=== PATIENT | male | born 1985 | race Caucasian/White ===

== ENCOUNTER 2018-10-12 19:42 | Inpatient (IN) | payer BC ==
[~2018-10-12] VITALS: Ht 167.6 cm; Wt 88.6 kg
[~2018-10-12 19:42] MED LIST: AMLO5TAB4 PO; HYDR-4011 PO; HYDR12.58 PO; IBUP-1542 PO; METH57CR7 TP; METO-319 PO
--- NOTE | 2018-10-12 21:10 | ERD ---
ER Documentation Chief Complaint Chief Complaint hx testicular ca, fever yesterday. see note HPI This is a 33-year-old man with a history of metastatic testicular carcinoma presenting with 3 days of fever and cough. He developed a left lateral neck mass and suspicion was for worsening metastasis but when he was evaluated by his oncologist 2 days ago he had a fever and his oncologist referred him to the emergency department for antibiotic management. Patient was admitted at [facility] for sepsis but he decided to leave AGAINST MEDICAL ADVICE because he wanted to make his oncology appointment. He has used 1 day of amoxicillin therapy but has continued fever and cough and came here for evaluation and admission for possible sepsis. Patient denies vomiting or diarrhea, no chest pain, no shortness of breath. ROS All systems reviewed and are negative except as per history of present illness. Medications Home Meds Active Scripts Hydrocodone/Acetaminophen ([place] 5-325 Tablet) 1 Each Tablet, 1 TAB PO Q6H PRN for PAIN, #20 TAB Prov:KIN BUENO 09/12/18 Amlodipine Besylate* (Norvasc*) 5 Mg Tablet, 5 MG PO DAILY, #60 TAB Prov:HAFSA BARRERA 01/09/18 Metoprolol Succinate* (Toprol XL*) 50 Mg Tab.er.24h, 50 MG PO DAILY, #60 TAB Prov:HAFSA BARRERA 01/09/18 Reported Medications Methyl Salicylate/Menthol (Bengay Greaseless Cream) 57 Gm Cream..g., 57 GM TP 09/12/18 Hydrochlorothiazide* (Hydrochlorothiazide*) 12.5 Mg Tablet, 12.5 MG PO DAILY for 90 Days, #90 09/12/18 Ibuprofen* (Ibuprofen*) 600 Mg Tablet, 600 MG PO Q8 PRN for PRN, TAB 01/05/18 Allergies Allergies: Coded Allergies: No Known Allergy (Unverified , 10/12/18) PMhx/Soc Metastatic testicular cancer, hypertension History of Surgery: Yes (Testicular Removal (left)) Anesthesia Reaction: No Hx Neurological Disorder: No Hx Respiratory Disorders: No Hx Cardiac Disorders: Yes (HTN) Hx Psychiatric Problems: No Hx Miscellaneous Medical Probl: Yes (Testicular CA) Hx Alcohol Use: No Hx Substance Use: No Hx Tobacco Use: No Smoking Status: Never smoker FmHx Family History: No diabetes Physical Exam Vitals Vital Signs Date Temp Pulse Resp B/P (MAP) Pulse Ox O2 O2 Flow FiO2 Time Delivery Rate 10/12/18 100.8 124 16 101/56 99 Room Air 22:27 (71) 10/12/18 Nasal 22:10 Cannula 10/12/18 103.0 135 16 113/69 97 Room Air 21:01 (84) 10/12/18 98.7 151 26 111/60 95 20:22 (77) Physical Exam GENERAL: Well-developed, appears dehydrated, febrile HEENT: Large nodular mass to the left lateral neck and upper chest, pale conjunctival, dry mucous membranes NEURO: Alert and oriented 3, cranial nerves II through XII intact bilaterally, pupils equal round reactive to light, no focal deficits or facial asymmetry, sensation intact distally Strength 5/5 in upper and lower extremities bilaterally CARDIAC: Tachycardic and regular no murmurs rubs or gallops LUNGS: Clear bilaterally no wheezing crackles or stridor ABDOMEN: Soft nontender, no guarding, no rigidity, no rebound, no psoas sign no obturator sign. SKIN: Hot and dry to touch, no abrasions, contusions, or hematomas, no lacerations, no ecchymosis, no target lesions, and without ulcers EXTREMITIES: No clubbing cyanosis or edema, calves are bilaterally symmetrical, no Homans sign, no popliteal cord sign. Distal pulses equal and bilateral PSYCH: Normal affect without agitation or irritability Result Diagram: 10/12/18205010/12/182050 Results 24 hrs Laboratory Tests Test 10/12/18 20:51 10/12/18 20:53 10/12/18 21:40 White Blood Count 16.2 10^3/ul Red Blood Count 4.16 10^6/ul Hemoglobin 9.2 g/dl Hematocrit 29.5 % Mean Corpuscular Volume 70.9 fl Mean Corpuscular Hemoglobin 22.1 pg Mean Corpuscular 31.2 g/dl Hemoglobin Concent Red Cell Distribution Width 16.4 % Platelet Count 577 10^3/UL Mean Platelet Volume 8.5 fl Immature Granulocytes % 0.900 % Neutrophils % 81.4 % Lymphocytes % 9.3 % Monocytes % 8.2 % Eosinophils % 0.0 % Basophils % 0.2 % Nucleated Red Blood Cells % 0.0 /100WBC Immature Granulocytes # 0.140 10^3/ul Neutrophils # 13.2 10^3/ul Lymphocytes # 1.5 10^3/ul Monocytes # 1.3 10^3/ul Eosinophils # 0.0 10^3/ul Basophils # 0.0 10^3/ul Nucleated Red Blood Cells # 0.0 10^3/ul Prothrombin Time 16.6 Sec Prothrombin Time Ratio 1.3 INR International 1.33 Normalized Ratio Activated Partial Thromboplast 40.5 Sec Time Sodium Level 134 mmol/L Potassium Level 4.3 mmol/L Chloride Level 95 mmol/L Carbon Dioxide Level 25 mmol/L Anion Gap 14 Blood Urea Nitrogen 18 mg/dl Creatinine 1.27 mg/dl Est Glomerular Filtrat > 60 mL/min Rate mL/min Glucose Level 127 mg/dl Calcium Level 9.4 mg/dl Total Bilirubin 0.4 mg/dl Direct Bilirubin 0.00 mg/dl Indirect Bilirubin 0.4 mg/dl Aspartate Amino Transf (AST/SGOT) 63 IU/L Alanine 20 IU/L Aminotransferase (ALT/SGPT) Alkaline Phosphatase 791 IU/L Troponin I < 0.012 ng/ml Total Protein 9.5 g/dl Albumin 3.9 g/dl Globulin 5.60 g/dl Albumin/Globulin Ratio 0.69 Lipase 55 U/L POC Venous Lactate 1.7 mmol/L Urine Color BO Urine Clarity CLOUDY Urine pH 5.0 Urine Specific [place] 1.021 Urine Ketones NEGATIVE mg/dL Urine Nitrite NEGATIVE mg/dL Urine Bilirubin NEGATIVE mg/dL Urine Urobilinogen 2+ mg/dL Urine Leukocyte Esterase NEGATIVE Suzie/ul Urine Microscopic RBC 92 /HPF Urine Microscopic WBC 11 /HPF Urine Mucus FEW /HPF Urine Hemoglobin 2+ mg/dL Urine Glucose NEGATIVE mg/dL Urine Total Protein 2+ mg/dl Current Medications Medications Dose Sig/Vasyl Start Time Status Last (Trade) Ordered Route PRN Stop Time Admin Dose Reason Admin Sodium 4,000 ml BOLUS OVER 2 10/12/18 DC 10/12/18 Chloride HOURS STAT 21:14 10/12/18 21:38 (NS) IV* 21:16 Ceftriaxone 50 ml @ ONCE ONCE 10/12/18 DC 10/12/18 Sodium 100 mls/hr IVPB 21:30 10/12/18 21:43 21:59 Vancomycin 250 ml @ ONCE ONCE 10/12/18 10/12/18 HCl 125 mls/hr IVPB 21:30 10/12/18 21:39 23:29 Ibuprofen 600 mg ONCE ONCE 10/12/18 DC 10/12/18 (Motrin) PO 22:00 10/12/18 21:37 22:01 Amlodipine 5 mg DAILY PO 10/13/18 Besylate 09:00 (Norvasc) 1 tab Q6H PRN 10/12/18 Acetaminophen PO PAIN 22:30 / Hydrocodone Bitart ([place] (5/325)) Metoprolol 50 mg DAILY PO 10/13/18 Succinate 09:00 (Toprol Xl) Sodium 1,000 ml @ [id number] IV 10/12/18 Chloride 80 mls/hr 22:25 10/13/18 10:54 IV Flush 3 ml PER 10/12/18 (NS 3 ml) PROTOCOL IV 22:30 Ondansetron 4 mg Q6H PRN 10/12/18 HCl (Zofran IV 22:30 Inj) NAUSEA/VOMITI NG 650 mg Q6H PRN 10/12/18 Acetaminophen PO .PAIN 1-3 22:30 (Tylenol OR TEMP Tab) Docusate 100 mg Q12H PRN 10/12/18 Sodium PO 22:30 (Colace) .CONSTIPATION Bisacodyl 5 mg DAILY PRN 10/12/18 (Dulcolax) PO 22:30 .CONSTIPATION Enoxaparin 40 mg DAILY SC 10/13/18 Sodium 09:00 (Lovenox) Azithromycin 250 ml @ Q24H IVPB 10/12/18 250 mls/hr 22:30 Ceftriaxone 50 ml @ ONCE ONCE 10/13/18 Sodium 100 mls/hr IVPB 22:30 10/13/18 22:59 Procedures/MDM IV line was established patient was placed on cryptologic support specialist rhythm strip revealed a sinus tachycardia at 140 bpm with upright P and T waves. Patient was febrile. Blood and urine cultures have been ordered results are pending I will follow-up. I administered 4 L normal saline IV, ibuprofen 600 mg p.o., ceftriaxone 1 g IV, vancomycin 1 g IV Lactic acid was low at 1.7. CBC reveals a leukocytosis of 16 and mild anemia with a hemoglobin of 9.2, electrolytes revealed dehydration with a BUN/creatinine of 18/1.3, liver function tests were unremarkable although alkaline phosphatase elevated at 791, troponin negative, urinalysis negative for infection. 1 view chest x-ray performed, read by me reveals a left lower lobe infiltrate, no pneumothorax, no air under the diaphragm. Patient's infectious symptoms have not stabilized and the patient is at risk of rapid decompensation. The patient will be admitted for careful hydration, antibiotic therapy, and infectious source control. SEVERE SEPSIS CRITERIA: Infectious source: Pneumonia End organ damage indicated by: None SEPSIS MANAGEMENT Time of recognition of sepsis: Upon arrival. Time of recognition of severe sepsis: No severe sepsis at this time. Time of recognition of septic shock: No septic shock at this time. 3 HOUR BUNDLE Blood cultures x 2 before broad-spectrum antibiotics: Yes 30 ml/kg NS bolus completed Initial lactate 1.7 Repeat lactate pending SEPTIC SHOCK ASSESSMENT: No lactic acid > 4.0 No persistent hypotension (SBP < 90 or 40 mmHg drop, MAP < 65) despite 30 mL/kg IV fluid bolus VOLUME REASSESSMENT FOR SEPTIC SHOCK: Reevaluation Time: 2200 Temp 100 F, pulse 120 bpm, respiratory rate 30 breaths/min, BP 114/80 Heart tachycardic and regular Lungs no crackles Skin warm & dry Cap Refill less than 2 seconds Peripheral pulses radially present PERSISTENT HYPOTENSION TREATMENT: Comfort care no Central line not Required Vasopressor started not required I considered further perfusion assessment with CVP measurement, SCVO2, bedside ultrasound volume assessment, passive leg raise, trial of further fluid bolus. And proceeded with 30 ml/kg fluid bolus of NSS, broad spectrum antibiotics, and admission. CRITICAL CARE: Critical care time 35 minutes, this was time separate from other billable procedures. Emergent fluid management while maintaining close respiratory support. Provision of immediate and broad-spectrum antibiotic therapy. Simultaneous assessment for possible sources in order to direct targeted therapy. Consideration for invasive and chemical support to prevent cardiopulmonary collapse. Critical care time is independent of procedures performed. Accepting Care Team: Current data and ongoing care discussed. Time: Time of admission Primary Provider: Hospitalist Consulting: Infectious disease, oncology Outstanding Data: none Departure Diagnosis: Primary Impression: Sepsis Sepsis type: sepsis due to unspecified organism Qualified Codes: A41.9 - Sepsis, unspecified organism Additional Impressions: Pneumonia Pneumonia type: due to unspecified organism Laterality: left Lung location: lower lobe of lung Qualified Codes: J18.1 - Lobar pneumonia, unspecified organism Testicular carcinoma Laterality: unspecified laterality Qualified Codes: C62.90 - Malignant neoplasm of unspecified testis, unspecified whether descended or undescended Condition: Serious BRUCE SANDERS MD Oct 12, 2018 21:10
[2018-10-12] MEDS ORDERED: SODIUM CHLORIDE 0.9% 1L BAG IV* STA (21:14)
[2018-10-12] MEDS ORDERED: CEFTRIAXONE 1 GM/50 ML (PMX) 50 ML IVPB ONE (21:30)
[2018-10-12] MEDS ORDERED: VANCOMYCIN 1 GM (PMX) 250 ML IVPB ONE (21:30)
[2018-10-12] MEDS ORDERED: IBUPROFEN 600 MG TAB PO ONE (22:00)
[2018-10-12] MEDS ORDERED: BISACODYL (EC) 5 MG TAB PO PRN (22:30)
[2018-10-12] MEDS ORDERED: DOCUSATE SODIUM 100 MG CAP PO PRN (22:30)
[2018-10-12] MEDS ORDERED: ONDANSETRON 4 MG INJ IV PRN (22:30)
[2018-10-12] MEDS ORDERED: HYDROCODONE/APAP (5/325) TAB PO PRN (22:30)
[2018-10-12] MEDS ORDERED: NACL 0.9% 3 ML SYG IV SCH (22:30)
[2018-10-12] MEDS ORDERED: AZITHROMYCIN 500MG/NS (PMX) 250 ML IVPB SCH (22:30)
--- NOTE | 2018-10-12 23:22 | HP ---
Date/Time of Note Date/Time of Note DATE: 10/12/18 TIME: 23:21 Assessment/Plan VTE Prophylaxis Pharmacological prophylaxis: LMWH Lines/Catheters IV C[facility]ter Type [facility]from [facility]): Saline Lock Assessment/Plan Hospital Course This is a 33-year-old male being admitted to the Medr floor for: #1 sepsis: Secondary to community acquired pneumonia. He did receive ceftriaxone and azithromycin in the ED, given patient's likely current immunocom promised state I will put him on vancomycin and Zosyn for broader coverage. Will await culture results. #2 community acquired pneumonia: Vancomycin and Zosyn, await culture results. 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 Dr. roxie reynolds [phone]. Family has requested if we can talk to the doctor in the a.m. I will defer this to the day team. Continue patient's home medications for pain including Dilaudid. #4 hypertension: Resume patient's home medications as indicated #5 DVT GI prophylaxis: Lovenox, no GI prophylaxis indicated Further treatment strategy will be implemented as per the clinical course. Result Diagram: 10/12/18205010/12/182050 Results 24hrs Laboratory Tests Test 10/12/18 20:51 10/12/18 20:53 10/12/18 21:40 10/12/18 22:58 White Blood Count 16.2 #H Red Blood Count 4.16 L Hemoglobin 9.2 L Hematocrit 29.5 L Mean Corpuscular Volume 70.9 L Mean Corpuscular 22.1 L Hemoglobin Mean Corpuscular 31.2 L Hemoglobin Concent Red Cell Distribution 16.4 H Width Platelet Count 577 H Mean Platelet Volume 8.5 Immature Granulocytes % 0.900 H Neutrophils % 81.4 H Lymphocytes % 9.3 L Monocytes % 8.2 Eosinophils % 0.0 Basophils % 0.2 Nucleated Red Blood 0.0 Cells % Immature Granulocytes # 0.140 H Neutrophils # 13.2 H Lymphocytes # 1.5 Monocytes # 1.3 H Eosinophils # 0.0 Basophils # 0.0 Nucleated Red Blood 0.0 Cells # Prothrombin Time 16.6 H Prothrombin Time Ratio 1.3 INR International 1.33 Normalized Ratio Activated 40.5 H Partial Thromboplast Time Sodium Level 134 L Potassium Level 4.3 Chloride Level 95 L Carbon Dioxide Level 25 Anion Gap 14 H Blood Urea Nitrogen 18 Creatinine 1.27 H Est Glomerular Filtrat > 60 Rate mL/min Glucose Level 127 Calcium Level 9.4 Total Bilirubin 0.4 Direct Bilirubin 0.00 Indirect Bilirubin 0.4 Aspartate Amino 63 H Transf (AST/SGOT) Alanine 20 Aminotransferase (ALT/SG PT) Alkaline Phosphatase 791 H Troponin I < 0.012 Total Protein 9.5 H Albumin 3.9 Globulin 5.60 H Albumin/Globulin Ratio 0.69 Lipase 55 POC Venous Lactate 1.7 1.1 Urine Color BO Urine Clarity CLOUDY A Urine pH 5.0 Urine Specific [place] 1.021 Urine Ketones NEGATIVE Urine Nitrite NEGATIVE Urine Bilirubin NEGATIVE Urine Urobilinogen 2+ H Urine Leukocyte Esterase NEGATIVE Urine Microscopic RBC 92 H Urine Microscopic WBC 11 H Urine Mucus FEW A Urine Hemoglobin 2+ H Urine Glucose NEGATIVE Urine Total Protein 2+ H HPI/ROS Admit Date/Time Admit Date/Time Hx of Present Illness cc: Fevers, cough This is a 33-year-old man with a history of metastatic testicular seminoma carcinoma presenting with 3 days of fever and cough. He developed a left lateral neck mass and suspicion was for worsening metastasis but when he was evaluated by his oncologist 2 days ago he had a fever and his oncologist referred him to the emergency department for antibiotic management. Patient was admitted at [facility] for sepsis but he decided to leave AGAINST MEDICAL ADVICE because he wanted to make his oncology appointment at [facility]. He has used 1 day of amoxicillin therapy but has continued fever and cough and came here for evaluation and admission for possible sepsis. Patient denies vomiting or diarrhea, no chest pain, no shortness of breath. Patient was scheduled to have CT studies tomorrow done as well at the discretion of the patient's oncologist [phone]. Allergies: NKDA Medications: See OCT ROS Const: As per HPI Eyes : No pain discharge or redness or change in visual acuity ENT: No pain, sore throat, congestion, congestion, dysphagia or discharge Respiratory: As per HPI Cardiovascular: No chest pain, palpitation, PND, or edema GI : no change in appetite, abdominal pain, nausea, vomiting, diarrhea, constipation, or change in the color his stool Genitourinary: No dysuria, hematuria, flank pain , discharge or CVA tenderness Musculoskeletal: No joint pain, back pain, neck pain, restricted range of motion in neck or joints Skin: As per HPI Neuro: No headache, dizziness, syncope, seizure, focal weakness Endocrine: No polyuria, polydipsia, temperature intolerance Psych: No hallucination, depression, anxiety or suicidal ideation PMH/Family/Social Past Medical History Hypertension, testicular seminoma Medications Current Medications Vancomycin HCl 250 ml @ 125 mls/hr ONCE ONCE IVPB Last administered on 10/12/18at 21:39; Admin Dose 125 MLS/HR; Start 10/12/18 at 21:30; Stop 10/12/18 at 23:29 Amlodipine Besylate (Norvasc) 5 mg DAILY PO ; Start 10/13/18 at 09:00 Acetaminophen/ Hydrocodone Bitart ([place] (5/325)) 1 tab Q6H PRN PO PAIN; Start 10/12/18 at 22:30 Metoprolol Succinate (Toprol Xl) 50 mg DAILY PO ; Start 10/13/18 at 09:00 Sodium Chloride 1,000 ml @ 80 mls/hr [id number] IV ; Start 10/12/18 at 22:25; Stop 10/13/18 at 10:54 IV Flush (NS 3 ml) 3 ml PER PROTOCOL IV ; Start 10/12/18 at 22:30 Ondansetron HCl (Zofran Inj) 4 mg Q6H PRN IV NAUSEA/VOMITING; Start 10/12/18 at 22:30 Acetaminophen (Tylenol Tab) 650 mg Q6H PRN PO .PAIN 1-3 OR TEMP; Start 10/12/18 at 22:30 Docusate Sodium (Colace) 100 mg Q12H PRN PO .CONSTIPATION; Start 10/12/18 at 22:30 Bisacodyl (Dulcolax) 5 mg DAILY PRN PO .CONSTIPATION; Start 10/12/18 at 22:30 Enoxaparin Sodium (Lovenox) 40 mg DAILY SC ; Start 10/13/18 at 09:00 Azithromycin 250 ml @ 250 mls/hr Q24H IVPB ; Start 10/12/18 at 22:30 Ceftriaxone Sodium 50 ml @ 100 mls/hr ONCE ONCE IVPB ; Start 10/13/18 at 22:30; Stop 10/13/18 at 22:59 Coded Allergies: No Known Allergy (Unverified , 10/12/18) Past Surgical History Left testicle removal, left kidney stenting Family History Significant Family History: cancer (Pancreatic cancer: Grandma) Social History Alcohol Use: none Smoking Status: Never smoker Drug Use: none Exam/Review of Systems Vital Signs Vitals Vital Signs Date Temp Pulse Resp B/P (MAP) Pulse Ox O2 O2 Flow FiO2 Time Delivery Rate 10/12/18 99.8 120 16 120/16 98 Room Air 23:09 (50) Exam Exam General: Patient is a pleasant male currently lying in bed he does appear pale, dehydrated HEENT: Atraumatic, normocephalic. The pupils are equal, round and reactive. Extraocular motor are intact, mucous membranes dry, Large nodular mass to the left lateral neck and upper chest, Neck: Supple with full range of motion. No rigidity or meningismus Chest: Nontender Lungs: Coarse breath sounds bilaterally Heart: Sinus tachycardia Abdomen: Soft , nontender, nondistended , bowel sounds are present. No guarding no rebound tenderness , No masses or organomegaly. No costovertebral temporal angle mass Extremities: Normal to inspection, no edema no cyanosis Skin: Pale, Neurologic: Normal mental status, speech normal, cranial nerves II through XII are intact, motor and sensory are intact, no focal weakness Additional Comments PROCEDURE: US abdomen limited CLINICAL INDICATION: Abdominal pain. TECHNIQUE: Multiple real-time sonographic images of the right upper quadrant of the abdomen were obtained. COMPARISON: Abdominal sonogram dated 01/06/2018. FINDINGS: Liver parenchymal echogenicity and echotexture is normal. Liver measures 18.4 cm in length. There is no visible focal liver lesion. There is no intrahepatic biliary ductal dilatation. Common bile duct measures 4 mm in diameter, within normal limits. Limited Doppler interrogation of main portal vein demonstrates antegrade flow. There are multiple gallstones in the gallbladder without gallbladder wall thickening or pericholecystic fluid. No ascites is seen. Pancreas is obscured by the overlying bowel gas. Images of the right kidney demonstrate no hydronephrosis. Right kidney measures 12.4 x 6 x 7.7 cm. IMPRESSION: 1. No visible focal liver lesion or biliary ductal dilatation. 2. Cholelithiasis without sonographic evidence of acute cholecystitis. RPTAT:HAJM Physician [place] Date Time Electronically viewed and signed by Jessica Reilly Physician on 10/12/2018 23:40 RM/ CC: BRUCE SANDERS MD [id number] PROCEDURE: XR Chest. CLINICAL INDICATION: Cough TECHNIQUE: A single portable view of the chest was obtained. COMPARISON: 09/12/2018 FINDINGS: The cardiomediastinal silhouette is within normal limits. Patchy air space disease in the left lower lobe is seen with the suggestion of a small pleural effusion. Mild atelectasis in the right lung base is seen. The remaining lungs and pleural spaces are clear. The soft tissues and osseous structures are unremarkable. IMPRESSION: Patchy left basilar infiltrate with a small left pleural effusion. Continued follow-up until resolution is suggested. RPTAT: HPNM Mack Santiago Physician Date Time Electronically viewed and signed by Mack Santiago Physician on 10/12/2018 21:56 / CC: BRUCE SANDERS MD [id number] AR YAÑEZ Oct 12, 2018 23:22
[2018-10-12] MEDS ORDERED: AMOX1TAB10 PO (23:58)
[2018-10-12] MEDS ORDERED: HYDR2TAB36 PO (23:58)
[2018-10-13 01:19] VITALS: Ht 167.6 cm; Wt 88.6 kg
[2018-10-13 01:36] VITALS: BP 131/73; PULSE 108; RESP 20
[2018-10-13] MEDS: SOD CHLORIDE 0.9% 1,000 ML IV SCH ×2 (01:54→09:11)
[2018-10-13] MEDS: HYDROmorphONE 2 MG TAB PO PRN ×3 (02:06→19:50)
[2018-10-13] MEDS: DOCUSATE SODIUM 100 MG CAP PO SCH ×3 (02:27→20:56)
[2018-10-13] MEDS: POLYETHYLENE GLYCOL 17 GM PACKET PO SCH ×2 (02:27→08:21)
[2018-10-13 02:36] VITALS: BP 125/73; PULSE 112; RESP 18
[2018-10-13] MEDS: PIPER-TAZO 3.375 GM IV (PMX) 100 ML IVPB SCH ×4 (05:40→23:47)
[2018-10-13] MEDS ORDERED: VANCOMYCIN IV PER PHARMACY XX SCH (06:00)
[2018-10-13] MEDS: ENOXAPARIN 40 MG/0.4 ML SYG SC SCH (08:19)
[2018-10-13] MEDS: METOPROLOL (XL) 50 MG TAB PO SCH (08:21)
[2018-10-13] MEDS: AMLODIPINE 5 MG TAB PO SCH (08:22)
[2018-10-13 08:33] VITALS: BP 150/87; PULSE 130; RESP 17
[2018-10-13] MEDS ORDERED: VANCOMYCIN HCL 1.25 GM in SOD CHLORIDE 0.9% 250 ML IVPB SCH (09:00)
[2018-10-13] MEDS: VANCOMYCIN 1 GM 250 ML IVPB SCH ×2 (09:36→16:18)
[2018-10-13] MEDS: ACETAMINOPHEN 325 MG TAB PO PRN ×3 (10:18→16:28)
[2018-10-13 14:59] VITALS: BP 141/83; PULSE 133; RESP 16
--- NOTE | 2018-10-13 15:32 | PN ---
Date/Time of Note Date/Time of Note DATE: 10/13/18 TIME: 15:32 Assessment/Plan VTE Prophylaxis Risk score (from Nsg)>0 risk: 2 SCD applied (from Nsg): Yes Pharmacological prophylaxis: LMWH Lines/Catheters IV Catheter Type (from Nrsg): Saline Lock Assessment/Plan Hospital Course SUBJECTIVE: Denies any pain. Complains of bloating. OBJECTIVE: Physical Exam General: Adequately build 33 year-old male lying in bed in no apparent distress. HEENT: Normocephalic, atraumatic. Eyes: Anicteric sclerae, conjunctivae clear. ENT: Nasal septum midline, oral mucosa moist. Neck supple, no JVD noticed. Respiratory: Bilaterally clear breath sounds. No use of accessory muscles of respiration. No adventitious breath sounds. Cardiovascular: S1, S2 heard. No murmurs or gallops. Abdomen: Soft, nontender, and nondistended. Bowel sounds positive in all 4 quadrants. Genitourinary: Deferred. Extremities: No cyanosis, no clubbing, no edema. Peripheral pulses palpable. Neurologic: Cranial nerves II through XII grossly intact. The patient is awake, alert, and oriented. Skin: Normal skin turgor. No skin rashes. Labs & Vitals per chart ASSESSMENT & PLAN 33-year-old male with comorbidities including obesity, hypertension, and metastatic testicular seminoma, who came to the emergency room with a chief complaint of fevers and cough. The patient was noticed to have leukocytosis, tachycardia, and febrile illness. Chest x-ray showing left basilar infiltrate with a small left pleural effusion. The patient was admitted to inpatient setting for further treatment and evaluation. 1. Sepsis with leukocytosis, tachycardia, and febrile illness, present on admission secondary to community-acquired pneumonia -Continue antimicrobials -Await pancultures. 2. Community-acquired pneumonia -Continue Zosyn plus vancomycin. 3. Microcytic hypochromic anemia. -Etiology unclear. -Obtain iron panel. 4. Acute kidney injury. -Nonoliguric. -Resolved. -Most probably secondary to underlying sepsis. 5. Prediabetes -Hemoglobin A1c 6.0. Glycemic trends. 6. Obesity. -BMI more than 31 kg/m. -Advised weight reduction. 7. History of metastatic seminoma. -Being followed at oncology at [facility]. 8. Fluids, electrolytes, and nutrition. -Low-cholesterol diet. 9. DVT prophylaxis. -Subcutaneous Lovenox. 10. Plan. -Continue antimicrobials. -Await final cultures. -Await clinical improvement. The patient was seen in collaboration with Dr. Chester. Result Diagram: 10/13/18 0538 10/13/18 0538 Results 24hrs Laboratory Tests Test 10/12/18 20:51 10/12/18 20:53 10/12/18 21:40 10/12/18 22:58 White Blood Count 16.2 #H Red Blood Count 4.16 L Hemoglobin 9.2 L Hematocrit 29.5 L Mean Corpuscular Volume 70.9 L Mean Corpuscular 22.1 L Hemoglobin Mean Corpuscular 31.2 L Hemoglobin Concent Red Cell Distribution 16.4 H Width Platelet Count 577 H Mean Platelet Volume 8.5 Immature Granulocytes % 0.900 H Neutrophils % 81.4 H Lymphocytes % 9.3 L Monocytes % 8.2 Eosinophils % 0.0 Basophils % 0.2 Nucleated Red Blood 0.0 Cells % Immature Granulocytes # 0.140 H Neutrophils # 13.2 H Lymphocytes # 1.5 Monocytes # 1.3 H Eosinophils # 0.0 Basophils # 0.0 Nucleated Red Blood 0.0 Cells # Prothrombin Time 16.6 H Prothrombin Time Ratio 1.3 INR International 1.33 Normalized Ratio Activated 40.5 H Partial Thromboplast Time Sodium Level 134 L Potassium Level 4.3 Chloride Level 95 L Carbon Dioxide Level 25 Anion Gap 14 H Blood Urea Nitrogen 18 Creatinine 1.27 H Est Glomerular Filtrat > 60 Rate mL/min Glucose Level 127 Calcium Level 9.4 Total Bilirubin 0.4 Direct Bilirubin 0.00 Indirect Bilirubin 0.4 Aspartate Amino 63 H Transf (AST/SGOT) Alanine 20 Aminotransferase (ALT/SG PT) Alkaline Phosphatase 791 H Troponin I < 0.012 Total Protein 9.5 H Albumin 3.9 Globulin 5.60 H Albumin/Globulin Ratio 0.69 Lipase 55 POC Venous Lactate 1.7 1.1 Urine Color BO Urine Clarity CLOUDY A Urine pH 5.0 Urine Specific [place] 1.021 Urine Ketones NEGATIVE Urine Nitrite NEGATIVE Urine Bilirubin NEGATIVE Urine Urobilinogen 2+ H Urine Leukocyte Esterase NEGATIVE Urine Microscopic RBC 92 H Urine Microscopic WBC 11 H Urine Mucus FEW A Urine Hemoglobin 2+ H Urine Glucose NEGATIVE Urine Total Protein 2+ H Test 10/13/18 01:34 10/13/18 05:38 Lactic Acid Level 1.2 White Blood Count 16.1 H Red Blood Count 3.62 L Hemoglobin 8.1 L Hematocrit 26.2 L Mean Corpuscular Volume 72.4 L Mean Corpuscular 22.4 L Hemoglobin Mean Corpuscular 30.9 L Hemoglobin Concent Red Cell Distribution 16.5 H Width Platelet Count 436 #H Mean Platelet Volume 8.6 Immature Granulocytes % 1.200 H Neutrophils % 78.9 H Lymphocytes % 8.7 L Monocytes % 11.0 Eosinophils % 0.1 Basophils % 0.1 Nucleated Red Blood 0.0 Cells % Immature Granulocytes # 0.200 H Neutrophils # 12.7 H Lymphocytes # 1.4 Monocytes # 1.8 H Eosinophils # 0.0 Basophils # 0.0 Nucleated Red Blood 0.0 Cells # Sodium Level 140 Potassium Level 4.0 Chloride Level 105 # Carbon Dioxide Level 25 Anion Gap 10 Blood Urea Nitrogen 15 Creatinine 0.97 Est Glomerular Filtrat > 60 Rate mL/min Glucose Level 92 Hemoglobin A1c 6.0 H Calcium Level 8.5 Magnesium Level 1.7 Total Bilirubin 0.4 Direct Bilirubin 0.00 Indirect Bilirubin 0.4 Aspartate Amino 49 H Transf (AST/SGOT) Alanine 21 Aminotransferase (ALT/SG PT) Alkaline Phosphatase 668 H Total Protein 7.9 # Albumin 3.1 L Globulin 4.80 H Albumin/Globulin Ratio 0.64 Triglycerides Level 93 Cholesterol Level 144 LDL Cholesterol, 106 Calculated HDL Cholesterol 19 L Cholesterol/HDL Ratio 7.5 Thyroid Stimulating 0.609 Hormone (TSH) Exam/Review of Systems Exam Vitals Vital Signs Date Temp Pulse Resp B/P (MAP) Pulse Ox O2 O2 Flow FiO2 Time Delivery Rate 10/13/18 100.3 133 16 141/83 95 Room Air 14:59 (102) Intake and Output 10/12/18 10/12/18 10/13/18 1414:59 22:59 06:59 IntakeIntake Total 770 ml BalanceBalance 770 ml Results Results 24hrs Laboratory Tests Test 10/12/18 20:51 10/12/18 20:53 10/12/18 21:40 10/12/18 22:58 White Blood Count 16.2 #H Red Blood Count 4.16 L Hemoglobin 9.2 L Hematocrit 29.5 L Mean Corpuscular Volume 70.9 L Mean Corpuscular 22.1 L Hemoglobin Mean Corpuscular 31.2 L Hemoglobin Concent Red Cell Distribution 16.4 H Width Platelet Count 577 H Mean Platelet Volume 8.5 Immature Granulocytes % 0.900 H Neutrophils % 81.4 H Lymphocytes % 9.3 L Monocytes % 8.2 Eosinophils % 0.0 Basophils % 0.2 Nucleated Red Blood 0.0 Cells % Immature Granulocytes # 0.140 H Neutrophils # 13.2 H Lymphocytes # 1.5 Monocytes # 1.3 H Eosinophils # 0.0 Basophils # 0.0 Nucleated Red Blood 0.0 Cells # Prothrombin Time 16.6 H Prothrombin Time Ratio 1.3 INR International 1.33 Normalized Ratio Activated 40.5 H Partial Thromboplast Time Sodium Level 134 L Potassium Level 4.3 Chloride Level 95 L Carbon Dioxide Level 25 Anion Gap 14 H Blood Urea Nitrogen 18 Creatinine 1.27 H Est Glomerular Filtrat > 60 Rate mL/min Glucose Level 127 Calcium Level 9.4 Total Bilirubin 0.4 Direct Bilirubin 0.00 Indirect Bilirubin 0.4 Aspartate Amino 63 H Transf (AST/SGOT) Alanine 20 Aminotransferase (ALT/SG PT) Alkaline Phosphatase 791 H Troponin I < 0.012 Total Protein 9.5 H Albumin 3.9 Globulin 5.60 H Albumin/Globulin Ratio 0.69 Lipase 55 POC Venous Lactate 1.7 1.1 Urine Color BO Urine Clarity CLOUDY A Urine pH 5.0 Urine Specific [place] 1.021 Urine Ketones NEGATIVE Urine Nitrite NEGATIVE Urine Bilirubin NEGATIVE Urine Urobilinogen 2+ H Urine Leukocyte Esterase NEGATIVE Urine Microscopic RBC 92 H Urine Microscopic WBC 11 H Urine Mucus FEW A Urine Hemoglobin 2+ H Urine Glucose NEGATIVE Urine Total Protein 2+ H Test 10/13/18 01:34 10/13/18 05:38 Lactic Acid Level 1.2 White Blood Count 16.1 H Red Blood Count 3.62 L Hemoglobin 8.1 L Hematocrit 26.2 L Mean Corpuscular Volume 72.4 L Mean Corpuscular 22.4 L Hemoglobin Mean Corpuscular 30.9 L Hemoglobin Concent Red Cell Distribution 16.5 H Width Platelet Count 436 #H Mean Platelet Volume 8.6 Immature Granulocytes % 1.200 H Neutrophils % 78.9 H Lymphocytes % 8.7 L Monocytes % 11.0 Eosinophils % 0.1 Basophils % 0.1 Nucleated Red Blood 0.0 Cells % Immature Granulocytes # 0.200 H Neutrophils # 12.7 H Lymphocytes # 1.4 Monocytes # 1.8 H Eosinophils # 0.0 Basophils # 0.0 Nucleated Red Blood 0.0 Cells # Sodium Level 140 Potassium Level 4.0 Chloride Level 105 # Carbon Dioxide Level 25 Anion Gap 10 Blood Urea Nitrogen 15 Creatinine 0.97 Est Glomerular Filtrat > 60 Rate mL/min Glucose Level 92 Hemoglobin A1c 6.0 H Calcium Level 8.5 Magnesium Level 1.7 Total Bilirubin 0.4 Direct Bilirubin 0.00 Indirect Bilirubin 0.4 Aspartate Amino 49 H Transf (AST/SGOT) Alanine 21 Aminotransferase (ALT/SG PT) Alkaline Phosphatase 668 H Total Protein 7.9 # Albumin 3.1 L Globulin 4.80 H Albumin/Globulin Ratio 0.64 Triglycerides Level 93 Cholesterol Level 144 LDL Cholesterol, 106 Calculated HDL Cholesterol 19 L Cholesterol/HDL Ratio 7.5 Thyroid Stimulating 0.609 Hormone (TSH) Medications Medication Current Medications Amlodipine Besylate (Norvasc) 5 mg DAILY PO Last administered on 10/13/18at 08:22; Admin Dose 5 MG; Start 10/13/18 at 09:00 Acetaminophen/ Hydrocodone Bitart ([place] (5/325)) 1 tab Q6H PRN PO PAIN; Start 10/12/18 at 22:30 Metoprolol Succinate (Toprol Xl) 50 mg DAILY PO Last administered on 10/13/18at 08:21; Admin Dose 50 MG; Start 10/13/18 at 09:00 Sodium Chloride 1,000 ml @ 100 mls/hr Q10H IV Last administered on 10/13/18at 01:54; Admin Dose 80 MLS/HR; Start 10/12/18 at 22:25; Stop 10/13/18 at 19:10 IV Flush (NS 3 ml) 3 ml PER PROTOCOL IV ; Start 10/12/18 at 22:30 Ondansetron HCl (Zofran Inj) 4 mg Q6H PRN IV NAUSEA/VOMITING; Start 10/12/18 at 22:30 Acetaminophen (Tylenol Tab) 650 mg Q6H PRN PO .PAIN 1-3 OR TEMP Last administered on 10/13/18at 10:19; Admin Dose 650 MG; Start 10/12/18 at 22:30 Docusate Sodium (Colace) 100 mg Q12H PRN PO .CONSTIPATION; Start 10/12/18 at 22:30 Bisacodyl (Dulcolax) 5 mg DAILY PRN PO .CONSTIPATION; Start 10/12/18 at 22:30 Enoxaparin Sodium (Lovenox) 40 mg DAILY SC Last administered on 10/13/18at 08:19; Admin Dose 40 MG; Start 10/13/18 at 09:00 Hydromorphone HCl (Dilaudid) 2 mg Q3H PRN PO PAIN Last administered on 10/13/18at 08:14; Admin Dose 2 MG; Start 10/13/18 at 02:30 Docusate Sodium (Colace) 100 mg BID PO ; Start 10/13/18 at 02:30 Polyethylene Glycol (Miralax) 17 gm DAILY PO ; Start 10/13/18 at 02:30 Vancomycin HCl (Vanco Iv Per Pharmacy) VANCOMYCIN PER PHARMACY PER PROTOCOL XX ; Start 10/13/18 at 06:00 Piperacillin Sod/ Tazobactam Sod 100 ml @ 200 mls/hr Q6 IVPB Last administered on 10/13/18at 12:30; Admin Dose 200 MLS/HR; Start 10/13/18 at 06:00 Vancomycin HCl 250 ml @ 125 mls/hr Q8H IVPB Last administered on 10/13/18at 09:36; Admin Dose 125 MLS/HR; Start 10/13/18 at 09:00 Miscellaneous Information (*Rx Drug Level Order Reminder*) VANCO TROUGH @ 0,800 ONCE ONCE XX ; Start 10/14/18 at 08:00; Stop 10/14/18 at 08:01 DARRYL VIVEROS NP Oct 13, 2018 15:32
[2018-10-13 20:38] VITALS: BP 114/68; PULSE 121; RESP 18
[2018-10-13 21:47] VITALS: PULSE 115
[2018-10-13] MEDS ORDERED: CEFTRIAXONE 1 GM/50 ML (PMX) 50 ML IVPB SCH (22:30)
[2018-10-13] MEDS ORDERED: CEFTRIAXONE 1 GM/50 ML (PMX) 50 ML IVPB ONE (22:30)
[2018-10-13] MEDS: HYDROmorphONE 1 MG/ML SYG IV PRN (23:47)
[2018-10-14] MEDS: VANCOMYCIN 1 GM 250 ML IVPB SCH ×3 (00:48→21:57)
[2018-10-14 02:00] VITALS: BP 115/67; PULSE 146; RESP 18
[2018-10-14] MEDS: ACETAMINOPHEN 325 MG TAB PO PRN ×3 (03:32→17:10)
[2018-10-14] MEDS ORDERED: SOD CHLORIDE 0.9% 1,000 ML IV ONE (04:00)
[2018-10-14] MEDS: HYDROmorphONE 1 MG/ML SYG IV PRN ×4 (04:31→20:37)
[2018-10-14 04:41] VITALS: PULSE 132
[2018-10-14] MEDS: MEROPENEM 1 GM/50ML(PMX) 50 ML IVPB SCH ×2 (05:36→14:00)
[2018-10-14 05:37] VITALS: PULSE 128
[2018-10-14 08:26] VITALS: BP 155/93; PULSE 125; RESP 17
[2018-10-14] MEDS: POLYETHYLENE GLYCOL 17 GM PACKET PO SCH (09:00)
[2018-10-14] MEDS: DOCUSATE SODIUM 100 MG CAP PO SCH ×2 (09:00→21:00)
[2018-10-14] MEDS: METOPROLOL (XL) 50 MG TAB PO SCH (09:02)
[2018-10-14] MEDS: AMLODIPINE 5 MG TAB PO SCH (09:03)
[2018-10-14] MEDS: ENOXAPARIN 40 MG/0.4 ML SYG SC SCH (09:04)
[2018-10-14] MEDS: HYDROmorphONE 2 MG TAB PO PRN (12:06)
[2018-10-14 14:49] VITALS: BP 135/80; PULSE 124; RESP 17
--- NOTE | 2018-10-14 17:11 | PN ---
Date/Time of Note Date/Time of Note DATE: 10/14/18 TIME: 17:08 Assessment/Plan VTE Prophylaxis Risk score (from Nsg)>0 risk: 2 SCD applied (from Nsg): Yes Pharmacological prophylaxis: LMWH Lines/Catheters IV Catheter Type (from Nrsg): Saline Lock Assessment/Plan Hospital Course SUBJECTIVE: Denies any pain. Remains tachycardic. OBJECTIVE: Physical Exam General: Adequately build 33 year-old male lying in bed in no apparent distress. HEENT: Normocephalic, atraumatic. Eyes: Anicteric sclerae, conjunctivae clear. ENT: Nasal septum midline, oral mucosa moist. Neck supple, no JVD noticed. Respiratory: Bilaterally clear breath sounds. No use of accessory muscles of respiration. No adventitious breath sounds. Cardiovascular: S1, S2 heard. No murmurs or gallops. Abdomen: Soft, nontender, and nondistended. Bowel sounds positive in all 4 quadrants. Genitourinary: Deferred. Extremities: No cyanosis, no clubbing, no edema. Peripheral pulses palpable. Neurologic: Cranial nerves II through XII grossly intact. The patient is awake, alert, and oriented. Skin: Normal skin turgor. No skin rashes. Labs & Vitals per chart ASSESSMENT & PLAN 33-year-old male with comorbidities including obesity, hypertension, and metastatic testicular seminoma, who came to the emergency room with a chief complaint of fevers and cough. The patient was noticed to have leukocytosis, tachycardia, and febrile illness. Chest x-ray was showing left basilar infiltrate with a small left pleural effusion. The patient was admitted to inpatient setting for further treatment and evaluation. 1. Sepsis with leukocytosis, tachycardia, and febrile illness, present on admission secondary to community-acquired pneumonia -Continue antimicrobials -Pancultures negative so far. 2. Community-acquired pneumonia -Continue empiric antimicrobials. 3. Microcytic hypochromic anemia. -Etiology unclear. -Iron panel showing iron deficiency. -Status post PRBC transfusion overnight. -Start iron supplements. 4. Acute kidney injury. -Nonoliguric. -Resolved. -Most probably secondary to underlying sepsis. 5. Prediabetes -Hemoglobin A1c 6.0. Glycemic trends. 6. Obesity. -BMI more than 31 kg/m. -Advised weight reduction. 7. History of metastatic seminoma. -Being followed at oncology at [facility]. -The patient's oncologist aware of the patient's admission to the hospital. 8. Fluids, electrolytes, and nutrition. -Low-cholesterol diet. 9. DVT prophylaxis. -Subcutaneous Lovenox (hold because of anemia). 10. Plan. -Continue antimicrobials. -Obtain ID consult. The patient was seen in collaboration with Dr. Chester. Result Diagram: 10/14/18 0457 10/14/18 0457 Results 24hrs Laboratory Tests Test 10/14/18 04:56 10/14/18 04:57 10/14/18 07:51 Iron Level 11 L Total Iron Binding Capacity 176 L Percent Iron Saturation 6 L Ferritin 1060.0 H White Blood Count 15.8 H Red Blood Count 3.00 L Hemoglobin 6.9 *L Hematocrit 21.6 L Mean Corpuscular Volume 72.0 L Mean Corpuscular Hemoglobin 23.0 L Mean Corpuscular Hemoglobin Concent 31.9 L Red Cell Distribution Width 16.6 H Platelet Count 459 H Mean Platelet Volume 8.9 Immature Granulocytes % 0.800 H Neutrophils % 77.5 H Lymphocytes % 10.4 L Monocytes % 11.0 Eosinophils % 0.1 Basophils % 0.2 Nucleated Red Blood Cells % 0.0 Immature Granulocytes # 0.120 H Neutrophils # 12.3 H Lymphocytes # 1.6 Monocytes # 1.7 H Eosinophils # 0.0 Basophils # 0.0 Nucleated Red Blood Cells # 0.0 Sodium Level 136 Potassium Level 3.4 L Chloride Level 105 Carbon Dioxide Level 23 Anion Gap 8 Blood Urea Nitrogen 12 Creatinine 1.08 Est Glomerular Filtrat Rate mL/min > 60 Glucose Level 96 Calcium Level 8.2 L Phosphorus Level 3.4 Magnesium Level 1.8 Total Bilirubin 0.3 Direct Bilirubin 0.00 Indirect Bilirubin 0.3 Aspartate Amino Transf (AST/SGOT) 38 Alanine Aminotransferase (ALT/SGPT) 23 Alkaline Phosphatase 585 H Total Protein 7.5 Albumin 2.9 L Globulin 4.60 H Albumin/Globulin Ratio 0.63 Vancomycin Level Trough 14.8 Exam/Review of Systems Exam Vitals Vital Signs Date Temp Pulse Resp B/P (MAP) Pulse Ox O2 O2 Flow FiO2 Time Delivery Rate 10/14/18 98.9 124 17 135/80 97 Room Air 14:49 (98) Intake and Output 10/13/18 10/13/18 10/14/18 1515:00 23:00 07:00 IntakeIntake Total 990 ml 770 ml 1400 ml OutputOutput Total 500 ml BalanceBalance 490 ml 770 ml 1400 ml Results Results 24hrs Laboratory Tests Test 10/14/18 04:56 10/14/18 04:57 10/14/18 07:51 Iron Level 11 L Total Iron Binding Capacity 176 L Percent Iron Saturation 6 L Ferritin 1060.0 H White Blood Count 15.8 H Red Blood Count 3.00 L Hemoglobin 6.9 *L Hematocrit 21.6 L Mean Corpuscular Volume 72.0 L Mean Corpuscular Hemoglobin 23.0 L Mean Corpuscular Hemoglobin Concent 31.9 L Red Cell Distribution Width 16.6 H Platelet Count 459 H Mean Platelet Volume 8.9 Immature Granulocytes % 0.800 H Neutrophils % 77.5 H Lymphocytes % 10.4 L Monocytes % 11.0 Eosinophils % 0.1 Basophils % 0.2 Nucleated Red Blood Cells % 0.0 Immature Granulocytes # 0.120 H Neutrophils # 12.3 H Lymphocytes # 1.6 Monocytes # 1.7 H Eosinophils # 0.0 Basophils # 0.0 Nucleated Red Blood Cells # 0.0 Sodium Level 136 Potassium Level 3.4 L Chloride Level 105 Carbon Dioxide Level 23 Anion Gap 8 Blood Urea Nitrogen 12 Creatinine 1.08 Est Glomerular Filtrat Rate mL/min > 60 Glucose Level 96 Calcium Level 8.2 L Phosphorus Level 3.4 Magnesium Level 1.8 Total Bilirubin 0.3 Direct Bilirubin 0.00 Indirect Bilirubin 0.3 Aspartate Amino Transf (AST/SGOT) 38 Alanine Aminotransferase (ALT/SGPT) 23 Alkaline Phosphatase 585 H Total Protein 7.5 Albumin 2.9 L Globulin 4.60 H Albumin/Globulin Ratio 0.63 Vancomycin Level Trough 14.8 Medications Medication Current Medications Amlodipine Besylate (Norvasc) 5 mg DAILY PO Last administered on 10/14/18at 09:03; Admin Dose 5 MG; Start 10/13/18 at 09:00 Acetaminophen/ Hydrocodone Bitart ([place] (5/325)) 1 tab Q6H PRN PO PAIN; Start 10/12/18 at 22:30 Metoprolol Succinate (Toprol Xl) 50 mg DAILY PO Last administered on 10/14/18at 09:02; Admin Dose 50 MG; Start 10/13/18 at 09:00 IV Flush (NS 3 ml) 3 ml PER PROTOCOL IV ; Start 10/12/18 at 22:30 Ondansetron HCl (Zofran Inj) 4 mg Q6H PRN IV NAUSEA/VOMITING; Start 10/12/18 at 22:30 Acetaminophen (Tylenol Tab) 650 mg Q6H PRN PO .PAIN 1-3 OR TEMP Last administered on 10/14/18 09:34; Admin Dose 650 MG; Start 10/12/18 at 22:30 Docusate Sodium (Colace) 100 mg Q12H PRN PO .CONSTIPATION; Start 10/12/18 at 22:30 Bisacodyl (Dulcolax) 5 mg DAILY PRN PO .CONSTIPATION; Start 10/12/18 at 22:30 Enoxaparin Sodium (Lovenox) 40 mg DAILY SC Last administered on 10/14/18 09:04; Admin Dose 40 MG; Start 10/13/18 at 09:00 Docusate Sodium (Colace) 100 mg BID PO ; Start 10/13/18 at 02:30 Polyethylene Glycol (Miralax) 17 gm DAILY PO ; Start 10/13/18 at 02:30 Vancomycin HCl (Vanco Iv Per Pharmacy) VANCOMYCIN PER PHARMACY PER PROTOCOL XX ; Start 10/13/18 at 06:00 Vancomycin HCl 250 ml @ 125 mls/hr Q8H IVPB Last administered on 10/14/18 09:07; Admin Dose 125 MLS/HR; Start 10/13/18 at 09:00 Simethicone (Mylicon) 80 mg QID PRN PO DISTENSION/GAS/BLOATING Last administered on 10/13/18 16:18; Admin Dose 80 MG; Start 10/13/18 at 16:00 Meropenem/Sodium Chloride 50 ml @ 100 mls/hr Q8 IVPB Last administered on 10/14/18 05:36; Admin Dose 100 MLS/HR; Start 10/14/18 at 06:00 Hydromorphone HCl (Dilaudid) 1 mg Q4H PRN IV SEVERE PAIN LEVEL 7-10 Last administered on 10/14/18at 15:41; Admin Dose 1 MG; Start 10/14/18 at 12:30 DARRYL VIVEROS NP Oct 14, 2018 17:11
[2018-10-14] MEDS ORDERED: POTASSIUM CHLORIDE (SR) 10 MEQ TAB PO ONE (17:30)
[2018-10-14] MEDS ORDERED: SOD FERRIC GLUC COMPLX 125 MG in SOD CHLORIDE 0.9% 100 ML IVPB ONE (17:30)
[2018-10-14] MEDS ORDERED: IOHEXOL 300MG/ML 150 ML BTL ONE (17:57)
[2018-10-14] MEDS ORDERED: SOD CHLORIDE 0.9% 100 ML ONE (17:57)
[2018-10-14] MEDS ORDERED: BARIUM SULF 2% 450 ML BTL (BERRY SMOOTHIE) PO ONE (18:30)
--- NOTE | 2018-10-14 19:28 | CONS ---
Assessment/Plan Assessment/Plan Assessment/Plan (Daily) 33 yo M with testicular cancer s/p chemotherapy with residual disease who presents with fever, cough, concern for sepsis secondary to underlying pneumonia. # sepsis 2/2 pneumonia - continue broad spectrum antibiotics - follow-up cultures, no growth to date # seminoma s/p chemotherapy - recommend CT chest/abdomen/pelvis with contrast - due to the aggressive nature of his recurrent testicular cancer, recommend urology or surgery consult to obtain tissue biopsy (supraclavicular LN may be easily accessible) so subsequent course of action can be determined in regards to treatment # anemia - receiving blood transfusion - although no overt signs of bleeding, check stool for blood Thank you for allowing me to participate in this patient's care. Please call with further question or concerns. Leidy Owusu M.D. 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 He is on broad spectrum antibiotics for sepsis secondary to possible pneumonia. He is followed by Dr. Abhay Adrian as an outpatient and received 4 cycles of chemotherapy but has residual tumors and rising tumor markers. Required 2u PRBC transfusion for anemia. Constitutional: febrile Eyes: no complaints ENT: no complaints Respiratory: cough Cardiovascular: palpitations Gastrointestinal: other (bloating) Genitourinary: no complaints Musculoskeletal: swelling Skin: no complaints Neurologic: no complaints Endocrine: no complaints Lymphatic: no complaints Psychological: no complaints Immunologic: no complaints Past Medical History Medical History: hypertension Home Meds Active Scripts Hydrocodone/Acetaminophen ([place] 5-325 Tablet) 1 Each Tablet, 1 TAB PO Q6H PRN for PAIN, #20 TAB Prov:KIN BUENO 09/12/18 Amlodipine Besylate* (Norvasc*) 5 Mg Tablet, 5 MG PO DAILY, #60 TAB Prov:HAFSA BARRERA 01/09/18 Metoprolol Succinate* (Toprol XL*) 50 Mg Tab.er.24h, 50 MG PO DAILY, #60 TAB Prov:HAFSA BARRERA 01/09/18 Reported Medications Hydromorphone Hcl* (Dilaudid*) 2 Mg Tablet, 2 MG PO Q3H PRN for PAIN, TAB 10/12/18 Amoxicillin/Potassium Clav (Amox-Clav 875-125 mg Tablet) 875-125 mg Tab, 1 TAB PO BID, #20 TAB 10/12/18 Methyl Salicylate/Menthol (Bengay Greaseless Cream) 57 Gm Cream..g., 57 GM TP 09/12/18 Hydrochlorothiazide* (Hydrochlorothiazide*) 12.5 Mg Tablet, 12.5 MG PO DAILY for 90 Days, #90 09/12/18 Discontinued Reported Medications Ibuprofen* (Ibuprofen*) 600 Mg Tablet, 600 MG PO Q8 PRN for PRN, TAB 01/05/18 Medications Current Medications Amlodipine Besylate (Norvasc) 5 mg DAILY PO Last administered on 10/14/18at 09:03; Admin Dose 5 MG; Start 10/13/18 at 09:00 Acetaminophen/ Hydrocodone Bitart ([place] (5/325)) 1 tab Q6H PRN PO PAIN; Start 10/12/18 at 22:30 Metoprolol Succinate (Toprol Xl) 50 mg DAILY PO Last administered on 10/14/18at 09:02; Admin Dose 50 MG; Start 10/13/18 at 09:00 IV Flush (NS 3 ml) 3 ml PER PROTOCOL IV ; Start 10/12/18 at 22:30 Ondansetron HCl (Zofran Inj) 4 mg Q6H PRN IV NAUSEA/VOMITING; Start 10/12/18 at 22:30 Acetaminophen (Tylenol Tab) 650 mg Q6H PRN PO .PAIN 1-3 OR TEMP Last administered on 10/14/18at 17:10; Admin Dose 650 MG; Start 10/12/18 at 22:30 Docusate Sodium (Colace) 100 mg Q12H PRN PO .CONSTIPATION; Start 10/12/18 at 22:30 Bisacodyl (Dulcolax) 5 mg DAILY PRN PO .CONSTIPATION; Start 10/12/18 at 22:30 Enoxaparin Sodium (Lovenox) 40 mg DAILY SC Last administered on 10/14/18at 09:04; Admin Dose 40 MG; Start 10/13/18 at 09:00; Status Hold Docusate Sodium (Colace) 100 mg BID PO ; Start 10/13/18 at 02:30 Polyethylene Glycol (Miralax) 17 gm DAILY PO ; Start 10/13/18 at 02:30 Vancomycin HCl (Vanco Iv Per Pharmacy) VANCOMYCIN PER PHARMACY PER PROTOCOL XX ; Start 10/13/18 at 06:00 Vancomycin HCl 250 ml @ 125 mls/hr Q8H IVPB Last administered on 10/14/18at 09:07; Admin Dose 125 MLS/HR; Start 10/13/18 at 09:00 Simethicone (Mylicon) 80 mg QID PRN PO DISTENSION/GAS/BLOATING Last administered on 10/13/18at 16:18; Admin Dose 80 MG; Start 10/13/18 at 16:00 Meropenem/Sodium Chloride 50 ml @ 100 mls/hr Q8 IVPB Last administered on 10/14/18at 14:00; Admin Dose 100 MLS/HR; Start 10/14/18 at 06:00 Hydromorphone HCl (Dilaudid) 1 mg Q4H PRN IV SEVERE PAIN LEVEL 7-10 Last administered on 10/14/18at 15:41; Admin Dose 1 MG; Start 10/14/18 at 12:30 Allergies: Coded Allergies: No Known Allergy (Unverified , 10/12/18) Past Surgical History Past Surgical Hx: no surgical history Family History Significant Family History: no pertinent family hx Social History Alcohol Use: none Smoking Status: Never smoker Drug Use: none Exam/Review of Systems Exam Vitals Vital Signs Date Temp Pulse Resp B/P (MAP) Pulse Ox O2 O2 Flow FiO2 Time Delivery Rate 10/14/18 99.8 17:10 10/14/18 124 17 135/80 97 Room Air 14:49 (98) Intake and Output 10/13/18 10/13/18 10/14/18 1515:00 23:00 07:00 IntakeIntake Total 990 ml 770 ml 1400 ml OutputOutput Total 500 ml BalanceBalance 490 ml 770 ml 1400 ml Constitutional: alert, oriented, well developed Psych: no complaints, nl mood/affect Head: normocephalic, atraumatic Eyes: nl conjunctiva, nl sclera ENMT: mucosa pink and moist Neck: supple Respiratory: crackles/rales Cardiovascular: other (tachycardic, regular rhythm) Gastrointestinal: non-tender, distended Musculoskeletal: nl extremities to inspection Extremities: normal pulses Neurological: [employer] II-XII intact Skin: other (diaphoretic) Lymph: other (left supraclavicular lymph node, firm, nontender) Results Result Diagram: 10/14/18 0457 10/14/18 0457 Results 24hrs Laboratory Tests Test 10/14/18 04:56 10/14/18 04:57 10/14/18 07:51 Iron Level 11 L Total Iron Binding Capacity 176 L Percent Iron Saturation 6 L Ferritin 1060.0 H White Blood Count 15.8 H Red Blood Count 3.00 L Hemoglobin 6.9 *L Hematocrit 21.6 L Mean Corpuscular Volume 72.0 L Mean Corpuscular Hemoglobin 23.0 L Mean Corpuscular Hemoglobin Concent 31.9 L Red Cell Distribution Width 16.6 H Platelet Count 459 H Mean Platelet Volume 8.9 Immature Granulocytes % 0.800 H Neutrophils % 77.5 H Lymphocytes % 10.4 L Monocytes % 11.0 Eosinophils % 0.1 Basophils % 0.2 Nucleated Red Blood Cells % 0.0 Immature Granulocytes # 0.120 H Neutrophils # 12.3 H Lymphocytes # 1.6 Monocytes # 1.7 H Eosinophils # 0.0 Basophils # 0.0 Nucleated Red Blood Cells # 0.0 Sodium Level 136 Potassium Level 3.4 L Chloride Level 105 Carbon Dioxide Level 23 Anion Gap 8 Blood Urea Nitrogen 12 Creatinine 1.08 Est Glomerular Filtrat Rate mL/min > 60 Glucose Level 96 Calcium Level 8.2 L Phosphorus Level 3.4 Magnesium Level 1.8 Total Bilirubin 0.3 Direct Bilirubin 0.00 Indirect Bilirubin 0.3 Aspartate Amino Transf (AST/SGOT) 38 Alanine Aminotransferase (ALT/SGPT) 23 Alkaline Phosphatase 585 H Total Protein 7.5 Albumin 2.9 L Globulin 4.60 H Albumin/Globulin Ratio 0.63 Vancomycin Level Trough 14.8 Medications Medication Current Medications Amlodipine Besylate (Norvasc) 5 mg DAILY PO Last administered on 10/14/18at 09:03; Admin Dose 5 MG; Start 10/13/18 at 09:00 Acetaminophen/ Hydrocodone Bitart ([place] (5/325)) 1 tab Q6H PRN PO PAIN; Start 10/12/18 at 22:30 Metoprolol Succinate (Toprol Xl) 50 mg DAILY PO Last administered on 10/14/18 09:02; Admin Dose 50 MG; Start 10/13/18 at 09:00 IV Flush (NS 3 ml) 3 ml PER PROTOCOL IV ; Start 10/12/18 at 22:30 Ondansetron HCl (Zofran Inj) 4 mg Q6H PRN IV NAUSEA/VOMITING; Start 10/12/18 at 22:30 Acetaminophen (Tylenol Tab) 650 mg Q6H PRN PO .PAIN 1-3 OR TEMP Last administered on 10/14/18 17:10; Admin Dose 650 MG; Start 10/12/18 at 22:30 Docusate Sodium (Colace) 100 mg Q12H PRN PO .CONSTIPATION; Start 10/12/18 at 22:30 Bisacodyl (Dulcolax) 5 mg DAILY PRN PO .CONSTIPATION; Start 10/12/18 at 22:30 Enoxaparin Sodium (Lovenox) 40 mg DAILY SC Last administered on 10/14/18 09:04; Admin Dose 40 MG; Start 10/13/18 at 09:00; Status Hold Docusate Sodium (Colace) 100 mg BID PO ; Start 10/13/18 at 02:30 Polyethylene Glycol (Miralax) 17 gm DAILY PO ; Start 10/13/18 at 02:30 Vancomycin HCl (Vanco Iv Per Pharmacy) VANCOMYCIN PER PHARMACY PER PROTOCOL XX ; Start 10/13/18 at 06:00 Vancomycin HCl 250 ml @ 125 mls/hr Q8H IVPB Last administered on 10/14/18 09:07; Admin Dose 125 MLS/HR; Start 10/13/18 at 09:00 Simethicone (Mylicon) 80 mg QID PRN PO DISTENSION/GAS/BLOATING Last administered on 10/13/18 16:18; Admin Dose 80 MG; Start 10/13/18 at 16:00 Meropenem/Sodium Chloride 50 ml @ 100 mls/hr Q8 IVPB Last administered on 10/14/18 14:00; Admin Dose 100 MLS/HR; Start 10/14/18 at 06:00 Hydromorphone HCl (Dilaudid) 1 mg Q4H PRN IV SEVERE PAIN LEVEL 7-10 Last administered on 10/14/18 15:41; Admin Dose 1 MG; Start 10/14/18 at 12:30 LEIDY OWUSU MD Oct 14, 2018 19:26
[2018-10-14 20:00] VITALS: BP 154/89; PULSE 131; RESP 18
--- NOTE | 2018-10-14 23:33 | CONS ---
Assessment/Plan Assessment/Plan Hospital Course (Demo Recall) - sepsis due to pneumonia, HCAP - pneumonia, HCAP in an immunocompromised Pt. CT on 10/05/2018 showed new areas of alveolar consolidation/atelectasis of lower lobe, L>R. There was near complete LLL atelectasis/consolidation, atelectasis of the lingula, subsegmental atelectasis anterior medial RML, minimal passive atelectasis/dependent related change posterior upper lobes, mo suspicious nodules. - dry cough, concerning for viral bronchitis, fungal pneumonia is also considered - immunocompromised status: metastatic testicular CA, s/p chemo - testicular CA with pelvic, perianal, retroperitoneal, perirenal, mediastinal, supraclavicular metastases, recurrent s/p 4 cycles of chemo last given in 04/2018 - daily fever, due to pneumonia but also due to metastatic CA - h/o hydroureter due to testicular CA s/p insertion of L ureteral JJ stent placement in 01/2018 recommendations - ordered: nasopharyngeal swab for influenza RT-PCR (EIA was negative) and for respiratory viruses, urine legionella antigen, procalcitonin, coccidioides serology, cryptococcus antigen, quantiFERON TB gold - continue IV vanc (10/12/2018-) and meropenem (10/14/2018-); add PO doxycycline for atypical coverage, ordered for 5 days; add empiric PO oseltamivir for a high clinical suspicion of influenza bronchitis, ordered for 5 days; and IV voriconazole for empiric antifungal coverage - management d/w Pt and his RN Norma - the critical care time I took to care for this Pt today was from 23:30 to 01:20 Consultation Date/Type/Reason Admit Date/Time Date of Consultation: Oct 14, 2018 Type of Consult ID Reason for Consultation sepsis Requesting Provider: DARRYL NOGUEIRA NP Date/Time of Note DATE: 10/14/18 TIME: 23:33 Hx of Present Illness This is a 33 yo male with testicular cancer with pelvic, perianal, retroperitoneal, perirenal, mediastinal, supraclavicular metastases. Pt has received 4 cycles of chemotherapy, last given in 04/2018, but has residu al/advancing tumors. Pt has been evaluated by a urologist for surgical resection, and has sought a second opinion from another urologist at [facility]. Pt presented at ER for several day h/o dry cough and fever. Pt denied congestion, sore throat, sputum production or dyspnea but endorsed chest tightness. At ER, he was initially afebrile but had a fever spike of 103F. His initial WBC level was 16.2. His CXR showed infiltrate at L base. He was given ceftriaxone and azithromycin at ER, and was admitted. Pt was receiving IV vancomycin and pip/tazo. Pt has had daily fever, last recorded spike 101.2F in the morning of 10/14/2018. His chest CT on 10/05/2018 showed new areas of alveolar consolidation /atelectasis of lower lobe, L>R. There was near complete LLL atelectasis/consolidation, atelectasis of the lingula, subsegmental atelectasis anterior medial RML, minimal passive atelectasis/dependent related change posterior upper lobes, mo suspicious nodules. Chest/abd/pel CT taken at the same time showed new tumors, metastasis, enlarging adenopathy of various organs. Subjectively Pt c/o diffuse myalgia and "cancer pain" affecting his back, for which he takes dilaudid. Pt is originally from [facility] and has lived in [facility] since age 4. He lives at home with his and 4 dogs. He denies recent sick contact or travel. He does not recall if he had anti-influenza vaccine [id number]. He denies exposure to Pt with TB. 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 He denies exposure to excess dusts or fume. DIONE Nogueira requested ID consultation on this Pt. Constitutional: diaphoresis, febrile Eyes: no complaints ENT: no complaints Respiratory: cough, shortness of breath, other (chest tightness); No pain, No pleuritic pain, No sputum, No wheezing Cardiovascular: no complaints Gastrointestinal: other (bloating) Genitourinary: no complaints Musculoskeletal: back pain Skin: no complaints Neurologic: no complaints Lymphatic: adenopathy, tender nodes Past Medical History Medical History: hypertension, other (testicular CA) Home Meds Active Scripts Hydrocodone/Acetaminophen ([place] 5-325 Tablet) 1 Each Tablet, 1 TAB PO Q6H PRN for PAIN, #20 TAB Prov:KIN BUENO 09/12/18 Amlodipine Besylate* (Norvasc*) 5 Mg Tablet, 5 MG PO DAILY, #60 TAB Prov:HAFSA BARRERA 01/09/18 Metoprolol Succinate* (Toprol XL*) 50 Mg Tab.er.24h, 50 MG PO DAILY, #60 TAB Prov:HAFSA BARRERA 01/09/18 Reported Medications Hydromorphone Hcl* (Dilaudid*) 2 Mg Tablet, 2 MG PO Q3H PRN for PAIN, TAB 10/12/18 Amoxicillin/Potassium Clav (Amox-Clav 875-125 mg Tablet) 875-125 mg Tab, 1 TAB PO BID, #20 TAB 10/12/18 Methyl Salicylate/Menthol (Bengay Greaseless Cream) 57 Gm Cream..g., 57 GM TP 09/12/18 Hydrochlorothiazide* (Hydrochlorothiazide*) 12.5 Mg Tablet, 12.5 MG PO DAILY for 90 Days, #90 09/12/18 Discontinued Reported Medications Ibuprofen* (Ibuprofen*) 600 Mg Tablet, 600 MG PO Q8 PRN for PRN, TAB 01/05/18 Medications Current Medications Amlodipine Besylate (Norvasc) 5 mg DAILY PO Last administered on 10/14/18at 09 :03; Admin Dose 5 MG; Start 10/13/18 at 09:00 Acetaminophen/ Hydrocodone Bitart ([place] (5/325)) 1 tab Q6H PRN PO PAIN; Start 10/12/18 at 22:30 Metoprolol Succinate (Toprol Xl) 50 mg DAILY PO Last administered on 10/14/18at 09:02; Admin Dose 50 MG; Start 10/13/18 at 09:00 IV Flush (NS 3 ml) 3 ml PER PROTOCOL IV ; Start 10/12/18 at 22:30 Ondansetron HCl (Zofran Inj) 4 mg Q6H PRN IV NAUSEA/VOMITING; Start 10/12/18 at 22:30 Acetaminophen (Tylenol Tab) 650 mg Q6H PRN PO .PAIN 1-3 OR TEMP Last administe red on 10/14/18at 17:10; Admin Dose 650 MG; Start 10/12/18 at 22:30 Docusate Sodium (Colace) 100 mg Q12H PRN PO .CONSTIPATION; Start 10/12/18 at 22:30 Bisacodyl (Dulcolax) 5 mg DAILY PRN PO .CONSTIPATION; Start 10/12/18 at 22:30 Enoxaparin Sodium (Lovenox) 40 mg DAILY SC Last administered on 10/14/18at 09:04; Admin Dose 40 MG; Start 10/13/18 at 09:00; Status Hold Docusate Sodium (Colace) 100 mg BID PO ; Start 10/13/18 at 02:30 Polyethylene Glycol (Miralax) 17 gm DAILY PO ; Start 10/13/18 at 02:30 Vancomycin HCl (Vanco Iv Per Pharmacy) VANCOMYCIN PER PHARMACY PER PROTOCOL XX ; Start 10/13/18 at 06:00 Simethicone (Mylicon) 80 mg QID PRN PO DISTENSION/GAS/BLOATING Last administered on 10/13/18at 16:18; Admin Dose 80 MG; Start 10/13/18 at 16:00 Meropenem/Sodium Chloride 50 ml @ 100 mls/hr Q8 IVPB Last administered on 10/14/18at 14:00; Admin Dose 100 MLS/HR; Start 10/14/18 at 06:00 Hydromorphone HCl (Dilaudid) 1 mg Q4H PRN IV SEVERE PAIN LEVEL 7-10 Last administered on 10/14/18at 20:37; Admin Dose 1 MG; Start 10/14/18 at 12:30 Vancomycin HCl 250 ml @ 125 mls/hr Q8H IVPB Last administered on 10/14/18at 21:57; Admin Dose 125 MLS/HR; Start 10/14/18 at 22:00 Allergies: Coded Allergies: No Known Allergy (Unverified , 10/12/18) Past Surgical History Past Surgical Hx: other (s/p placement of L ureteral JJ stent in 01/2018) Social History Pt is originally from [facility] and has lived in [facility] since age 4. He lives at home with his and 4 dogs. He denies recent sick contact or travel. He does not recall if he had anti-influenza vaccine [id number]. He denies exposure to Pt with TB. 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 He denies exposure to excess dusts or fume. Alcohol Use: none Smoking Status: Never smoker Drug Use: none Exam/Review of Systems Exam Vitals Vital Signs Date Temp Pulse Resp B/P (MAP) Pulse Ox O2 O2 Flow FiO2 Time Delivery Rate 10/14/18 99.3 131 18 154/89 97 20:00 (110) 3/10/19 Room Air 14:49 Intake and Output 10/13/18 10/13/18 10/14/18 1515:00 23:00 07:00 IntakeIntake Total 990 ml 770 ml 1400 ml OutputOutput Total 500 ml BalanceBalance 490 ml 770 ml 1400 ml Constitutional: alert, oriented, well developed, other (constantly coughing) Psych: no complaints, nl mood/affect Head: normocephalic, atraumatic Eyes: nl conjunctiva, EOMI, nl lids, nl sclera ENMT: nl external ears & nose, nl lips & teeth, mucosa pink and moist Neck: supple, other (+cervical RODOLFO) Respiratory: clear to auscultation, normal air movement Cardiovascular: regular rate and rhythm, nl pulses Gastrointestinal: soft, nl liver, spleen, non-tender; No distended Musculoskeletal: nl extremities to inspection Extremities: No edema Neurological: 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 intact, nl mental status, nl speech, nl strength Skin: nl turgor; No rash or lesions Results Result Diagram: 10/14/18 0457 10/14/18 0457 Results 24hrs Laboratory Tests Test 10/14/18 04:56 10/14/18 04:57 10/14/18 07:51 10/14/18 23:06 Iron Level 11 L Total Iron Binding 176 L Capacity Percent Iron 6 L Saturation Ferritin 1060.0 H White Blood Count 15.8 H Pending Red Blood Count 3.00 L Pending Hemoglobin 6.9 *L Pending Hematocrit 21.6 L Pending Mean Corpuscular 72.0 L Pending Volume Mean Corpuscular 23.0 L Pending Hemoglobin Mean Corpuscular 31.9 L Pending Hemoglobin Concent Red Cell 16.6 H Pending Distribution Width Platelet Count 459 H Pending Mean Platelet Volume 8.9 Pending Immature 0.800 H Granulocytes % Neutrophils % 77.5 H Lymphocytes % 10.4 L Monocytes % 11.0 Eosinophils % 0.1 Basophils % 0.2 Nucleated Red Blood 0.0 Cells % Immature 0.120 H Granulocytes # Neutrophils # 12.3 H Lymphocytes # 1.6 Monocytes # 1.7 H Eosinophils # 0.0 Basophils # 0.0 Nucleated Red Blood 0.0 Cells # Sodium Level 136 Potassium Level 3.4 L Chloride Level 105 Carbon Dioxide Level 23 Anion Gap 8 Blood Urea Nitrogen 12 Creatinine 1.08 Est Glomerular > 60 Filtrat Rate mL/min Glucose Level 96 Calcium Level 8.2 L Phosphorus Level 3.4 Magnesium Level 1.8 Total Bilirubin 0.3 Direct Bilirubin 0.00 Indirect Bilirubin 0.3 Aspartate Amino 38 Transf (AST/SGOT) Alanine 23 Aminotransferase (AL T/SGPT) Alkaline Phosphatase 585 H Total Protein 7.5 Albumin 2.9 L Globulin 4.60 H Albumin/Globulin 0.63 Ratio Vancomycin Level 14.8 Trough Medications Medication Current Medications Amlodipine Besylate (Norvasc) 5 mg DAILY PO Last administered on 10/14/18at 09:03; Admin Dose 5 MG; Start 10/13/18 at 09:00 Acetaminophen/ Hydrocodone Bitart ([place] (5/325)) 1 tab Q6H PRN PO PAIN; Start 10/12/18 at 22:30 Metoprolol Succinate (Toprol Xl) 50 mg DAILY PO Last administered on 10/14/18at 09:02; Admin Dose 50 MG; Start 10/13/18 at 09:00 IV Flush (NS 3 ml) 3 ml PER PROTOCOL IV ; Start 10/12/18 at 22:30 Ondansetron HCl (Zofran Inj) 4 mg Q6H PRN IV NAUSEA/VOMITING; Start 10/12/18 at 22:30 Acetaminophen (Tylenol Tab) 650 mg Q6H PRN PO .PAIN 1-3 OR TEMP Last administered on 10/14/18at 17:10; Admin Dose 650 MG; Start 10/12/18 at 22:30 Docusate Sodium (Colace) 100 mg Q12H PRN PO .CONSTIPATION; Start 10/12/18 at 22:30 Bisacodyl (Dulcolax) 5 mg DAILY PRN PO .CONSTIPATION; Start 10/12/18 at 22:30 Enoxaparin Sodium (Lovenox) 40 mg DAILY SC Last administered on 10/14/18at 09:04; Admin Dose 40 MG; Start 10/13/18 at 09:00; Status Hold Docusate Sodium (Colace) 100 mg BID PO ; Start 10/13/18 at 02:30 Polyethylene Glycol (Miralax) 17 gm DAILY PO ; Start 10/13/18 at 02:30 Vancomycin HCl (Vanco Iv Per Pharmacy) VANCOMYCIN PER PHARMACY PER PROTOCOL XX ; Start 10/13/18 at 06:00 Simethicone (Mylicon) 80 mg QID PRN PO DISTENSION/GAS/BLOATING Last administered on 10/13/18at 16:18; Admin Dose 80 MG; Start 10/13/18 at 16:00 Meropenem/Sodium Chloride 50 ml @ 100 mls/hr Q8 IVPB Last administered on 10/14/18at 14:00; Admin Dose 100 MLS/HR; Start 10/14/18 at 06:00 Hydromorphone HCl (Dilaudid) 1 mg Q4H PRN IV SEVERE PAIN LEVEL 7-10 Last administered on 10/14/18at 20:37; Admin Dose 1 MG; Start 10/14/18 at 12:30 Vancomycin HCl 250 ml @ 125 mls/hr Q8H IVPB Last administered on 10/14/18at 21:57; Admin Dose 125 MLS/HR; Start 10/14/18 at 22:00 RUSTAM BOWDEN M.D. Oct 14, 2018 23:33
[2018-10-15] VITALS (7 sets, daily range): BP systolic 123–145; BP diastolic 60–89; PULSE 123–152; RESP 17–19
[2018-10-15] MEDS: MEROPENEM 1 GM/50ML(PMX) 50 ML IVPB SCH ×3 (00:18→21:58)
[2018-10-15] MEDS: HYDROmorphONE 1 MG/ML SYG IV PRN ×6 (00:40→21:58)
[2018-10-15] MEDS ORDERED: MAGNESIUM SULFATE 2 GM/50 ML 50 ML IVPB ONE (02:30)
[2018-10-15] MEDS: VORICONAZOLE IVPB SCH ×2 (04:53→23:16)
[2018-10-15] MEDS: SOD CHLORIDE 0.9% IVPB SCH ×2 (04:53→23:16)
[2018-10-15] MEDS ORDERED: POTASSIUM CHLORIDE (SR) 20 MEQ TAB PO SCH (08:00)
[2018-10-15] MEDS: METOPROLOL (XL) 50 MG TAB PO SCH (08:53)
[2018-10-15] MEDS: OSELTAMIVIR 75 MG CAP PO SCH ×2 (08:54→20:17)
[2018-10-15] MEDS: AMLODIPINE 5 MG TAB PO SCH (08:54)
[2018-10-15] MEDS: DOCUSATE SODIUM 100 MG CAP PO SCH ×2 (08:54→20:17)
[2018-10-15] MEDS: POLYETHYLENE GLYCOL 17 GM PACKET PO SCH (08:54)
[2018-10-15] MEDS: DOXYCYCLINE 100 MG TAB PO SCH ×2 (08:54→20:17)
[2018-10-15] MEDS: VANCOMYCIN 1 GM 250 ML IVPB SCH ×2 (10:57→19:51)
--- NOTE | 2018-10-15 11:50 | CONS ---
Assessment/Plan Assessment/Plan Hospital Course (Demo Recall) - sepsis due to pneumonia, HCAP - pneumonia, HCAP in an immunocompromised Pt. CT on 10/05/2018 showed new areas of alveolar consolidation/atelectasis of lower lobe, L>R. There was near complete LLL atelectasis/consolidation, atelectasis of the lingula, subsegmental atelectasis anterior medial RML, minimal passive atelectasis/dependent related change posterior upper lobes, mo suspicious nodules. - dry cough, concerning for viral bronchitis, fungal pneumonia is also considered - immunocompromised status: metastatic testicular CA, s/p chemo - testicular CA with pelvic, perianal, retroperitoneal, perirenal, mediastinal, supraclavicular metastases, recurrent s/p 4 cycles of chemo last given in 04/2018 - daily fever, due to pneumonia but also due to metastatic CA - h/o hydroureter due to testicular CA s/p insertion of L ureteral JJ stent placement in 01/2018 Recommendations: - Pending: nasopharyngeal swab for influenza RT-PCR (EIA was negative) and for respiratory viruses, urine legionella antigen, procalcitonin (ordered for am), coccidioides serology, cryptococcus antigen, quantiFERON TB gold - Continue IV vanc (10/12/2018-), meropenem (10/14/2018-); - Continue PO doxycycline for atypical coverage, ordered for 5 days; empiric PO oseltamivir for a high clinical suspicion of influenza bronchitis, ordered for 5 days; and IV voriconazole for empiric antifungal coverage Management d/w patient, his family at bedside, JAMES HART, and with Dr. Gilliland. Thank you Consultation Date/Type/Reason Admit Date/Time Oct 12, 2018 at 21:37 Initial Consult Date 10/14/18 Type of Consult ID Requesting Provider: DARRYL VIVEROS NP Date/Time of Note DATE: 10/15/18 TIME: 11:43 24 HR Interval Summary Free Text/Dictation Patient states that today he has felt better than since admission. He reports occasional sob that occurs intermittently "randomly" which causes him to have to catch his breath. States no phlegm but has a cough. Denies feeling of fevers, chills, or sweats today. Denies n/v/d, dysuria, pruritis, rash. States his pain is at baseline. he is afebrile. WBC 14.4. D/w RN TANNER. Influenza RT-PCR and legionella still show as active and not in process on order screen, I asked the nurse to please send these today if they haven't already been sent and to contact the laboratory to acquire the appropriate swab for the Influenza exam. Exam/Review of Systems Exam Vitals Vital Signs Date Temp Pulse Resp B/P (MAP) Pulse Ox O2 O2 Flow FiO2 Time Delivery Rate 10/15/18 98.4 130 17 137/86 92 Room Air 07:51 (103) Intake and Output 10/14/18 10/14/18 10/15/18 1414:59 22:59 06:59 IntakeIntake Total 300 ml 1450 ml BalanceBalance 300 ml 1450 ml Allergies Coded Allergies No Known Allergy (Unverified10/12/18) Constitutional: alert, oriented, well developed Psych: no complaints, nl mood/affect Head: normocephalic, atraumatic Eyes: nl conjunctiva, nl lids, nl sclera ENMT: nl external ears & nose, nl nasal mucosa & septum, mucosa pink and moist Neck: supple, other (+ cervical lymphadenopathy) Respiratory: clear to auscultation, normal air movement, diminished breath sounds (bibasillarly), other (intermittent cough during exam) Cardiovascular: regular rate and rhythm, nl pulses Gastrointestinal: soft, non-tender, bowel sounds (normoactive ) Musculoskeletal: nl extremities to inspection Extremities: normal pulses; No edema Neurological: [employer] II-XII intact, nl mental status, nl speech, nl strength Skin: nl turgor; No rash or lesions Results Result Diagram: 10/15/18 1041 10/15/18 0509 Results 24hrs Laboratory Tests Test 10/14/18 23:06 10/15/18 05:09 10/15/18 10:41 White Blood Count 15.6 H 14.4 H Red Blood Count 3.75 #L 3.70 L Hemoglobin 8.6 #L 8.5 L 8.3 L Hematocrit 27.5 #L 27.1 L 26.3 L Mean Corpuscular Volume 73.3 L 73.2 L Mean Corpuscular Hemoglobin 22.9 L 23.0 L Mean Corpuscular Hemoglobin Concent 31.3 L 31.4 L Red Cell Distribution Width 18.3 H 18.2 H Platelet Count 536 H 556 H Mean Platelet Volume 8.3 8.8 Immature Granulocytes % 0.700 H 0.800 H Neutrophils % 81.5 H 79.5 H Lymphocytes % 9.5 L 11.3 L Monocytes % 8.0 8.0 Eosinophils % 0.2 0.1 Basophils % 0.1 0.3 Nucleated Red Blood Cells % 0.0 0.0 Immature Granulocytes # 0.110 H 0.110 H Neutrophils # 12.7 H 11.5 H Lymphocytes # 1.5 1.6 Monocytes # 1.3 H 1.2 H Eosinophils # 0.0 0.0 Basophils # 0.0 0.0 Nucleated Red Blood Cells # 0.0 0.0 Absolute Reticulocyte Count 0.033 Percent Reticulocyte Count 0.9 Sodium Level 138 Potassium Level 3.9 Chloride Level 103 Carbon Dioxide Level 24 Anion Gap 11 Blood Urea Nitrogen 8 Creatinine 0.81 Est Glomerular Filtrat Rate mL/min > 60 Glucose Level 93 Calcium Level 9.0 Phosphorus Level 3.5 Magnesium Level 2.5 Total Bilirubin 0.4 Direct Bilirubin 0.00 Indirect Bilirubin 0.4 Aspartate Amino Transf (AST/SGOT) 35 Alanine Aminotransferase (ALT/SGPT) 16 Alkaline Phosphatase 541 H B-Type Natriuretic Peptide 186 H Total Protein 8.0 Albumin 3.2 L Globulin 4.80 H Albumin/Globulin Ratio 0.[address] Chest 10/14/18 IMPRESSION: 1. Enlarging left supraclavicular fossa adenopathy from 09/12/2018. 2. Sub centimeter, but enlarging superior mediastinal lymph nodes. 3. Enlarging distal para esophageal adenopathy. Enlarging adenopathy posterior to the descending thoracic aorta. 4. New bilateral pleural effusions with near complete atelectasis of the left lower lobe, subsegmental atelectasis involving the right lower lobe and lingula. 5. New multiple hepatic metastatic disease. 6. Mixed response of retroperitoneal and intraperitoneal adenopathy from 2018. Overall, disease has slightly increased. 7. New tumor invasion involving the left kidney with left internal renal stent in place. 8. Mild to moderate pelvic ascites, new. This could be metastatic ascites is that surrounds attenuating portion of the distal sigmoid colon. 9. Mass effect on the IVC due to adenopathy. Intraluminal extension is not excluded. CT Neck 10/14/18 IMPRESSION: 1. Metastatic left level 5 and left supraclavicular fossa adenopathy with areas of inessa necrosis. CXR 10/12/18 IMPRESSION: Patchy left basilar infiltrate with a small left pleural effusion. Continued follow-up until resolution is suggested. Medications Medication Current Medications Amlodipine Besylate (Norvasc) 5 mg DAILY PO Last administered on 10/15/18 08:54; Admin Dose 5 MG; Start 10/13/18 at 09:00 Acetaminophen/ Hydrocodone Bitart ([place] (5/325)) 1 tab Q6H PRN PO PAIN; Start 10/12/18 at 22:30 Metoprolol Succinate (Toprol Xl) 50 mg DAILY PO Last administered on 10/15/18 08:53; Admin Dose 50 MG; Start 10/13/18 at 09:00 IV Flush (NS 3 ml) 3 ml PER PROTOCOL IV ; Start 10/12/18 at 22:30 Ondansetron HCl (Zofran Inj) 4 mg Q6H PRN IV NAUSEA/VOMITING; Start 10/12/18 at 22:30 Acetaminophen (Tylenol Tab) 650 mg Q6H PRN PO .PAIN 1-3 OR TEMP Last ad ministered on 10/14/18at 17:10; Admin Dose 650 MG; Start 10/12/18 at 22:30 Docusate Sodium (Colace) 100 mg Q12H PRN PO .CONSTIPATION; Start 10/12/18 at 22:30 Bisacodyl (Dulcolax) 5 mg DAILY PRN PO .CONSTIPATION; Start 10/12/18 at 22:30 Enoxaparin Sodium (Lovenox) 40 mg DAILY SC Last administered on 10/14/18at 09:04; Admin Dose 40 MG; Start 10/13/18 at 09:00; Status Hold Docusate Sodium (Colace) 100 mg BID PO ; Start 10/13/18 at 02:30 Polyethylene Glycol (Miralax) 17 gm DAILY PO ; Start 10/13/18 at 02:30 Vancomycin HCl (Vanco Iv Per Pharmacy) VANCOMYCIN PER PHARMACY PER PROTOCOL XX ; Start 10/13/18 at 06:00 Simethicone (Mylicon) 80 mg QID PRN PO DISTENSION/GAS/BLOATING Last administered on 10/13/18at 16:18; Admin Dose 80 MG; Start 10/13/18 at 16:00 Meropenem/Sodium Chloride 50 ml @ 100 mls/hr Q8 IVPB Last administered on 10/15/18at 10:13; Admin Dose 100 MLS/HR; Start 10/14/18 at 06:00 Hydromorphone HCl (Dilaudid) 1 mg Q4H PRN IV SEVERE PAIN LEVEL 7-10 Last administered on 10/15/18at 08:55; Admin Dose 1 MG; Start 10/14/18 at 12:30 Vancomycin HCl 250 ml @ 125 mls/hr Q8H IVPB Last administered on 10/15/18at 10:57; Admin Dose 125 MLS/HR; Start 10/14/18 at 22:00 Oseltamivir Phosphate (Tamiflu) 75 mg BID PO Last administered on 10/15/18at 08:54; Admin Dose 75 MG; Start 10/15/18 at 09:00; Stop 10/20/18 at 08:59 Doxycycline Hyclate (Vibramycin) 100 mg BID PO Last administered on 10/15/18at 0 8:54; Admin Dose 100 MG; Start 10/15/18 at 09:00; Stop 10/20/18 at 08:59 Voriconazole 500 mg/Sodium Chloride 250 ml @ 62.5 mls/hr Q12 IVPB Last administered on 10/15/18at 04:53; Admin Dose 62.5 MLS/HR; Start 10/15/18 at 03:00; Stop 10/15/18 at 23:59 Voriconazole 350 mg/Sodium Chloride 150 ml @ 50 mls/hr Q12 IVPB ; Start 10/16/18 at 09:00 TERESA HELLER NP Oct 15, 2018 11:50
--- NOTE | 2018-10-15 17:14 | PN ---
Date/Time of Note Date/Time of Note DATE: 10/15/18 TIME: 17:07 Assessment/Plan VTE Prophylaxis Risk score (from Nsg)>0 risk: 4 SCD applied (from Ns): Yes Pharmacological prophylaxis: heparin Lines/Catheters IV Catheter Type (from Nrsg): Saline Lock Assessment/Plan Hospital Course S: feels better than when he came in , still coughing however. family also at bedside O: Constitutional: alert, oriented, no distress Head: atraumatic, normocephalic Neck: non-tender, supple, palpable and visible lymphadenopathy L >>R Respiratory: clear to auscultation, diminished with occ exp wheezing Cardiovascular: tachycardia Gastrointestinal: S/ NT /mildly distended / +BS Extremities: no edema, good radial pulses assessment and plan: 33 yo M with history of pure seminoma with pelvic, perianal, retroperitoneal, perirenal, mediastinal, supraclavicular metastases who presented with fevers, cough and tachycardia. He is being admitted for sepsis 2/2 Pneumonia. He is currently managed as follows : 1. Sepsis likely 2/2 bilateral pneumonia (HCAP) -ID managing abx 2. 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 -Patient also with malignant pleural effusion with associated lung collapse and malignant ascites (not tense) -appreciate oncology review and recs -will get pulm consult as well -paracentesis? 3. severe iron deficiency anemia -likely 2/2 metastatic cancer, s/p 2 units PRBC 4. Tachycardia -likely 2/2 sepsis -tele transfer for monitoring -echo 5. s/p TAMARA -likely prerenal from anemia, improved 6. chronic HTN -controlled on current meds -titrate as indicated dispo: -tele transfer when bed available for closer monitoring of HR -await surgical plan -continue abx per ID -needs to be at least 24hr fever free before considering discharge, other plans as above -continue supportive care . Result Diagram: 10/15/18 1041 10/15/18 0509 Results 24hrs Laboratory Tests Test 10/14/18 23:06 10/15/18 05:09 10/15/18 10:41 White Blood Count 15.6 H 14.4 H Red Blood Count 3.75 #L 3.70 L Hemoglobin 8.6 #L 8.5 L 8.3 L Hematocrit 27.5 #L 27.1 L 26.3 L Mean Corpuscular Volume 73.3 L 73.2 L Mean Corpuscular Hemoglobin 22.9 L 23.0 L Mean Corpuscular Hemoglobin Concent 31.3 L 31.4 L Red Cell Distribution Width 18.3 H 18.2 H Platelet Count 536 H 556 H Mean Platelet Volume 8.3 8.8 Immature Granulocytes % 0.700 H 0.800 H Neutrophils % 81.5 H 79.5 H Lymphocytes % 9.5 L 11.3 L Monocytes % 8.0 8.0 Eosinophils % 0.2 0.1 Basophils % 0.1 0.3 Nucleated Red Blood Cells % 0.0 0.0 Immature Granulocytes # 0.110 H 0.110 H Neutrophils # 12.7 H 11.5 H Lymphocytes # 1.5 1.6 Monocytes # 1.3 H 1.2 H Eosinophils # 0.0 0.0 Basophils # 0.0 0.0 Nucleated Red Blood Cells # 0.0 0.0 Absolute Reticulocyte Count 0.033 Percent Reticulocyte Count 0.9 Sodium Level 138 Potassium Level 3.9 Chloride Level 103 Carbon Dioxide Level 24 Anion Gap 11 Blood Urea Nitrogen 8 Creatinine 0.81 Est Glomerular Filtrat Rate mL/min > 60 Glucose Level 93 Calcium Level 9.0 Phosphorus Level 3.5 Magnesium Level 2.5 Total Bilirubin 0.4 Direct Bilirubin 0.00 Indirect Bilirubin 0.4 Aspartate Amino Transf (AST/SGOT) 35 Alanine Aminotransferase (ALT/SGPT) 16 Alkaline Phosphatase 541 H B-Type Natriuretic Peptide 186 H Total Protein 8.0 Albumin 3.2 L Globulin 4.80 H Albumin/Globulin Ratio 0.66 Exam/Review of Systems Exam Vitals Vital Signs Date Temp Pulse Resp B/P (MAP) Pulse Ox O2 O2 Flow FiO2 Time Delivery Rate 10/15/18 98.5 123 17 134/85 96 Room Air 15:28 (101) Intake and Output 10/14/18 10/14/18 10/15/18 1515:00 23:00 07:00 IntakeIntake Total 300 ml 1450 ml BalanceBalance 300 ml 1450 ml Results Results 24hrs Laboratory Tests Test 10/14/18 23:06 10/15/18 05:09 10/15/18 10:41 White Blood Count 15.6 H 14.4 H Red Blood Count 3.75 #L 3.70 L Hemoglobin 8.6 #L 8.5 L 8.3 L Hematocrit 27.5 #L 27.1 L 26.3 L Mean Corpuscular Volume 73.3 L 73.2 L Mean Corpuscular Hemoglobin 22.9 L 23.0 L Mean Corpuscular Hemoglobin Concent 31.3 L 31.4 L Red Cell Distribution Width 18.3 H 18.2 H Platelet Count 536 H 556 H Mean Platelet Volume 8.3 8.8 Immature Granulocytes % 0.700 H 0.800 H Neutrophils % 81.5 H 79.5 H Lymphocytes % 9.5 L 11.3 L Monocytes % 8.0 8.0 Eosinophils % 0.2 0.1 Basophils % 0.1 0.3 Nucleated Red Blood Cells % 0.0 0.0 Immature Granulocytes # 0.110 H 0.110 H Neutrophils # 12.7 H 11.5 H Lymphocytes # 1.5 1.6 Monocytes # 1.3 H 1.2 H Eosinophils # 0.0 0.0 Basophils # 0.0 0.0 Nucleated Red Blood Cells # 0.0 0.0 Absolute Reticulocyte Count 0.033 Percent Reticulocyte Count 0.9 Sodium Level 138 Potassium Level 3.9 Chloride Level 103 Carbon Dioxide Level 24 Anion Gap 11 Blood Urea Nitrogen 8 Creatinine 0.81 Est Glomerular Filtrat Rate mL/min > 60 Glucose Level 93 Calcium Level 9.0 Phosphorus Level 3.5 Magnesium Level 2.5 Total Bilirubin 0.4 Direct Bilirubin 0.00 Indirect Bilirubin 0.4 Aspartate Amino Transf (AST/SGOT) 35 Alanine Aminotransferase (ALT/SGPT) 16 Alkaline Phosphatase 541 H B-Type Natriuretic Peptide 186 H Total Protein 8.0 Albumin 3.2 L Globulin 4.80 H Albumin/Globulin Ratio 0.66 Medications Medication Current Medications Amlodipine Besylate (Norvasc) 5 mg DAILY PO Last administered on 10/15/18at 08:54; Admin Dose 5 MG; Start 10/13/18 at 09:00 Acetaminophen/ Hydrocodone Bitart ([place] (5/325)) 1 tab Q6H PRN PO PAIN; Start 10/12/18 at 22:30 Metoprolol Succinate (Toprol Xl) 50 mg DAILY PO Last administered on 10/15/18 08:53; Admin Dose 50 MG; Start 10/13/18 at 09:00 IV Flush (NS 3 ml) 3 ml PER PROTOCOL IV ; Start 10/12/18 at 22:30 Ondansetron HCl (Zofran Inj) 4 mg Q6H PRN IV NAUSEA/VOMITING; Start 10/12/18 at 22:30 Acetaminophen (Tylenol Tab) 650 mg Q6H PRN PO .PAIN 1-3 OR TEMP Last administered on 10/14/18at 17:10; Admin Dose 650 MG; Start 10/12/18 at 22:30 Docusate Sodium (Colace) 100 mg Q12H PRN PO .CONSTIPATION; Start 10/12/18 at 22:30 Bisacodyl (Dulcolax) 5 mg DAILY PRN PO .CONSTIPATION; Start 10/12/18 at 22:30 Enoxaparin Sodium (Lovenox) 40 mg DAILY SC Last administered on 10/14/18at 09:04; Admin Dose 40 MG; Start 10/13/18 at 09:00; Status Hold Docusate Sodium (Colace) 100 mg BID PO ; Start 10/13/18 at 02:30 Polyethylene Glycol (Miralax) 17 gm DAILY PO ; Start 10/13/18 at 02:30 Vancomycin HCl (Vanco Iv Per Pharmacy) VANCOMYCIN PER PHARMACY PER PROTOCOL XX ; Start 10/13/18 at 06:00 Simethicone (Mylicon) 80 mg QID PRN PO DISTENSION/GAS/BLOATING Last administered on 10/13/18at 16:18; Admin Dose 80 MG; Start 10/13/18 at 16:00 Hydromorphone HCl (Dilaudid) 1 mg Q4H PRN IV SEVERE PAIN LEVEL 7-10 Last administered on 10/15/18 13:00; Admin Dose 1 MG; Start 10/14/18 at 12:30 Oseltamivir Phosphate (Tamiflu) 75 mg BID PO Last administered on 10/15/18 08:54; Admin Dose 75 MG; Start 10/15/18 at 09:00; Stop 10/20/18 at 08:59 Doxycycline Hyclate (Vibramycin) 100 mg BID PO Last administered on 10/15/18 08:54; Admin Dose 100 MG; Start 10/15/18 at 09:00; Stop 10/20/18 at 08:59 Voriconazole 500 mg/Sodium Chloride 250 ml @ 62.5 mls/hr Q12 IVPB Last administered on 10/15/18at 04:53; Admin Dose 62.5 MLS/HR; Start 10/15/18 at 03:00; Stop 10/15/18 at 23:59 Voriconazole 350 mg/Sodium Chloride 150 ml @ 50 mls/hr Q12 IVPB ; Start 10/16/18 at 09:00 Meropenem/Sodium Chloride 50 ml @ 100 mls/hr Q8 IVPB ; Start 10/15/18 at 21:00 Vancomycin HCl 250 ml @ 125 mls/hr Q8H IVPB ; Start 10/15/18 at 19:00 BENJAMIN NOONAN Oct 15, 2018 17:14
--- NOTE | 2018-10-15 18:33 | RADRPT ---
Vent Rate: 125 bpm RR Interval: 0 msec PA Interval: 148 msec QRS Duration: 90 msec QT Interval: 304 msec QTC Interval: 438 msec P-R-T [place]: 54 - 51 - 62 degrees Sinus tachycardia Otherwise normal ECG Electronically Signed By: Alpesh Shearer
[2018-10-15] MEDS ORDERED: HEPARIN 5,000 UNIT/1 ML VIAL SC SCH (21:00)
[2018-10-15] MEDS: ACETAMINOPHEN 325 MG TAB PO PRN (21:58)
--- NOTE | 2018-10-15 22:42 | CONS ---
Assessment/Plan Assessment/Plan Assessment/Plan (Daily) 33 year old male with diffusely metastatic seminoma unresponsive to cycle of Chemo now admitted with pneumonia and sepsis -- 1. Sepsis likely 2/2 bilateral pneumonia (HCAP)ID managing abx -- Improving 2. D/C Lovenox and Hep 3. Consent for Node Bx 4. Oncology to elaborate on the reason for additional tissue diagnosis - since the pathology is established. 5. NPO past midnight. 6. IVF 100cc /hr 7. Plan for node bx under general anaesthesia Consultation Date/Type/Reason Admit Date/Time Oct 12, 2018 at 21:37 Date of Consultation: Oct 15, 2018 Type of Consult Gen Surgery Reason for Consultation Evaluation for Tumor biopsy Date/Time of Note DATE: 10/15/18 TIME: 22:06 Hx of Present Illness This is a 33 yo male with testicular cancer with pelvic, perianal, retroperitoneal, perirenal, mediastinal, supraclavicular metastases. Pt has received 4 cycles of chemotherapy, last given in 04/2018, but has residual/advancing tumors. Pt has been evaluated by a urologist for surgical resection, and has sought a second opinion from another urologist at [facility]. Pt presented at ER for several day h/o dry cough and fever. Pt denied congestion, sore throat, sputum production or dyspnea but endorsed chest tightness. At ER, he was initially afebrile but had a fever spike of 103F. His initial WBC level was 16.2. His CXR showed infiltrate at L base. He was given ceftriaxone and azithromycin at ER, and was admitted. Pt was receiving IV vancomycin and pi p/tazo. Pt has had daily fever, last recorded spike 101.2F in the morning of 10/14/2018. His chest CT on 10/05/2018 showed new areas of alveolar consolidation/atelectasis of lower lobe, L>R. There was near complete LLL atelectasis/consolidation, atelectasis of the lingula, subsegmental atelectasis anterior medial RML, minimal passive atelectasis/dependent related change posterior upper lobes, mo suspicious nodules. Chest/abd/pel CT taken at the same time showed new tumors, metastasis, enlarging adenopathy of various organs. Subjectively Pt c/o diffuse myalgia and "cancer pain" affecting his back, for which he takes Dilaudid. Pt is originally from [facility] and has lived in [facility] since age 4. He lives at home with his and 4 dogs. He denies recent sick contact or travel. He does not recall if he had anti-influenza vaccine [id number]. He denies exposure to Pt with TB. 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 He denies exposure to excess dusts or fume. Request was made by oncology for new tissue biopsy. Past Medical History Medical History: hypertension, other (testicular CA) Home Meds Active Scripts Hydrocodone/Acetaminophen ([place] 5-325 Tablet) 1 Each Tablet, 1 TAB PO Q6H PRN for PAIN, #20 TAB Prov:MYLESKIN 09/12/18 Amlodipine Besylate* (Norvasc*) 5 Mg Tablet, 5 MG PO DAILY, #60 TAB Prov:HAFSA BARRERA 01/09/18 Metoprolol Succinate* (Toprol XL*) 50 Mg Tab.er.24h, 50 MG PO DAILY, #60 TAB Prov:HAFSA BARRERA 01/09/18 Reported Medications Hydromorphone Hcl* (Dilaudid*) 2 Mg Tablet, 2 MG PO Q3H PRN for PAIN, TAB 10/12/18 Amoxicillin/Potassium Clav (Amox-Clav 875-125 mg Tablet) 875-125 mg Tab, 1 TAB PO BID, #20 TAB 10/12/18 Methyl Salicylate/Menthol (Bengay Greaseless Cream) 57 Gm Cream..g., 57 GM TP 09/12/18 Hydrochlorothiazide* (Hydrochlorothiazide*) 12.5 Mg Tablet, 12.5 MG PO DAILY for 90 Days, #90 09/12/18 Discontinued Reported Medications Ibuprofen* (Ibuprofen*) 600 Mg Tablet, 600 MG PO Q8 PRN for PRN, TAB 01/05/18 Medications Current Medications Amlodipine Besylate (Norvasc) 5 mg DAILY PO Last administered on 10/15/18at 08:54; Admin Dose 5 MG; Start 10/13/18 at 09:00 Acetaminophen/ Hydrocodone Bitart ([place] (5/325)) 1 tab Q6H PRN PO PAIN; Start 10/12/18 at 22:30 Metoprolol Succinate (Toprol Xl) 50 mg DAILY PO Last administered on 10/15/18at 08:53; Admin Dose 50 MG; Start 10/13/18 at 09:00 IV Flush (NS 3 ml) 3 ml PER PROTOCOL IV ; Start 10/12/18 at 22:30 Ondansetron HCl (Zofran Inj) 4 mg Q6H PRN IV NAUSEA/VOMITING; Start 10/12/18 at 22:30 Acetaminophen (Tylenol Tab) 650 mg Q6H PRN PO .PAIN 1-3 OR TEMP Last administered on 10/15/18 21:58; Admin Dose 650 MG; Start 10/12/18 at 22:30 Docusate Sodium (Colace) 100 mg Q12H PRN PO .CONSTIPATION; Start 10/12/18 at 22:30 Bisacodyl (Dulcolax) 5 mg DAILY PRN PO .CONSTIPATION; Start 10/12/18 at 22:30 Enoxaparin Sodium (Lovenox) 40 mg DAILY SC Last administered on 10/14/18 09:04; Admin Dose 40 MG; Start 10/13/18 at 09:00; Status Hold Docusate Sodium (Colace) 100 mg BID PO Last administered on 10/15/18 20:17; Admin Dose 100 MG; Start 10/13/18 at 02:30 Polyethylene Glycol (Miralax) 17 gm DAILY PO ; Start 10/13/18 at 02:30 Vancomycin HCl (Vanco Iv Per Pharmacy) VANCOMYCIN PER PHARMACY PER PROTOCOL XX ; Start 10/13/18 at 06:00 Simethicone (Mylicon) 80 mg QID PRN PO DISTENSION/GAS/BLOATING Last administered on 10/13/18 16:18; Admin Dose 80 MG; Start 10/13/18 at 16:00 Hydromorphone HCl (Dilaudid) 1 mg Q4H PRN IV SEVERE PAIN LEVEL 7-10 Last admin istered on 10/15/18 21:58; Admin Dose 1 MG; Start 10/14/18 at 12:30 Oseltamivir Phosphate (Tamiflu) 75 mg BID PO Last administered on 10/15/18 20:17; Admin Dose 75 MG; Start 10/15/18 at 09:00; Stop 10/20/18 at 08:59 Doxycycline Hyclate (Vibramycin) 100 mg BID PO Last administered on 10/15/18 20:17; Admin Dose 100 MG; Start 10/15/18 at 09:00; Stop 10/20/18 at 08:59 Voriconazole 500 mg/Sodium Chloride 250 ml @ 62.5 mls/hr Q12 IVPB Last administered on 10/15/18at 04:53; Admin Dose 62.5 MLS/HR; Start 10/15/18 at 03:00; Stop 10/15/18 at 23:59 Voriconazole 350 mg/Sodium Chloride 150 ml @ 50 mls/hr Q12 IVPB ; Start 10/16/18 at 09:00 Meropenem/Sodium Chloride 50 ml @ 100 mls/hr Q8 IVPB Last administered on 10/15/18at 21:58; Admin Dose 100 MLS/HR; Start 10/15/18 at 21:00 Vancomycin HCl 250 ml @ 125 mls/hr Q8H IVPB Last administered on 10/15/18at 19:51; Admin Dose 125 MLS/HR; Start 10/15/18 at 19:00 Heparin Sodium (Porcine) (Heparin (5000 Units/1ml)) 5,000 unit BID SC Last administered on 10/15/18at 20:19; Admin Dose 5,000 UNIT; Start 10/15/18 at 21:00 Allergies: Coded Allergies: No Known Allergy (Unverified , 10/12/18) Past Surgical History Past Surgical Hx: other (s/p placement of L ureteral JJ stent in 01/2018) Social History Alcohol Use: none Smoking Status: Never smoker Drug Use: none Exam/Review of Systems Exam Vitals Vital Signs Date Temp Pulse Resp B/P (MAP) Pulse Ox O2 O2 Flow FiO2 Time Delivery Rate 10/15/18 101.1 21:58 10/15/18 135 19 123/60 96 21:43 (81) 10/15/18 Room Air 15:28 Intake and Output 10/14/18 10/14/18 10/15/18 1515:00 23:00 07:00 IntakeIntake Total 300 ml 1450 ml BalanceBalance 300 ml 1450 ml Results Result Diagram: 10/15/18 1041 10/15/18 0509 Results 24hrs Laboratory Tests Test 10/14/18 23:06 10/15/18 05:09 10/15/18 10:41 White Blood Count 15.6 H 14.4 H Red Blood Count 3.75 #L 3.70 L Hemoglobin 8.6 #L 8.5 L 8.3 L Hematocrit 27.5 #L 27.1 L 26.3 L Mean Corpuscular Volume 73.3 L 73.2 L Mean Corpuscular Hemoglobin 22.9 L 23.0 L Mean Corpuscular Hemoglobin Concent 31.3 L 31.4 L Red Cell Distribution Width 18.3 H 18.2 H Platelet Count 536 H 556 H Mean Platelet Volume 8.3 8.8 Immature Granulocytes % 0.700 H 0.800 H Neutrophils % 81.5 H 79.5 H Lymphocytes % 9.5 L 11.3 L Monocytes % 8.0 8.0 Eosinophils % 0.2 0.1 Basophils % 0.1 0.3 Nucleated Red Blood Cells % 0.0 0.0 Immature Granulocytes # 0.110 H 0.110 H Neutrophils # 12.7 H 11.5 H Lymphocytes # 1.5 1.6 Monocytes # 1.3 H 1.2 H Eosinophils # 0.0 0.0 Basophils # 0.0 0.0 Nucleated Red Blood Cells # 0.0 0.0 Absolute Reticulocyte Count 0.033 Percent Reticulocyte Count 0.9 Sodium Level 138 Potassium Level 3.9 Chloride Level 103 Carbon Dioxide Level 24 Anion Gap 11 Blood Urea Nitrogen 8 Creatinine 0.81 Est Glomerular Filtrat Rate mL/min > 60 Glucose Level 93 Calcium Level 9.0 Phosphorus Level 3.5 Magnesium Level 2.5 Total Bilirubin 0.4 Direct Bilirubin 0.00 Indirect Bilirubin 0.4 Aspartate Amino Transf (AST/SGOT) 35 Alanine Aminotransferase (ALT/SGPT) 16 Alkaline Phosphatase 541 H B-Type Natriuretic Peptide 186 H Total Protein 8.0 Albumin 3.2 L Globulin 4.80 H Albumin/Globulin Ratio 0.66 Imaging Imaging FINDINGS: CT chest Chest wall: No axillary adenopathy. Thoracic inlet: Matted, partially necrotic left level 5 be and left supraclavicular fossa adenopathy, present on the prior study. Increased size of left supraclavicular fossa adenopathy. Mediastinum: Scattered sub centimeter mediastinal. Lymph nodes, slightly la rger. No hilar adenopathy. Enlarging bulky adenopathy posterior to the descending thoracic aorta and to the right of the distal esophagus. Enlarging right retrocrural adenopathy. Vascular structures: Non-dedicated angiographic images. No thoracic aortic aneurysm, dissection or transection. No central pulmonary arterial filling defect identified. Heart and pericardium: Normal size heart. Small pericardial effusion, unchanged. Pleural spaces: Small bilateral pleural effusions, new. Lungs: New areas of alveolar consolidation/atelectasis involving the left right lower lobes, left greater than right. There is near complete left lower lobe atelectasis/consolidation. There is also atelectasis involving the lingula, new. Subsegmental atelectasis anterior medial right middle lobe, new. Minimal passive atelectasis/dependent related change posterior upper lobes.. No suspicious nodules. Osseous structures: No lytic or blastic changes. No endplate fractures. CT abdomen Liver: Low attenuation lesions are present within the left and right hepatic lobes, new and suspicious for metastatic disease. Largest measures 2.0 cm. Patent portal vein. Gallbladder and bile ducts: No calcified gallstones or pericholecystic fluid. No biliary ductal dilatation. Spleen: Normal appearance. Pancreas: Normal appearance. No ductal dilatation. No mass. No peripancreatic stranding. Adrenal glands: Normal appearance. Kidneys: Delayed left nephrogram. Right-sided internal renal stent is present. There is heterogeneously enhancing tumor invading the left kidney, new. Normal right kidney. No solid lesions. Vasculature: No abdominal aortic aneurysm. Calcified plaque absent. Compressed inferior vena cava due to pericaval adenopathy. Intraluminal extension is not excluded. Lymph nodes: Bulky periaortic and retroperitoneal adenopathy, decreased in volume from the previous exam. New 5.1 cm mass between the left kidney and the posterior pancreas. Enlarging peripancreatic adenopathy. Bilateral retrocrural adenopathy, slightly smaller. GI: No hiatal hernia. No evidence of obstruction or bowel wall thickening. Peritoneal cavity: No free air. Minimal fluid in the pericolic gutters with slight increase in pericolic gutter soft tissue stranding. CT pelvis GI: Negative terminal ileum. Negative appendix. Attenuated distal sigmoid colon. Negative rectum. : Negative prostate gland. Minimally filled contrast containing urinary bladder. Absent left spermatic cord. Soft tissue thickening in the area of the previous left spermatic cord from surgery. Peritoneal cavity: Mild to moderate pelvic ascites, surrounding the attenuated segment of distal sigmoid colon. Lymph nodes: Left external iliac chain adenopathy, increased in size. Small bilateral reactive groin lymph nodes. Osseous structures: No lytic or blastic lesions. IMPRESSION: 1. Enlarging left supraclavicular fossa adenopathy from 09/12/2018. 2. Sub centimeter, but enlarging superior mediastinal lymph nodes. 3. Enlarging distal para esophageal adenopathy. Enlarging adenopathy posterior to the descending thoracic aorta. 4. New bilateral pleural effusions with near complete atelectasis of the left lower lobe, subsegmental atelectasis involving the right lower lobe and lingula. 5. New multiple hepatic metastatic disease. 6. Mixed response of retroperitoneal and intraperitoneal adenopathy from 2018. Overall, disease has slightly increased. 7. New tumor invasion involving the left kidney with left internal renal stent in place. 8. Mild to moderate pelvic ascites, new. This could be metastatic ascites is that surrounds attenuating portion of the distal sigmoid colon. 9. Mass effect on the IVC due to adenopathy. Intraluminal extension is not excluded. Medications Medication Current Medications Amlodipine Besylate (Norvasc) 5 mg DAILY PO Last administered on 10/15/18at 08:54; Admin Dose 5 MG; Start 10/13/18 at 09:00 Acetaminophen/ Hydrocodone Bitart ([place] (5/325)) 1 tab Q6H PRN PO PAIN; Start 10/12/18 at 22:30 Metoprolol Succinate (Toprol Xl) 50 mg DAILY PO Last administered on 10/15/18at 08:53; Admin Dose 50 MG; Start 10/13/18 at 09:00 IV Flush (NS 3 ml) 3 ml PER PROTOCOL IV ; Start 10/12/18 at 22:30 Ondansetron HCl (Zofran Inj) 4 mg Q6H PRN IV NAUSEA/VOMITING; Start 10/12/18 at 22:30 Acetaminophen (Tylenol Tab) 650 mg Q6H PRN PO .PAIN 1-3 OR TEMP Last administered on 10/15/18at 21:58; Admin Dose 650 MG; Start 10/12/18 at 22:30 Docusate Sodium (Colace) 100 mg Q12H PRN PO .CONSTIPATION; Start 10/12/18 at 22:30 Bisacodyl (Dulcolax) 5 mg DAILY PRN PO .CONSTIPATION; Start 10/12/18 at 22:30 Enoxaparin Sodium (Lovenox) 40 mg DAILY SC Last administered on 10/14/18at 09:04; Admin Dose 40 MG; Start 10/13/18 at 09:00; Status Hold Docusate Sodium (Colace) 100 mg BID PO Last administered on 10/15/18 20:17; Admin Dose 100 MG; Start 10/13/18 at 02:30 Polyethylene Glycol (Miralax) 17 gm DAILY PO ; Start 10/13/18 at 02:30 Vancomycin HCl (Vanco Iv Per Pharmacy) VANCOMYCIN PER PHARMACY PER PROTOCOL XX ; Start 10/13/18 at 06:00 Simethicone (Mylicon) 80 mg QID PRN PO DISTENSION/GAS/BLOATING Last adminis tered on 10/13/18 16:18; Admin Dose 80 MG; Start 10/13/18 at 16:00 Hydromorphone HCl (Dilaudid) 1 mg Q4H PRN IV SEVERE PAIN LEVEL 7-10 Last administered on 10/15/18 21:58; Admin Dose 1 MG; Start 10/14/18 at 12:30 Oseltamivir Phosphate (Tamiflu) 75 mg BID PO Last administered on 10/15/18 20:17; Admin Dose 75 MG; Start 10/15/18 at 09:00; Stop 10/20/18 at 08:59 Doxycycline Hyclate (Vibramycin) 100 mg BID PO Last administered on 10/15/18 20:17; Admin Dose 100 MG; Start 10/15/18 at 09:00; Stop 10/20/18 at 08:59 Voriconazole 500 mg/Sodium Chloride 250 ml @ 62.5 mls/hr Q12 IVPB Last administered on 10/15/18 04:53; Admin Dose 62.5 MLS/HR; Start 10/15/18 at 03:00; Stop 10/15/18 at 23:59 Voriconazole 350 mg/Sodium Chloride 150 ml @ 50 mls/hr Q12 IVPB ; Start 10/16/18 at 09:00 Meropenem/Sodium Chloride 50 ml @ 100 mls/hr Q8 IVPB Last administered on 10/15/18 21:58; Admin Dose 100 MLS/HR; Start 10/15/18 at 21:00 Vancomycin HCl 250 ml @ 125 mls/hr Q8H IVPB Last administered on 10/15/18at 19:51; Admin Dose 125 MLS/HR; Start 10/15/18 at 19:00 Heparin Sodium (Porcine) (Heparin (5000 Units/1ml)) 5,000 unit BID SC Last administered on 10/15/18at 20:19; Admin Dose 5,000 UNIT; Start 10/15/18 at 21:00 YASMINE CHARLES MD Oct 15, 2018 22:16
[2018-10-16] VITALS (13 sets, daily range): BP systolic 127–152; BP diastolic 82–93; PULSE 103–139; RESP 18–19
[2018-10-16] MEDS: HYDROmorphONE 1 MG/ML SYG IV PRN ×5 (03:22→20:41)
[2018-10-16] MEDS: VANCOMYCIN 1 GM 250 ML IVPB SCH ×3 (03:24→18:35)
[2018-10-16] MEDS: MEROPENEM 1 GM/50ML(PMX) 50 ML IVPB SCH ×3 (06:54→21:02)
[2018-10-16] MEDS: DOCUSATE SODIUM 100 MG CAP PO SCH ×3 (08:29→20:53)
[2018-10-16] MEDS: POLYETHYLENE GLYCOL 17 GM PACKET PO SCH ×2 (08:29→13:19)
[2018-10-16] MEDS: AMLODIPINE 5 MG TAB PO SCH ×2 (08:29→13:19)
[2018-10-16] MEDS: METOPROLOL (XL) 50 MG TAB PO SCH ×2 (09:00→13:19)
[2018-10-16] MEDS: OSELTAMIVIR 75 MG CAP PO SCH ×3 (09:00→21:02)
[2018-10-16] MEDS ORDERED: SOD CHLORIDE 0.9% IVPB SCH (09:00)
[2018-10-16] MEDS: DOXYCYCLINE 100 MG TAB PO SCH ×3 (09:00→21:02)
[2018-10-16] MEDS ORDERED: VORICONAZOLE IVPB SCH (09:00)
--- NOTE | 2018-10-16 11:16 | CONS ---
Assessment/Plan Assessment/Plan Assessment/Plan (Daily) Chest x-ray and CT chest were reviewed in detail. Assessment and recommendations; 1. Patient with history of seminoma status post chemotherapy now admitted for significant weight loss as well as left lower lobe consolidation which appears postobstructive in etiology with bilateral pleural effusions as well as extensive cervical supraclavicular mediastinal and abdominal lymphadenopathy. The findings are highly indicative of underlying lymphoma. 2. Fungal and viral infections are very unlikely at this point. Patient scheduled for cervical lymph node biopsy today. Meanwhile consider stopping antifungal and antiviral coverage. However that I would defer that to the ID specialist. Consultation Date/Type/Reason Admit Date/Time Oct 12, 2018 at 21:37 Date of Consultation: Oct 16, 2018 Type of Consult Pulmonary Pulmonary consult requested for evaluation of left lower lobe infiltrate as well as pleural effusions. Patient is a pleasant 33-year-old male who was admitted to the hospital with complaints of fever as well as fast heart rate. Upon further evaluation chest x-ray was done as well as CT scan of the chest which is showing left lower lobe consolidation with significant mediastinal as well as abdominal adenopathy with left lower lobe consolidation and bilateral pleural effusions. Patient currently is awaiting left cervical lymph node biopsy today. He denies any shortness of breath at rest, any coughing, sputum production hemoptysis or any further fever. Past medical history; next 1. 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 Status post excision as well as chemotherapy which she finished April of last year. According to the patient the tumor did go into complete remission however over the last few months the patient is again having progressive clin ical downhill course with weight loss, fever, severe back pain. Medications; reviewed. Allergies; none. Social history; noncontributory. Family history; patient , has supportive . No show any malignancy in the family. 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 Review of systems; denies any headache, seizures, visual changes. Any sinus symptoms. Denies any chest pain. Still complains of back pain. Denies any dysphagia. Any coughing, sputum production or wheezing. Denies any further fever. Denies any abdominal pain, nausea vomiting. Any melena or hematochezia. He has lost 40 pounds over the last few months. Denies any skin rash. Denies any orthopnea. Any urinary symptoms. General exam; young male, awake alert, currently in no distress. Date/Time of Note DATE: 10/16/18 TIME: 11:10 Past Medical History Medical History: hypertension, other (testicular CA) Home Meds Active Scripts Hydrocodone/Acetaminophen ([place] 5-325 Tablet) 1 Each Tablet, 1 TAB PO Q6H PRN for PAIN, #20 TAB Prov:KIN BUENO 09/12/18 Amlodipine Besylate* (Norvasc*) 5 Mg Tablet, 5 MG PO DAILY, #60 TAB Prov:HAFSA BARRERA 01/09/18 Metoprolol Succinate* (Toprol XL*) 50 Mg Tab.er.24h, 50 MG PO DAILY, #60 TAB Prov:HAFSA BARRERA 01/09/18 Reported Medications Hydromorphone Hcl* (Dilaudid*) 2 Mg Tablet, 2 MG PO Q3H PRN for PAIN, TAB 10/12/18 Amoxicillin/Potassium Clav (Amox-Clav 875-125 mg Tablet) 875-125 mg Tab, 1 TAB PO BID, #20 TAB 10/12/18 Methyl Salicylate/Menthol ([place] Greaseless Cream) 57 Gm Cream..g., 57 GM TP 09/12/18 Hydrochlorothiazide* (Hydrochlorothiazide*) 12.5 Mg Tablet, 12.5 MG PO DAILY for 90 Days, #90 09/12/18 Discontinued Reported Medications Ibuprofen* (Ibuprofen*) 600 Mg Tablet, 600 MG PO Q8 PRN for PRN, TAB 01/05/18 Medications Current Medications Amlodipine Besylate (Norvasc) 5 mg DAILY PO Last administered on 10/15/18at 08:54; Admin Dose 5 MG; Start 10/13/18 at 09:00 Acetaminophen/ Hydrocodone Bitart ([place] (5/325)) 1 tab Q6H PRN PO PAIN; Start 10/12/18 at 22:30 Metoprolol Succinate (Toprol Xl) 50 mg DAILY PO Last administered on 10/15/18at 08:53; Admin Dose 50 MG; Start 10/13/18 at 09:00 IV Flush (NS 3 ml) 3 ml PER PROTOCOL IV ; Start 10/12/18 at 22:30 Ondansetron HCl (Zofran Inj) 4 mg Q6H PRN IV NAUSEA/VOMITING; Start 10/12/18 at 22:30 Acetaminophen (Tylenol Tab) 650 mg Q6H PRN PO .PAIN 1-3 OR TEMP Last administered on 10/15/18 21:58; Admin Dose 650 MG; Start 10/12/18 at 22:30 Docusate Sodium (Colace) 100 mg Q12H PRN PO .CONSTIPATION; Start 10/12/18 at 22:30 Bisacodyl (Dulcolax) 5 mg DAILY PRN PO .CONSTIPATION; Start 10/12/18 at 22:30 Enoxaparin Sodium (Lovenox) 40 mg DAILY SC Last administered on 10/14/18 09:04; Admin Dose 40 MG; Start 10/13/18 at 09:00; Status Hold Docusate Sodium (Colace) 100 mg BID PO Last administered on 10/15/18 20:17; Admin Dose 100 MG; Start 10/13/18 at 02:30 Polyethylene Glycol (Miralax) 17 gm DAILY PO ; Start 10/13/18 at 02:30 Vancomycin HCl (Vanco Iv Per Pharmacy) VANCOMYCIN PER PHARMACY PER PROTOCOL XX ; Start 10/13/18 at 06:00 Simethicone (Mylicon) 80 mg QID PRN PO DISTENSION/GAS/BLOATING Last a dministered on 10/13/18 16:18; Admin Dose 80 MG; Start 10/13/18 at 16:00 Hydromorphone HCl (Dilaudid) 1 mg Q4H PRN IV SEVERE PAIN LEVEL 7-10 Last administered on 10/16/18 07:16; Admin Dose 1 MG; Start 10/14/18 at 12:30 Oseltamivir Phosphate (Tamiflu) 75 mg BID PO Last administered on 10/15/18 20: 17; Admin Dose 75 MG; Start 10/15/18 at 09:00; Stop 10/20/18 at 08:59 Doxycycline Hyclate (Vibramycin) 100 mg BID PO Last administered on 10/15/18 20:17; Admin Dose 100 MG; Start 10/15/18 at 09:00; Stop 10/20/18 at 08:59 Meropenem/Sodium Chloride 50 ml @ 100 mls/hr Q8 IVPB Last administered on 06:54; Admin Dose 100 MLS/HR; Start 10/15/18 at 21:00 Vancomycin HCl 250 ml @ 125 mls/hr Q8H IVPB Last administered on 10/16/18at 10:38; Admin Dose 125 MLS/HR; Start 10/15/18 at 19:00 Heparin Sodium (Porcine) (Heparin (5000 Units/1ml)) 5,000 unit BID SC Last administered on 10/15/18at 20:19; Admin Dose 5,000 UNIT; Start 10/15/18 at 21:00; Status Hold Voriconazole 350 mg/Sodium Chloride 150 ml @ 50 mls/hr Q12H IVPB ; Start 10/16/18 at 12:30 Allergies: Coded Allergies: No Known Allergy (Unverified , 10/12/18) Past Surgical History Past Surgical Hx: other (s/p placement of L ureteral JJ stent in 01/2018) Social History Alcohol Use: none Smoking Status: Never smoker Drug Use: none Exam/Review of Systems Exam Vitals Vital Signs Date Temp Pulse Resp B/P (MAP) Pulse Ox O2 O2 Flow FiO2 Time Delivery Rate 10/16/18 123 08:00 10/16/18 98.7 19 138/86 100 07:43 (103) 10/15/18 Room Air 15:28 Intake and Output 10/15/18 10/15/18 10/16/18 1515:00 23:00 07:00 IntakeIntake Total 850 ml 900 ml 980 ml BalanceBalance 850 ml 900 ml 980 ml Exam H EENT exam; supple neck, no JVD. There is extensive left cervical lymphadenopathy.. Midline trachea. No thyromegaly. Patient has fair dentition. Chest exam; diminished breath sounds left upper lobe. S1-S2 audible, no murmurs. Regular rhythm. Abdomen exam; soft, nontender. No organomegaly. Bowel sounds audible. Extremity exam; no peripheral edema or clubbing. 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 Results Result Diagram: 10/16/18 0611 10/16/18 0611 Results 24hrs Laboratory Tests Test 10/16/18 06:11 White Blood Count 10.1 # Red Blood Count 3.63 L Hemoglobin 8.4 L Hematocrit 26.3 L Mean Corpuscular Volume 72.5 L Mean Corpuscular Hemoglobin 23.1 L Mean Corpuscular Hemoglobin Concent 31.9 L Red Cell Distribution Width 18.8 H Platelet Count 531 H Mean Platelet Volume 8.4 Immature Granulocytes % 0.700 H Neutrophils % 71.4 Lymphocytes % 16.8 Monocytes % 9.8 Eosinophils % 1.1 Basophils % 0.2 Nucleated Red Blood Cells % 0.0 Immature Granulocytes # 0.070 H Neutrophils # 7.2 Lymphocytes # 1.7 Monocytes # 1.0 H Eosinophils # 0.1 Basophils # 0.0 Nucleated Red Blood Cells # 0.0 Prothrombin Time 15.1 H Prothrombin Time Ratio 1.2 INR International Normalized Ratio 1.18 Activated Partial Thromboplast Time 40.8 H Sodium Level 143 Potassium Level 4.3 Chloride Level 105 Carbon Dioxide Level 28 Anion Gap 10 Blood Urea Nitrogen 8 Creatinine 0.83 Est Glomerular Filtrat Rate mL/min > 60 Glucose Level 82 Calcium Level 9.2 Total Bilirubin 0.1 L Direct Bilirubin 0.00 Indirect Bilirubin 0.1 Aspartate Amino Transf (AST/SGOT) 40 Alanine Aminotransferase (ALT/SGPT) 21 Alkaline Phosphatase 538 H Total Protein 8.0 Albumin 3.2 L Globulin 4.80 H Albumin/Globulin Ratio 0.66 Medications Medication Current Medications Amlodipine Besylate (Norvasc) 5 mg DAILY PO Last administered on 10/15/18at 08:54; Admin Dose 5 MG; Start 10/13/18 at 09:00 Acetaminophen/ Hydrocodone Bitart ([place] (5/325)) 1 tab Q6H PRN PO PAIN; Start 10/12/18 at 22:30 Metoprolol Succinate (Toprol Xl) 50 mg DAILY PO Last administered on 10/15/18at 08:53; Admin Dose 50 MG; Start 10/13/18 at 09:00 IV Flush (NS 3 ml) 3 ml PER PROTOCOL IV ; Start 10/12/18 at 22:30 Ondansetron HCl (Zofran Inj) 4 mg Q6H PRN IV NAUSEA/VOMITING; Start 10/12/18 at 22:30 Acetaminophen (Tylenol Tab) 650 mg Q6H PRN PO .PAIN 1-3 OR TEMP Last administered on 10/15/18at 21:58; Admin Dose 650 MG; Start 10/12/18 at 22:30 Docusate Sodium (Colace) 100 mg Q12H PRN PO .CONSTIPATION; Start 10/12/18 at 22:30 Bisacodyl (Dulcolax) 5 mg DAILY PRN PO .CONSTIPATION; Start 10/12/18 at 22:30 Enoxaparin Sodium (Lovenox) 40 mg DAILY SC Last administered on 10/14/18at 09:04; Admin Dose 40 MG; Start 10/13/18 at 09:00; Status Hold Docusate Sodium (Colace) 100 mg BID PO Last administered on 10/15/18 20:17; Admin Dose 100 MG; Start 10/13/18 at 02:30 Polyethylene Glycol (Miralax) 17 gm DAILY PO ; Start 10/13/18 at 02:30 Vancomycin HCl (Vanco Iv Per Pharmacy) VANCOMYCIN PER PHARMACY PER PROTOCOL XX ; Start 10/13/18 at 06:00 Simethicone (Mylicon) 80 mg QID PRN PO DISTENSION/GAS/BLOATING Last administered on 10/13/18 16:18; Admin Dose 80 MG; Start 10/13/18 at 16:00 Hydromorphone HCl (Dilaudid) 1 mg Q4H PRN IV SEVERE PAIN LEVEL 7-10 Last administered on 10/16/18 07:16; Admin Dose 1 MG; Start 10/14/18 at 12:30 Oseltamivir Phosphate (Tamiflu) 75 mg BID PO Last administered on 10/15/18 20:17; Admin Dose 75 MG; Start 10/15/18 at 09:00; Stop 10/20/18 at 08:59 Doxycycline Hyclate (Vibramycin) 100 mg BID PO Last administered on 10/15/18 20:17; Admin Dose 100 MG; Start 10/15/18 at 09:00; Stop 10/20/18 at 08:59 Meropenem/Sodium Chloride 50 ml @ 100 mls/hr Q8 IVPB Last administered on 10/16/18 06:54; Admin Dose 100 MLS/HR; Start 10/15/18 at 21:00 Vancomycin HCl 250 ml @ 125 mls/hr Q8H IVPB Last administered on 10/16/18at 10:38; Admin Dose 125 MLS/HR; Start 10/15/18 at 19:00 Heparin Sodium (Porcine) (Heparin (5000 Units/1ml)) 5,000 unit BID SC Last administered on 10/15/18 20:19; Admin Dose 5,000 UNIT; Start 10/15/18 at 21:00; Status Hold Voriconazole 350 mg/Sodium Chloride 150 ml @ 50 mls/hr Q12H IVPB ; Start 10/16/18 at 12:30 FERNANDO COLBERT 12, 2019 11:16
[2018-10-16] MEDS: SOD CHLORIDE 0.9% IVPB SCH ×2 (13:11→23:38)
[2018-10-16] MEDS: VORICONAZOLE IVPB SCH ×2 (13:11→23:38)
--- NOTE | 2018-10-16 14:04 | CONS ---
Assessment/Plan Assessment/Plan Hospital Course (Demo Recall) - sepsis due to pneumonia, HCAP - fever and leukocytosis improving - pneumonia, HCAP in an immunocompromised Pt. CT on 10/05/2018 showed new areas of alveolar consolidation/atelectasis of lower lobe, L>R. There was near complete LLL atelectasis/consolidation, atelectasis of the lingula, subsegmental atelectasis anterior medial RML, minimal passive atelectasis/dependent related change posterior upper lobes, mo suspicious nodules. - dry cough, concerning for viral bronchitis, fungal pneumonia is also considered - immunocompromised status: metastatic testicular CA, s/p chemo - testicular CA with pelvic, perianal, retroperitoneal, perirenal, mediastinal, supraclavicular metastases, recurrent s/p 4 cycles of chemo last given in 04/2018 - daily fever, due to pneumonia but also due to metastatic CA - h/o hydroureter due to testicular CA s/p insertion of L ureteral JJ stent placement in 01/2018 Recommendations: - Pending: nasopharyngeal swab for influenza RT-PCR (EIA was negative) and for respiratory viruses, urine legionella antigen, procalcitonin (ordered for am), coccidioides serology, cryptococcus antigen, quantiFERON TB gold - Continue IV vancomycin (10/12/2018-), meropenem (10/14/2018-); - Continue PO doxycycline (10/15/2018-) for atypical coverage, ordered for 5 days; empiric PO oseltamivir (10/15/2018-) for a high clinical suspicion of influenza bronchitis, ordered for 5 days; and IV voriconazole for empiric antifungal coverage - Pt is sheduled to have L neck lymph node biopsy tomorrow Management d/w patient, JAMES Fletcher, and with Dr. Gilliland. Consultation Date/Type/Reason Admit Date/Time Oct 12, 2018 at 21:37 Initial Consult Date 10/16/18 Type of Consult Infectious Disease Requesting Provider: DARRYL VIVEROS NP Date/Time of Note DATE: 10/16/18 TIME: 13:59 24 HR Interval Summary Free Text/Dictation Left neck lymph node biopsy to be done tomorrow per d/w nursing. Fever curve is improving. C/o feeling "bloated" r/t IVF. Had normal BM today. Currently denies pain, SOB, n/v/d, dysuria. Has occ dry cough. Exam/Review of Systems Exam Vitals Vital Signs Date Temp Pulse Resp B/P (MAP) Pulse Ox O2 O2 Flow FiO2 Time Delivery Rate 10/16/18 121 12:00 10/16/18 98.7 18 140/85 94 11:09 (103) 10/15/18 Room Air 15:28 Intake and Output 10/15/18 10/15/18 10/16/18 1515:00 23:00 07:00 IntakeIntake Total 850 ml 900 ml 980 ml BalanceBalance 850 ml 900 ml 980 ml Exam Constitutional: alert, oriented, well developed Psych: no complaints, nl mood/affect Head: normocephalic, atraumatic Eyes: nl conjunctiva, nl lids, nl sclera ENMT: nl external ears & nose, nl nasal mucosa & septum, mucosa pink and moist Neck: supple, other (+ cervical lymphadenopathy) Respiratory: clear to auscultation, normal air movement, diminished breath sounds (bibasilar), other (intermittent dry cough noted Cardiovascular: regular rate and rhythm (mildly tachycardic), nl pulses Gastrointestinal: soft, non-tender, bowel sounds (normoactive) Musculoskeletal: nl extremities to inspection Extremities: normal pulses; No edema 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, nl mental status, nl speech, nl strength Skin: nl turgor; No rash or lesions Results Result Diagram: 10/16/18 0611 10/16/18 0611 Results 24hrs Laboratory Tests Test 10/16/18 06:11 White Blood Count 10.1 # Red Blood Count 3.63 L Hemoglobin 8.4 L Hematocrit 26.3 L Mean Corpuscular Volume 72.5 L Mean Corpuscular Hemoglobin 23.1 L Mean Corpuscular Hemoglobin Concent 31.9 L Red Cell Distribution Width 18.8 H Platelet Count 531 H Mean Platelet Volume 8.4 Immature Granulocytes % 0.700 H Neutrophils % 71.4 Lymphocytes % 16.8 Monocytes % 9.8 Eosinophils % 1.1 Basophils % 0.2 Nucleated Red Blood Cells % 0.0 Immature Granulocytes # 0.070 H Neutrophils # 7.2 Lymphocytes # 1.7 Monocytes # 1.0 H Eosinophils # 0.1 Basophils # 0.0 Nucleated Red Blood Cells # 0.0 Prothrombin Time 15.1 H Prothrombin Time Ratio 1.2 INR International Normalized Ratio 1.18 Activated Partial Thromboplast Time 40.8 H Sodium Level 143 Potassium Level 4.3 Chloride Level 105 Carbon Dioxide Level 28 Anion Gap 10 Blood Urea Nitrogen 8 Creatinine 0.83 Est Glomerular Filtrat Rate mL/min > 60 Glucose Level 82 Calcium Level 9.2 Total Bilirubin 0.1 L Direct Bilirubin 0.00 Indirect Bilirubin 0.1 Aspartate Amino Transf (AST/SGOT) 40 Alanine Aminotransferase (ALT/SGPT) 21 Alkaline Phosphatase 538 H Total Protein 8.0 Albumin 3.2 L Globulin 4.80 H Albumin/Globulin Ratio 0.[address] Chest 10/14/18: 1. Enlarging left supraclavicular fossa adenopathy from 09/12/2018. 2. Sub centimeter, but enlarging superior mediastinal lymph nodes. 3. Enlarging distal para esophageal adenopathy. Enlarging adenopathy posterior to the descending thoracic aorta. 4. New bilateral pleural effusions with near complete atelectasis of the left lower lobe, subsegmental atelectasis involving the right lower lobe and lingula. 5. New multiple hepatic metastatic disease. 6. Mixed response of retroperitoneal and intraperitoneal adenopathy from 2018. Overall, disease has slightly increased. 7. New tumor invasion involving the left kidney with left internal renal stent in place. 8. Mild to moderate pelvic ascites, new. This could be metastatic ascites is that surrounds attenuating portion of the distal sigmoid colon. 9. Mass effect on the IVC due to adenopathy. Intraluminal extension is not excluded. CT Neck 10/14/18: Metastatic left level 5 and left supraclavicular fossa adenopathy with areas of inessa necrosis. CXR 10/12/18: Patchy left basilar infiltrate with a small left pleural effusion. Continued follow-up until resolution is suggested. Medications Medication Current Medications Amlodipine Besylate (Norvasc) 5 mg DAILY PO Last administered on 10/16/18at 13:19; Admin Dose 5 MG; Start 10/13/18 at 09:00 Acetaminophen/ Hydrocodone Bitart ([place] (5/325)) 1 tab Q6H PRN PO PAIN; Start 10/12/18 at 22:30 Metoprolol Succinate (Toprol Xl) 50 mg DAILY PO Last administered on 10/16/18at 13:19; Admin Dose 50 MG; Start 10/13/18 at 09:00 IV Flush (NS 3 ml) 3 ml PER PROTOCOL IV ; Start 10/12/18 at 22:30 Ondansetron HCl (Zofran Inj) 4 mg Q6H PRN IV NAUSEA/VOMITING; Start 10/12/18 at 22:30 Acetaminophen (Tylenol Tab) 650 mg Q6H PRN PO .PAIN 1-3 OR TEMP Last admin istered on 10/15/18at 21:58; Admin Dose 650 MG; Start 10/12/18 at 22:30 Docusate Sodium (Colace) 100 mg Q12H PRN PO .CONSTIPATION; Start 10/12/18 at 22:30 Bisacodyl (Dulcolax) 5 mg DAILY PRN PO .CONSTIPATION; Start 10/12/18 at 22:30 Enoxaparin Sodium (Lovenox) 40 mg DAILY SC Last administered on 10/14/18 09:04; Admin Dose 40 MG; Start 10/13/18 at 09:00; Status Hold Docusate Sodium (Colace) 100 mg BID PO Last administered on 10/16/18 13:18; Admin Dose 100 MG; Start 10/13/18 at 02:30 Polyethylene Glycol (Miralax) 17 gm DAILY PO Last administered on 10/16/18 13:19; Admin Dose 17 GM; Start 10/13/18 at 02:30 Vancomycin HCl (Vanco Iv Per Pharmacy) VANCOMYCIN PER PHARMACY PER PROTOCOL XX ; Start 10/13/18 at 06:00 Simethicone (Mylicon) 80 mg QID PRN PO DISTENSION/GAS/BLOATING Last administered on 10/13/18 16:18; Admin Dose 80 MG; Start 10/13/18 at 16:00 Hydromorphone HCl (Dilaudid) 1 mg Q4H PRN IV SEVERE PAIN LEVEL 7-10 Last administered on 10/16/18 11:41; Admin Dose 1 MG; Start 10/14/18 at 12:30 Oseltamivir Phosphate (Tamiflu) 75 mg BID PO Last administered on 10/15/18 20:17; Admin Dose 75 MG; Start 10/15/18 at 09:00; Stop 10/20/18 at 08:59 Doxycycline Hyclate (Vibramycin) 100 mg BID PO Last administered on 10/16/18 13:18; Admin Dose 100 MG; Start 10/15/18 at 09:00; Stop 10/20/18 at 08:59 Meropenem/Sodium Chloride 50 ml @ 100 mls/hr Q8 IVPB Last administered on 10/16/18at 06:54; Admin Dose 100 MLS/HR; Start 10/15/18 at 21:00 Vancomycin HCl 250 ml @ 125 mls/hr Q8H IVPB Last administered on 10/16/18at 10:38; Admin Dose 125 MLS/HR; Start 10/15/18 at 19:00 Heparin Sodium (Porcine) (Heparin (5000 Units/1ml)) 5,000 unit BID SC Last administered on 10/15/18at 20:19; Admin Dose 5,000 UNIT; Start 10/15/18 at 21:00; Status Hold Voriconazole 350 mg/Sodium Chloride 150 ml @ 50 mls/hr Q12H IVPB Last administered on 10/16/18at 13:11; Admin Dose 50 MLS/HR; Start 10/16/18 at 12:30 RAKESH CASPER NP Oct 16, 2018 14:04
--- NOTE | 2018-10-16 14:34 | CONS ---
Assessment/Plan Assessment/Plan Assessment/Plan (Daily) 33 yo M with testicular cancer s/p chemotherapy with residual disease who presents with fever, cough, concern for sepsis secondary to underlying pneumonia. He is gradually improving. # sepsis 2/2 pneumonia - ID following, on broad spectrum antibiotics - follow-up cultures, no growth to date # seminoma s/p chemotherapy - CT neck/chest/abdomen/pelvis demonstrates enlarging adenopathy, hepatic me tastases and ascites and bilateral pleural effusions. - Appreciate surgical evaluation. A tissue biopsy will greatly aid his outpatient oncologist with further management decisions. He has completed 4 cycles of EP in April 2018 with tumor progression within 6 months. While this could be teratoma it may also be residual/resistent seminoma (or transformed testicular cancer) for which chemotherapy would be indicated. The selection of the chemotherapy regimen will depend on the final pathology. - can consider paracentesis for symptomatic relief - agree with pulmonary input for pleural effusions # anemia - s/p blood transfusion - likely secondary to underlying malignancy Thank you for allowing me to participate in this patient's care. Please call with further question or concerns cell, ) Natasha Owusu M.D. Consultation Date/Type/Reason Admit Date/Time Oct 12, 2018 at 21:37 Initial Consult Date 10/14/18 Type of Consult Hematology-Oncology Consult Requesting Provider: DARRYL VIVEROS NP Date/Time of Note DATE: 10/16/18 TIME: 14:20 24 HR Interval Summary Free Text/Dictation Symptomatically improved, less cough, fever curve downtrending. Exam/Review of Systems Exam Vitals Vital Signs Date Temp Pulse Resp B/P (MAP) Pulse Ox O2 O2 Flow FiO2 Time Delivery Rate 10/16/18 121 12:00 10/16/18 98.7 18 140/85 94 11:09 (103) 10/15/18 Room Air 15:28 Intake and Output 10/15/18 10/15/18 10/16/18 1515:00 23:00 07:00 IntakeIntake Total 850 ml 900 ml 980 ml BalanceBalance 850 ml 900 ml 980 ml Constitutional: alert, oriented, well developed Psych: nl mood/affect Head: normocephalic, atraumatic Eyes: EOMI, nl sclera ENMT: mucosa pink and moist Neck: supple Respiratory: clear to auscultation Cardiovascular: other (tachycardic) Gastrointestinal: non-tender, other (mildly distended) Extremities: other (no edema) Neurological: EARTH MOVER II-XII intact Lymph: other (left enlarged supraclavicular lymphadenopathy) Results Result Diagram: 10/16/18 0611 10/16/18 0611 Results 24hrs Laboratory Tests Test 10/16/18 06:11 White Blood Count 10.1 # Red Blood Count 3.63 L Hemoglobin 8.4 L Hematocrit 26.3 L Mean Corpuscular Volume 72.5 L Mean Corpuscular Hemoglobin 23.1 L Mean Corpuscular Hemoglobin Concent 31.9 L Red Cell Distribution Width 18.8 H Platelet Count 531 H Mean Platelet Volume 8.4 Immature Granulocytes % 0.700 H Neutrophils % 71.4 Lymphocytes % 16.8 Monocytes % 9.8 Eosinophils % 1.1 Basophils % 0.2 Nucleated Red Blood Cells % 0.0 Immature Granulocytes # 0.070 H Neutrophils # 7.2 Lymphocytes # 1.7 Monocytes # 1.0 H Eosinophils # 0.1 Basophils # 0.0 Nucleated Red Blood Cells # 0.0 Prothrombin Time 15.1 H Prothrombin Time Ratio 1.2 INR International Normalized Ratio 1.18 Activated Partial Thromboplast Time 40.8 H Sodium Level 143 Potassium Level 4.3 Chloride Level 105 Carbon Dioxide Level 28 Anion Gap 10 Blood Urea Nitrogen 8 Creatinine 0.83 Est Glomerular Filtrat Rate mL/min > 60 Glucose Level 82 Calcium Level 9.2 Total Bilirubin 0.1 L Direct Bilirubin 0.00 Indirect Bilirubin 0.1 Aspartate Amino Transf (AST/SGOT) 40 Alanine Aminotransferase (ALT/SGPT) 21 Alkaline Phosphatase 538 H Total Protein 8.0 Albumin 3.2 L Globulin 4.80 H Albumin/Globulin Ratio 0.66 Medications Medication Current Medications Amlodipine Besylate (Norvasc) 5 mg DAILY PO Last administered on 10/16/18at 13:19; Admin Dose 5 MG; Start 10/13/18 at 09:00 Acetaminophen/ Hydrocodone Bitart ([place] (5/325)) 1 tab Q6H PRN PO PAIN; Start 10/12/18 at 22:30 Metoprolol Succinate (Toprol Xl) 50 mg DAILY PO Last administered on 10/16/18at 13:19; Admin Dose 50 MG; Start 10/13/18 at 09:00 IV Flush (NS 3 ml) 3 ml PER PROTOCOL IV ; Start 10/12/18 at 22:30 Ondansetron HCl (Zofran Inj) 4 mg Q6H PRN IV NAUSEA/VOMITING; Start 10/12/18 at 22:30 Acetaminophen (Tylenol Tab) 650 mg Q6H PRN PO .PAIN 1-3 OR TEMP Last administered on 10/15/18 21:58; Admin Dose 650 MG; Start 10/12/18 at 22:30 Docusate Sodium (Colace) 100 mg Q12H PRN PO .CONSTIPATION; Start 10/12/18 at 22:30 Bisacodyl (Dulcolax) 5 mg DAILY PRN PO .CONSTIPATION; Start 10/12/18 at 22:30 Enoxaparin Sodium (Lovenox) 40 mg DAILY SC Last administered on 10/14/18 09:04; Admin Dose 40 MG; Start 10/13/18 at 09:00; Status Hold Docusate Sodium (Colace) 100 mg BID PO Last administered on 10/16/18 13:18; Admin Dose 100 MG; Start 10/13/18 at 02:30 Polyethylene Glycol (Miralax) 17 gm DAILY PO Last administered on 10/16/18 13:19; Admin Dose 17 GM; Start 10/13/18 at 02:30 Vancomycin HCl (Vanco Iv Per Pharmacy) VANCOMYCIN PER PHARMACY PER PROTOCOL XX ; Start 10/13/18 at 06:00 Simethicone (Mylicon) 80 mg QID PRN PO DISTENSION/GAS/BLOATING Last administered on 10/13/18 16:18; Admin Dose 80 MG; Start 10/13/18 at 16:00 Hydromorphone HCl (Dilaudid) 1 mg Q4H PRN IV SEVERE PAIN LEVEL 7-10 Last administered on 10/16/18 11:41; Admin Dose 1 MG; Start 10/14/18 at 12:30 Oseltamivir Phosphate (Tamiflu) 75 mg BID PO Last administered on 10/15/18 20:17; Admin Dose 75 MG; Start 10/15/18 at 09:00; Stop 10/20/18 at 08:59 Doxycycline Hyclate (Vibramycin) 100 mg BID PO Last administered on 10/16/18 13:18; Admin Dose 100 MG; Start 10/15/18 at 09:00; Stop 10/20/18 at 08:59 Meropenem/Sodium Chloride 50 ml @ 100 mls/hr Q8 IVPB Last administered on 10/16/18at 06:54; Admin Dose 100 MLS/HR; Start 10/15/18 at 21:00 Vancomycin HCl 250 ml @ 125 mls/hr Q8H IVPB Last administered on 10/16/18at 10:38; Admin Dose 125 MLS/HR; Start 10/15/18 at 19:00 Heparin Sodium (Porcine) (Heparin (5000 Units/1ml)) 5,000 unit BID SC Last administered on 10/15/18at 20:19; Admin Dose 5,000 UNIT; Start 10/15/18 at 21:00; Status Hold Voriconazole 350 mg/Sodium Chloride 150 ml @ 50 mls/hr Q12H IVPB Last administered on 10/16/18at 13:11; Admin Dose 50 MLS/HR; Start 10/16/18 at 12:30 NATASHA OWUSU MD Oct 16, 2018 14:34
--- NOTE | 2018-10-16 16:22 | PREAC ---
Date/Time of Note Date/Time of Note DATE: 10/16/18 TIME: 16:20 Anesthesia Eval and Record Evaluation Time Pre-Procedure Interview DATE: 10/16/18 TIME: 16:20 Age 33 Sex male NPO: 8 hrs Preoperative diagnosis Node Bx Planned procedure LEFT SUPRACLAVICULAR LYMPH NODE BIOSPY Past Medical History Past Medical History: Includes Cardio: HTN Endo: Other (TESTICULAR CA) Pulm: Other (PNEUMONIA) GI: Obesity Heme: Anemia Surgery & Anesthesia Issues No known issue Meds Anticoagulation: No Beta Rosanna within 24 hr: Yes Active Scripts Hydrocodone/Acetaminophen ([place] 5-325 Tablet) 1 Each Tablet, 1 TAB PO Q6H PRN for PAIN, #20 TAB Prov:KIN BUENO 09/12/18 Amlodipine Besylate* (Norvasc*) 5 Mg Tablet, 5 MG PO DAILY, #60 TAB Prov:HAFSA BARRERA 01/09/18 Metoprolol Succinate* (Toprol XL*) 50 Mg Tab.er.24h, 50 MG PO DAILY, #60 TAB Prov:HAFSA BARRERA 01/09/18 Reported Medications Hydromorphone Hcl* (Dilaudid*) 2 Mg Tablet, 2 MG PO Q3H PRN for PAIN, TAB 10/12/18 Amoxicillin/Potassium Clav (Amox-Clav 875-125 mg Tablet) 875-125 mg Tab, 1 TAB PO BID, #20 TAB 10/12/18 Methyl Salicylate/Menthol (Bengay Greaseless Cream) 57 Gm Cream..g., 57 GM TP 09/12/18 Hydrochlorothiazide* (Hydrochlorothiazide*) 12.5 Mg Tablet, 12.5 MG PO DAILY for 90 Days, #90 09/12/18 Discontinued Reported Medications Ibuprofen* (Ibuprofen*) 600 Mg Tablet, 600 MG PO Q8 PRN for PRN, TAB 01/05/18 Current Medications Amlodipine Besylate (Norvasc) 5 mg DAILY PO Last administered on 10/16/18at 13:19; Admin Dose 5 MG; Start 10/13/18 at 09:00 Acetaminophen/ Hydrocodone Bitart ([place] (5/325)) 1 tab Q6H PRN PO PAIN; Start 10/12/18 at 22:30 Metoprolol Succinate (Toprol Xl) 50 mg DAILY PO Last administered on 10/16/18at 13:19; Admin Dose 50 MG; Start 10/13/18 at 09:00 IV Flush (NS 3 ml) 3 ml PER PROTOCOL IV ; Start 10/12/18 at 22:30 Ondansetron HCl (Zofran Inj) 4 mg Q6H PRN IV NAUSEA/VOMITING; Start 10/12/18 at 22:30 Acetaminophen (Tylenol Tab) 650 mg Q6H PRN PO .PAIN 1-3 OR TEMP Last administered on 10/15/18at 21:58; Admin Dose 650 MG; Start 10/12/18 at 22:30 Docusate Sodium (Colace) 100 mg Q12H PRN PO .CONSTIPATION; Start 10/12/18 at 22:30 Bisacodyl (Dulcolax) 5 mg DAILY PRN PO .CONSTIPATION; Start 10/12/18 at 22:30 Enoxaparin Sodium (Lovenox) 40 mg DAILY SC Last administered on 10/14/18 09:04; Admin Dose 40 MG; Start 10/13/18 at 09:00; Status Hold Docusate Sodium (Colace) 100 mg BID PO Last administered on 10/16/18 13:18; Admin Dose 100 MG; Start 10/13/18 at 02:30 Polyethylene Glycol (Miralax) 17 gm DAILY PO Last administered on 10/16/18 13:19; Admin Dose 17 GM; Start 10/13/18 at 02:30 Vancomycin HCl (Vanco Iv Per Pharmacy) VANCOMYCIN PER PHARMACY PER PROTOCOL XX ; Start 10/13/18 at 06:00 Simethicone (Mylicon) 80 mg QID PRN PO DISTENSION/GAS/BLOATING Last administered on 10/13/18 16:18; Admin Dose 80 MG; Start 10/13/18 at 16:00 Hydromorphone HCl (Dilaudid) 1 mg Q4H PRN IV SEVERE PAIN LEVEL 7-10 Last administered on 10/16/18 15:46; Admin Dose 1 MG; Start 10/14/18 at 12:30 Oseltamivir Phosphate (Tamiflu) 75 mg BID PO Last administered on 10/16/18 15:32; Admin Dose 75 MG; Start 10/15/18 at 09:00; Stop 10/20/18 at 08:59 Doxycycline Hyclate (Vibramycin) 100 mg BID PO Last administered on 10/16/18at 13:18; Admin Dose 100 MG; Start 10/15/18 at 09:00; Stop 10/20/18 at 08:59 Meropenem/Sodium Chloride 50 ml @ 100 mls/hr Q8 IVPB Last administered on 10/16/18at 15:46; Admin Dose 100 MLS/HR; Start 10/15/18 at 21:00 Vancomycin HCl 250 ml @ 125 mls/hr Q8H IVPB Last administered on 10/16/18at 10:38; Admin Dose 125 MLS/HR; Start 10/15/18 at 19:00 Heparin Sodium (Porcine) (Heparin (5000 Units/1ml)) 5,000 unit BID SC Last administered on 10/15/18at 20:19; Admin Dose 5,000 UNIT; Start 10/15/18 at 21:00; Status Hold Voriconazole 350 mg/Sodium Chloride 150 ml @ 50 mls/hr Q12H IVPB Last administered on 10/16/18at 13:11; Admin Dose 50 MLS/HR; Start 10/16/18 at 12:30 Meds reviewed: Yes Allergies Coded Allergies: No Known Allergy (Unverified , 10/12/18) Allergies Reviewed: Yes Labs/Studies Labs Reviewed: Reviewed by anesthesiologist Result Diagram: 10/16/18 0611 10/16/18 0611 Laboratory Tests 10/16/18 06:11 test: N/A Studies: ECG (ST), CXR (Patchy left basilar infiltrate with a small left pleural effusion. Continued follow-up until resolution is suggested.) Pre-procedure Exam Last vitals Vital Signs Date Temp Pulse Resp B/P (MAP) Pulse Ox O2 O2 Flow FiO2 Time Delivery Rate 10/16/18 121 12:00 10/16/18 98.7 18 140/85 94 11:09 (103) 10/15/18 Room Air 15:28 Airway: Adequate mouth opening Mallampati: Mallampati II Teeth: Normal Lung: Normal Heart: Normal ASA Physical Status ASA physical status: 3 Emergency: None Planned Anesthetic General/MAC: ETT Pre-operative Attestations Prior to commencing anesthesia and surgery, the patient was re-evaluated, there was verification of: *The patient's identity *The results of appropriate recent lab work and preoperative vital signs *The above evaluation not changing prior to induction *Anesthetic plan, risk benefits, alternative and complications discussed with patient/family; questions answered; patient/family understands, accepts and wishes to proceed. LATISHA COELHO Oct 16, 2018 16:21
--- NOTE | 2018-10-16 16:35 | CONS ---
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 Recommendation: Will consult CT surgery Unclear of his overall prognosis as to how aggressive to be in going after this Would benefit from a tertiary center, where he could undergo cardiac MRI and possible tissue diagnosis Case d/w Dr. Noonan. Consultation Date/Type/Reason Admit Date/Time Oct 12, 2018 at 21:37 Type of Consult Cardiology Reason for Consultation tachycardia Requesting Provider: BENJAMIN NOONAN Date/Time of Note DATE: 10/16/18 TIME: 16:26 Hx of Present Illness 33 yo with metastatic prostate ca admitted with pneumonia, on admission was quite tachycardic, remains tachycardic but heart rate is less than when he came in. Chronically he feels palpitations when he lies flat, has had palpitations here in the hospital which he attributes to lying in bed for so much of the time. No prior cardiac issues. No chest pain. No dyspnea. Constitutional: no complaints Eyes: no complaints ENT: no complaints Respiratory: no complaints Cardiovascular: no complaints Gastrointestinal: no complaints Genitourinary: no complaints Musculoskeletal: no complaints Skin: no complaints Neurologic: no complaints Endocrine: no complaints Lymphatic: no complaints Psychological: no complaints Immunologic: no complaints Past Medical History Medical History: hypertension, other (metastatic testicular cancer) Home Meds Active Scripts Hydrocodone/Acetaminophen ([place] 5-325 Tablet) 1 Each Tablet, 1 TAB PO Q6H PRN for PAIN, #20 TAB Prov:KIN BUENO 09/12/18 Amlodipine Besylate* (Norvasc*) 5 Mg Tablet, 5 MG PO DAILY, #60 TAB Prov:HAFSA BARRERA 01/09/18 Metoprolol Succinate* (Toprol XL*) 50 Mg Tab.er.24h, 50 MG PO DAILY, #60 TAB Prov:HAFSA BARRERA 01/09/18 Reported Medications Hydromorphone Hcl* (Dilaudid*) 2 Mg Tablet, 2 MG PO Q3H PRN for PAIN, TAB 10/12/18 Amoxicillin/Potassium Clav (Amox-Clav 875-125 mg Tablet) 875-125 mg Tab, 1 TAB PO BID, #20 TAB 10/12/18 Methyl Salicylate/Menthol (B[place]ay Greaseless Cream) 57 Gm Cream..g., 57 GM TP 09/12/18 Hydrochlorothiazide* (Hydrochlorothiazide*) 12.5 Mg Tablet, 12.5 MG PO DAILY for 90 Days, #90 09/12/18 Discontinued Reported Medications Ibuprofen* (Ibuprofen*) 600 Mg Tablet, 600 MG PO Q8 PRN for PRN, TAB 01/05/18 Medications Current Medications Amlodipine Besylate (Norvasc) 5 mg DAILY PO Last administered on 10/16/18 13:19; Admin Dose 5 MG; Start 10/13/18 at 09:00 Acetaminophen/ Hydrocodone Bitart ([place] (5/325)) 1 tab Q6H PRN PO PAIN; Start 10/12/18 at 22:30 Metoprolol Succinate (Toprol Xl) 50 mg DAILY PO Last administered on 10/16/18 13:19; Admin Dose 50 MG; Start 10/13/18 at 09:00 IV Flush (NS 3 ml) 3 ml PER PROTOCOL IV ; Start 10/12/18 at 22:30 Ondansetron HCl (Zofran Inj) 4 mg Q6H PRN IV NAUSEA/VOMITING; Start 10/12/18 at 22:30 Acetaminophen (Tylenol Tab) 650 mg Q6H PRN PO .PAIN 1-3 OR TEMP Last administered on 10/15/18at 21:58; Admin Dose 650 MG; Start 10/12/18 at 22:30 Docusate Sodium (Colace) 100 mg Q12H PRN PO .CONSTIPATION; Start 10/12/18 at 22:30 Bisacodyl (Dulcolax) 5 mg DAILY PRN PO .CONSTIPATION; Start 10/12/18 at 22:30 Enoxaparin Sodium (Lovenox) 40 mg DAILY SC Last administered on 10/14/18at 09:04; Admin Dose 40 MG; Start 10/13/18 at 09:00; Status Hold Docusate Sodium (Colace) 100 mg BID PO Last administered on 10/16/18at 13:18; Admin Dose 100 MG; Start 10/13/18 at 02:30 Polyethylene Glycol (Miralax) 17 gm DAILY PO Last administered on 10/16/18 13 :19; Admin Dose 17 GM; Start 10/13/18 at 02:30 Vancomycin HCl (Vanco Iv Per Pharmacy) VANCOMYCIN PER PHARMACY PER PROTOCOL XX ; Start 10/13/18 at 06:00 Simethicone (Mylicon) 80 mg QID PRN PO DISTENSION/GAS/BLOATING Last administered on 10/13/18 16:18; Admin Dose 80 MG; Start 10/13/18 at 16:00 Hydromorphone HCl (Dilaudid) 1 mg Q4H PRN IV SEVERE PAIN LEVEL 7-10 Last administered on 10/16/18 15:46; Admin Dose 1 MG; Start 10/14/18 at 12:30 Oseltamivir Phosphate (Tamiflu) 75 mg BID PO Last administered on 10/16/18 15:32; Admin Dose 75 MG; Start 10/15/18 at 09:00; Stop 10/20/18 at 08:59 Doxycycline Hyclate (Vibramycin) 100 mg BID PO Last administered on 10/16/18 13:18; Admin Dose 100 MG; Start 10/15/18 at 09:00; Stop 10/20/18 at 08:59 Meropenem/Sodium Chloride 50 ml @ 100 mls/hr Q8 IVPB Last administered on 10/16/18 15:46; Admin Dose 100 MLS/HR; Start 10/15/18 at 21:00 Vancomycin HCl 250 ml @ 125 mls/hr Q8H IVPB Last administered on 10/16/18 10:38; Admin Dose 125 MLS/HR; Start 10/15/18 at 19:00 Heparin Sodium (Porcine) (Heparin (5000 Units/1ml)) 5,000 unit BID SC Last administered on 10/15/18 20:19; Admin Dose 5,000 UNIT; Start 10/15/18 at 21:00; Status Hold Voriconazole 350 mg/Sodium Chloride 150 ml @ 50 mls/hr Q12H IVPB Last administered on 10/16/18 13:11; Admin Dose 50 MLS/HR; Start 10/16/18 at 12:30 Allergies: Coded Allergies: No Known Allergy (Unverified , 10/12/18) Past Surgical History Past Surgical Hx: other (s/p placement of L ureteral JJ stent in 01/2018) Social History Alcohol Use: none Smoking Status: Never smoker Drug Use: none Exam/Review of Systems Vital Signs Vitals Vital Signs Date Temp Pulse Resp B/P (MAP) Pulse Ox O2 O2 Flow FiO2 Time Delivery Rate 10/16/18 98.7 129 18 134/87 95 16:21 (103) 10/15/18 Room Air 15:28 Intake and Output 10/15/18 10/15/18 10/16/18 1515:00 23:00 07:00 IntakeIntake Total 850 ml 900 ml 980 ml BalanceBalance 850 ml 900 ml 980 ml Exam Constitutional: alert, oriented, well developed Psych: nl mood/affect Head: normocephalic, atraumatic Eyes: nl conjunctiva, EOMI, nl lids, nl sclera ENMT: nl external ears & nose, nl lips & teeth, nl nasal mucosa & septum Neck: supple, non-tender Respiratory: clear to auscultation, normal air movement Cardiovascular: regular rate and rhythm, nl pulses; No murmurs/extra sounds Gastrointestinal: soft, nl liver, spleen, non-tender Musculoskeletal: nl extremities to inspection Extremities: normal pulses Neurological: nl mental status, nl speech Skin: No rash or lesions Lymph: nl lymph nodes Labs Result Diagram: 10/16/18 0611 10/16/18 0611 Results 24hrs Laboratory Tests Test 10/16/18 06:11 White Blood Count 10.1 # Red Blood Count 3.63 L Hemoglobin 8.4 L Hematocrit 26.3 L Mean Corpuscular Volume 72.5 L Mean Corpuscular Hemoglobin 23.1 L Mean Corpuscular Hemoglobin Concent 31.9 L Red Cell Distribution Width 18.8 H Platelet Count 531 H Mean Platelet Volume 8.4 Immature Granulocytes % 0.700 H Neutrophils % 71.4 Lymphocytes % 16.8 Monocytes % 9.8 Eosinophils % 1.1 Basophils % 0.2 Nucleated Red Blood Cells % 0.0 Immature Granulocytes # 0.070 H Neutrophils # 7.2 Lymphocytes # 1.7 Monocytes # 1.0 H Eosinophils # 0.1 Basophils # 0.0 Nucleated Red Blood Cells # 0.0 Prothrombin Time 15.1 H Prothrombin Time Ratio 1.2 INR International Normalized Ratio 1.18 Activated Partial Thromboplast Time 40.8 H Sodium Level 143 Potassium Level 4.3 Chloride Level 105 Carbon Dioxide Level 28 Anion Gap 10 Blood Urea Nitrogen 8 Creatinine 0.83 Est Glomerular Filtrat Rate mL/min > 60 Glucose Level 82 Calcium Level 9.2 Total Bilirubin 0.1 L Direct Bilirubin 0.00 Indirect Bilirubin 0.1 Aspartate Amino Transf (AST/SGOT) 40 Alanine Aminotransferase (ALT/SGPT) 21 Alkaline Phosphatase 538 H Total Protein 8.0 Albumin 3.2 L Globulin 4.80 H Albumin/Globulin Ratio 0.66 Imaging Imaging EKG on admission 10/12/2018 shows sinus tachycardia at 143 bpm, otherwise a normal ekg. Repeat EKG yesterday shows sinus tachycardia at 125 bpm. Telemetry revie mon, heart rate goes as high as 152 bpm. Medications Medications Current Medications Amlodipine Besylate (Norvasc) 5 mg DAILY PO Last administered on 10/16/18 13:19; Admin Dose 5 MG; Start 10/13/18 at 09:00 Acetaminophen/ Hydrocodone Bitart ([place] (5/325)) 1 tab Q6H PRN PO PAIN; Start 10/12/18 at 22:30 Metoprolol Succinate (Toprol Xl) 50 mg DAILY PO Last administered on 10/16/18 13:19; Admin Dose 50 MG; Start 10/13/18 at 09:00 IV Flush (NS 3 ml) 3 ml PER PROTOCOL IV ; Start 10/12/18 at 22:30 Ondansetron HCl (Zofran Inj) 4 mg Q6H PRN IV NAUSEA/VOMITING; Start 10/12/18 at 22:30 Acetaminophen (Tylenol Tab) 650 mg Q6H PRN PO .PAIN 1-3 OR TEMP Last administered on 10/15/18at 21:58; Admin Dose 650 MG; Start 10/12/18 at 22:30 Docusate Sodium (Colace) 100 mg Q12H PRN PO .CONSTIPATION; Start 10/12/18 at 22:30 Bisacodyl (Dulcolax) 5 mg DAILY PRN PO .CONSTIPATION; Start 10/12/18 at 22:30 Enoxaparin Sodium (Lovenox) 40 mg DAILY SC Last administered on 10/14/18 09:04; Admin Dose 40 MG; Start 10/13/18 at 09:00; Status Hold Docusate Sodium (Colace) 100 mg BID PO Last administered on 10/16/18 13:18; Admin Dose 100 MG; Start 10/13/18 at 02:30 Polyethylene Glycol (Miralax) 17 gm DAILY PO Last administered on 10/16/18 13:19; Admin Dose 17 GM; Start 10/13/18 at 02:30 Vancomycin HCl (Vanco Iv Per Pharmacy) VANCOMYCIN PER PHARMACY PER PROTOCOL XX ; Start 10/13/18 at 06:00 Simethicone (Mylicon) 80 mg QID PRN PO DISTENSION/GAS/BLOATING Last administered on 10/13/18 16:18; Admin Dose 80 MG; Start 10/13/18 at 16:00 Hydromorphone HCl (Dilaudid) 1 mg Q4H PRN IV SEVERE PAIN LEVEL 7-10 Last administered on 10/16/18 15:46; Admin Dose 1 MG; Start 10/14/18 at 12:30 Oseltamivir Phosphate (Tamiflu) 75 mg BID PO Last administered on 10/16/18 15 :32; Admin Dose 75 MG; Start 10/15/18 at 09:00; Stop 10/20/18 at 08:59 Doxycycline Hyclate (Vibramycin) 100 mg BID PO Last administered on 10/16/18 13:18; Admin Dose 100 MG; Start 10/15/18 at 09:00; Stop 10/20/18 at 08:59 Meropenem/Sodium Chloride 50 ml @ 100 mls/hr Q8 IVPB Last administered on 10/16/18 15:46; Admin Dose 100 MLS/HR; Start 10/15/18 at 21:00 Vancomycin HCl 250 ml @ 125 mls/hr Q8H IVPB Last administered on 10/16/18 10:38; Admin Dose 125 MLS/HR; Start 10/15/18 at 19:00 Heparin Sodium (Porcine) (Heparin (5000 Units/1ml)) 5,000 unit BID SC Last administered on 10/15/18 20:19; Admin Dose 5,000 UNIT; Start 10/15/18 at 21:00; Status Hold Voriconazole 350 mg/Sodium Chloride 150 ml @ 50 mls/hr Q12H IVPB Last administered on 10/16/18 13:11; Admin Dose 50 MLS/HR; Start 10/16/18 at 12:30 KEM SMALL Oct 16, 2018 16:34
--- NOTE | 2018-10-16 16:54 | RADRPT ---
Echocardiogram Report Patient Name: Lu ORELLANA ID: [id number] : 1985 (33y 5m)Study Date: 10/16/2018 7:55:50 AM Gender: Monserratcession #: [id number] Tech: [place] Location: Ref.Physician: BENJAMIN NOONAN Height(Cm): BSA: Weight(Kg): Quality: AdequateAccount #: Procedures: Echocardiographic Report: Transthoracic echocardiogram with complete 2D, M-Mode, and doppler examination. Indications: Tachycardia. Measurements: 2D/M Mode Doppler Measurement Value Normal Range Measurement Value Normal Range LVIDd 2D 4.3 [ 4.2 - 5.8 ] cm AV Peak Mert 1.5 [ 100.0 - 170.0 ] cm/sec LVIDs 2D 3.2 [ 2.5 - 4.0 ] cm AV Peak PG 9.0 [ 2.0 - 9.0 ] mmHg LVPWd 2D 0.9 [ 0.6 - 1.0 ] cm LVOT Peak Mert 1.1 [ 70.0 - 110.0 ] cm/sec IVSd 2D 0.9 [ 0.6 - 1.0 ] cm LVOT Peak PG 5.0 [ 2.0 - 6.0 ] mmHg AoR Diam 2D 3.2 [ 2.6 - 3.4 ] cm TR Peak Mert 2.2 [ 100.0 - 280.0 ] cm/sec EDV 2D 82.6 [ 62.0 - 150.0 ] ml TR Peak PG 19.0 mmHg ESV 2D 40.0 [ 21.0 - 61.0 ] ml RVSP 22.0 [ 10.0 - 36.0 ] mmHg EF 2D 51.6 [ 52.0 - 72.0 ] percent RA Pressure 3.0 mmHg LA Dimen 2D 2.3 [ 3.0 - 4.0 ] cm Findings: Left Ventricle: Normal left ventricular systolic function. Normal left ventricular cavity size. Normal left ventricular wall thickness. Ejection fraction is visually estimated at 55 %. Tissue Doppler/Mitral Doppler indices are indeterminate in this study due to the presence of tachycardia. Right Ventricle: Normal right ventricular size. Normal right ventricular systolic function. Left Atrium: The left atrium is normal in size. Left atrial thrombus seen. The left atrium is normal in size. There is a mass adherent to the lateral wall of the left atrium that is mobile. Right Atrium: The right atrium is normal in size. Mitral Valve: Normal appearance and function of the mitral valve with trace physiologic regurgitation. Aortic Valve: Normal appearance of the aortic valve. No significant aortic stenosis or insufficiency. Tricuspid Valve: Normal appearance of the tricuspid valve. Estimated peak PA systolic pressure 22 mmHg. There is trace tricuspid regurgitation. Pulmonic Valve: Normal pulmonic valve appearance. Pericardium: Trivial pericardial effusion. Aorta: Normal aortic root. IVC: Normal size and normal respiratory collapse consistent with normal right atrial pressure. Conclusions: Normal left ventricular systolic function. Large left atrial mass measuring 2.5 x 2.9 cm. Trace tricuspid regurgitation with normal pulmonary pressures. Trivial sized pericardial effusion. Electronically Signed By: Vernell Morales 2018-10-16 16:53:37 PDT
--- NOTE | 2018-10-16 19:24 | PN ---
Date/Time of Note Date/Time of Note DATE: 10/16/18 TIME OF EVALUATION: 09:19 Assessment/Plan VTE Prophylaxis Risk score (from Ns)>0 risk: 3 SCD applied (from Ns): Yes Pharmacological prophylaxis: heparin Lines/Catheters IV Catheter Type (from Nrs): Saline Lock Assessment/Plan Hospital Course S: still feeling quite bloated, remains tachy, fever seems to be improving tells me tachycardia has been going on since before fevers started. Has an apple watch that tells him his HR, usually ranges in 120s-130s NPO at this time for surgical biopsy of lymph node O: Constitutional: alert, oriented, no distress Head: atraumatic, normocephalic Neck: non-tender, supple, palpable and visible lymphadenopathy L >>R Respiratory: clear to auscultation, diminished with occ exp wheezing Cardiovascular: tachycardia Gastrointestinal: S/ NT /mildly distended / +BS Extremities: no edema, good radial pulses assessment and plan: 33 yo M with history of pure seminoma with pelvic, perianal, retroperitoneal, perirenal, mediastinal, supraclavicular metastases who presented with fevers, cough and tachycardia. He is being admitted for sepsis 2/2 Pneumonia. He is currently managed as follows : 1. Sepsis likely 2/2 bilateral pneumonia (HCAP) -ID managing abx 2. 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 -Patient also with malignant pleural effusion with associated lung collapse and malignant ascites (not tense) -appreciate oncology review and recs -will get pulm consult as well -paracentesis? 3. severe iron deficiency anemia -likely 2/2 metastatic cancer, s/p 2 units PRBC 4. Tachycardia -less likely 2/2 sepsis based on new hx -cardio consult, BB ? -f/u echo findings 5. s/p TAMARA -likely prerenal from anemia, improved 6. chronic HTN -controlled on current meds -titrate as indicated dispo: -surgical biospy today -thoracentesis and paracentesis for bloating ? -add BB ? await cardio recs -continue abx per ID -needs to be at least 24hr fever free before considering discharge, other plans as above -continue supportive care . Result Diagram: 10/16/18 0611 10/16/18 0611 Results 24hrs Laboratory Tests Test 10/16/18 06:11 White Blood Count 10.1 # Red Blood Count 3.63 L Hemoglobin 8.4 L Hematocrit 26.3 L Mean Corpuscular Volume 72.5 L Mean Corpuscular Hemoglobin 23.1 L Mean Corpuscular Hemoglobin Concent 31.9 L Red Cell Distribution Width 18.8 H Platelet Count 531 H Mean Platelet Volume 8.4 Immature Granulocytes % 0.700 H Neutrophils % 71.4 Lymphocytes % 16.8 Monocytes % 9.8 Eosinophils % 1.1 Basophils % 0.2 Nucleated Red Blood Cells % 0.0 Immature Granulocytes # 0.070 H Neutrophils # 7.2 Lymphocytes # 1.7 Monocytes # 1.0 H Eosinophils # 0.1 Basophils # 0.0 Nucleated Red Blood Cells # 0.0 Prothrombin Time 15.1 H Prothrombin Time Ratio 1.2 INR International Normalized Ratio 1.18 Activated Partial Thromboplast Time 40.8 H Sodium Level 143 Potassium Level 4.3 Chloride Level 105 Carbon Dioxide Level 28 Anion Gap 10 Blood Urea Nitrogen 8 Creatinine 0.83 Est Glomerular Filtrat Rate mL/min > 60 Glucose Level 82 Calcium Level 9.2 Total Bilirubin 0.1 L Direct Bilirubin 0.00 Indirect Bilirubin 0.1 Aspartate Amino Transf (AST/SGOT) 40 Alanine Aminotransferase (ALT/SGPT) 21 Alkaline Phosphatase 538 H Total Protein 8.0 Albumin 3.2 L Globulin 4.80 H Albumin/Globulin Ratio 0.66 Exam/Review of Systems Exam Vitals Vital Signs Date Temp Pulse Resp B/P (MAP) Pulse Ox O2 O2 Flow FiO2 Time Delivery Rate 10/16/18 98.7 129 18 134/87 95 16:21 (103) 10/15/18 Room Air 15:28 Intake and Output 10/15/18 10/15/18 10/16/18 1515:00 23:00 07:00 IntakeIntake Total 850 ml 900 ml 980 ml BalanceBalance 850 ml 900 ml 980 ml Results Results 24hrs Laboratory Tests Test 10/16/18 06:11 White Blood Count 10.1 # Red Blood Count 3.63 L Hemoglobin 8.4 L Hematocrit 26.3 L Mean Corpuscular Volume 72.5 L Mean Corpuscular Hemoglobin 23.1 L Mean Corpuscular Hemoglobin Concent 31.9 L Red Cell Distribution Width 18.8 H Platelet Count 531 H Mean Platelet Volume 8.4 Immature Granulocytes % 0.700 H Neutrophils % 71.4 Lymphocytes % 16.8 Monocytes % 9.8 Eosinophils % 1.1 Basophils % 0.2 Nucleated Red Blood Cells % 0.0 Immature Granulocytes # 0.070 H Neutrophils # 7.2 Lymphocytes # 1.7 Monocytes # 1.0 H Eosinophils # 0.1 Basophils # 0.0 Nucleated Red Blood Cells # 0.0 Prothrombin Time 15.1 H Prothrombin Time Ratio 1.2 INR International Normalized Ratio 1.18 Activated Partial Thromboplast Time 40.8 H Sodium Level 143 Potassium Level 4.3 Chloride Level 105 Carbon Dioxide Level 28 Anion Gap 10 Blood Urea Nitrogen 8 Creatinine 0.83 Est Glomerular Filtrat Rate mL/min > 60 Glucose Level 82 Calcium Level 9.2 Total Bilirubin 0.1 L Direct Bilirubin 0.00 Indirect Bilirubin 0.1 Aspartate Amino Transf (AST/SGOT) 40 Alanine Aminotransferase (ALT/SGPT) 21 Alkaline Phosphatase 538 H Total Protein 8.0 Albumin 3.2 L Globulin 4.80 H Albumin/Globulin Ratio 0.66 Medications Medication Current Medications Amlodipine Besylate (Norvasc) 5 mg DAILY PO Last administered on 10/16/18at 13:19; Admin Dose 5 MG; Start 10/13/18 at 09:00 Acetaminophen/ Hydrocodone Bitart ([place] (5/325)) 1 tab Q6H PRN PO PAIN; Start 10/12/18 at 22:30 Metoprolol Succinate (Toprol Xl) 50 mg DAILY PO Last administered on 10/16/18at 13:19; Admin Dose 50 MG; Start 10/13/18 at 09:00 IV Flush (NS 3 ml) 3 ml PER PROTOCOL IV ; Start 10/12/18 at 22:30 Ondansetron HCl (Zofran Inj) 4 mg Q6H PRN IV NAUSEA/VOMITING; Start 10/12/18 at 22:30 Acetaminophen (Tylenol Tab) 650 mg Q6H PRN PO .PAIN 1-3 OR TEMP Last administered on 10/15/18at 21:58; Admin Dose 650 MG; Start 10/12/18 at 22:30 Docusate Sodium (Colace) 100 mg Q12H PRN PO .CONSTIPATION; Start 10/12/18 at 22:30 Bisacodyl (Dulcolax) 5 mg DAILY PRN PO .CONSTIPATION; Start 10/12/18 at 22:30 Enoxaparin Sodium (Lovenox) 40 mg DAILY SC Last administered on 10/14/18 09:04; Admin Dose 40 MG; Start 10/13/18 at 09:00; Status Hold Docusate Sodium (Colace) 100 mg BID PO Last administered on 10/16/18 13:18; Admin Dose 100 MG; Start 10/13/18 at 02:30 Polyethylene Glycol (Miralax) 17 gm DAILY PO Last administered on 10/16/18 13:19; Admin Dose 17 GM; Start 10/13/18 at 02:30 Vancomycin HCl (Vanco Iv Per Pharmacy) VANCOMYCIN PER PHARMACY PER PROTOCOL XX ; Start 10/13/18 at 06:00 Simethicone (Mylicon) 80 mg QID PRN PO DISTENSION/GAS/BLOATING Last administered on 10/13/18 16:18; Admin Dose 80 MG; Start 10/13/18 at 16:00 Hydromorphone HCl (Dilaudid) 1 mg Q4H PRN IV SEVERE PAIN LEVEL 7-10 Last adm inistered on 10/16/18 15:46; Admin Dose 1 MG; Start 10/14/18 at 12:30 Oseltamivir Phosphate (Tamiflu) 75 mg BID PO Last administered on 10/16/18 15:32; Admin Dose 75 MG; Start 10/15/18 at 09:00; Stop 10/20/18 at 08:59 Doxycycline Hyclate (Vibramycin) 100 mg BID PO Last administered on 10/16/18 13:18; Admin Dose 100 MG; Start 10/15/18 at 09:00; Stop 10/20/18 at 08:59 Meropenem/Sodium Chloride 50 ml @ 100 mls/hr Q8 IVPB Last administered on 10/16/18 15:46; Admin Dose 100 MLS/HR; Start 10/15/18 at 21:00 Vancomycin HCl 250 ml @ 125 mls/hr Q8H IVPB Last administered on 10/16/18 18:35; Admin Dose 125 MLS/HR; Start 10/15/18 at 19:00 Heparin Sodium (Porcine) (Heparin (5000 Units/1ml)) 5,000 unit BID SC Last administered on 10/15/18at 20:19; Admin Dose 5,000 UNIT; Start 10/15/18 at 21:00; Status Hold Voriconazole 350 mg/Sodium Chloride 150 ml @ 50 mls/hr Q12H IVPB Last administered on 10/16/18at 13:11; Admin Dose 50 MLS/HR; Start 10/16/18 at 12:30 BENJAMIN NOONAN Oct 16, 2018 19:23
[2018-10-17] VITALS (19 sets, daily range): BP systolic 116–149; BP diastolic 75–92; PULSE 108–129; RESP 17–28
[2018-10-17] MEDS: HYDROmorphONE 1 MG/ML SYG IV PRN ×5 (01:12→23:00)
[2018-10-17] MEDS: ACETAMINOPHEN 325 MG TAB PO PRN (01:20)
[2018-10-17] MEDS: VANCOMYCIN 1 GM 250 ML IVPB SCH ×3 (03:11→20:35)
[2018-10-17] MEDS: MEROPENEM 1 GM/50ML(PMX) 50 ML IVPB SCH ×3 (05:54→23:03)
[2018-10-17] MEDS ORDERED: LIDOCAINE 2% (SDV) 5 ML INJ ONE (07:00)
[2018-10-17] MEDS ORDERED: PROPOFOL 200 MG INJ ONE (07:00)
[2018-10-17] MEDS: DOCUSATE SODIUM 100 MG CAP PO SCH ×2 (08:19→20:36)
[2018-10-17] MEDS: POLYETHYLENE GLYCOL 17 GM PACKET PO SCH (08:19)
[2018-10-17] MEDS: METOPROLOL (XL) 50 MG TAB PO SCH (08:20)
[2018-10-17] MEDS: AMLODIPINE 5 MG TAB PO SCH (08:20)
[2018-10-17] MEDS: OSELTAMIVIR 75 MG CAP PO SCH ×2 (08:20→20:36)
[2018-10-17] MEDS: DOXYCYCLINE 100 MG TAB PO SCH ×2 (08:21→20:36)
--- NOTE | 2018-10-17 09:20 | CONS ---
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 Patient also has hypertension. Recommendation: CT surgery consulted Case discussed with Dr. Estrada, the oncologist covering for Dr. Micky Adrian, the patient's usual oncologist. He agrees with plan for transfer for further workup of cardiac mass, he and his group do not have privileges at any of the tertiary centers. Would benefit from a tertiary center, where he could undergo cardiac MRI and possible tissue diagnosis and cardio-oncology specialty consultation D/w Dr. Francois, and will d/w case management Pt refusing amlodipine for hypertension, will observe for now 40 min spent in seeing patient and coordinating care Consultation Date/Type/Reason Admit Date/Time Oct 12, 2018 at 21:37 Initial Consult Date 10/16/18 Type of Consult Cardiology Requesting Provider: BENJAMIN NOONAN Date/Time of Note DATE: 10/17/18 TIME: 09:13 24 HR Interval Summary Free Text/Dictation Patient upset regarding news of left atrial mass. Does not feel palpitations. Will be having a lymph node biopsy today. Covering oncologist for Dr. Adrian is Dr Estrada [phone], who I spoke with today. Exam/Review of Systems Vital Signs Vitals Vital Signs Date Temp Pulse Resp B/P (MAP) Pulse Ox O2 O2 Flow FiO2 Time Delivery Rate 10/17/18 98.5 116 19 140/91 98 07:49 (107) 10/15/18 Room Air 15:28 Intake and Output 10/16/18 10/16/18 10/17/18 1515:00 23:00 07:00 IntakeIntake Total 250 ml 870 ml 930 ml BalanceBalance 250 ml 870 ml 930 ml Exam Constitutional: alert, oriented, well developed Psych: no complaints, nl mood/affect Head: normocephalic, atraumatic Eyes: nl lids, nl sclera ENMT: nl external ears & nose Neck: supple Respiratory: clear to auscultation, normal air movement Cardiovascular: regular rate and rhythm, other (tachycardic); No murmurs/extra sounds Musculoskeletal: nl extremities to inspection Neurological: nl mental status, nl speech Skin: nl turgor Labs Result Diagram: 10/16/1861010/16/18 0611 Medications Medications Current Medications Amlodipine Besylate (Norvasc) 5 mg DAILY PO Last administered on 10/16/18 13:19; Admin Dose 5 MG; Start 10/13/18 at 09:00 Acetaminophen/ Hydrocodone Bitart ([place] (5/325)) 1 tab Q6H PRN PO PAIN; Start 10/12/18 at 22:30 Metoprolol Succinate (Toprol Xl) 50 mg DAILY PO Last administered on 10/16/18at 13:19; Admin Dose 50 MG; Start 10/13/18 at 09:00 IV Flush (NS 3 ml) 3 ml PER PROTOCOL IV ; Start 10/12/18 at 22:30 Ondansetron HCl (Zofran Inj) 4 mg Q6H PRN IV NAUSEA/VOMITING; Start 10/12/18 at 22:30 Acetaminophen (Tylenol Tab) 650 mg Q6H PRN PO .PAIN 1-3 OR TEMP Last administered on 10/17/18at 01:20; Admin Dose 650 MG; Start 10/12/18 at 22:30 Docusate Sodium (Colace) 100 mg Q12H PRN PO .CONSTIPATION; Start 10/12/18 at 22:30 Bisacodyl (Dulcolax) 5 mg DAILY PRN PO .CONSTIPATION; Start 10/12/18 at 22:30 Enoxaparin Sodium (Lovenox) 40 mg DAILY SC Last administered on 10/14/18at 09:04; Admin Dose 40 MG; Start 10/13/18 at 09:00; Status Hold Docusate Sodium (Colace) 100 mg BID PO Last administered on 10/16/18at 13:18; Admin Dose 100 MG; Start 10/13/18 at 02:30 Polyethylene Glycol (Miralax) 17 gm DAILY PO Last administered on 10/16/18 13:19; Admin Dose 17 GM; Start 10/13/18 at 02:30 Vancomycin HCl (Vanco Iv Per Pharmacy) VANCOMYCIN PER PHARMACY PER PROTOCOL XX ; Start 10/13/18 at 06:00 Simethicone (Mylicon) 80 mg QID PRN PO DISTENSION/GAS/BLOATING Last administered on 10/16/18at 23:47; Admin Dose 80 MG; Start 10/13/18 at 16:00 Hydromorphone HCl (Dilaudid) 1 mg Q4H PRN IV SEVERE PAIN LEVEL 7-10 Last administered on 10/17/18 05:12; Admin Dose 1 MG; Start 10/14/18 at 12:30 Oseltamivir Phosphate (Tamiflu) 75 mg BID PO Last administered on 10/16/18 21:02; Admin Dose 75 MG; Start 10/15/18 at 09:00; Stop 10/20/18 at 08:59 Doxycycline Hyclate (Vibramycin) 100 mg BID PO Last administered on 10/16/18 21:02; Admin Dose 100 MG; Start 10/15/18 at 09:00; Stop 10/20/18 at 08:59 Meropenem/Sodium Chloride 50 ml @ 100 mls/hr Q8 IVPB Last administered on 10/17/18 05:54; Admin Dose 100 MLS/HR; Start 10/15/18 at 21:00 Vancomycin HCl 250 ml @ 125 mls/hr Q8H IVPB Last administered on 10/17/18 03:11; Admin Dose 125 MLS/HR; Start 10/15/18 at 19:00 Heparin Sodium (Porcine) (Heparin (5000 Units/1ml)) 5,000 unit BID SC Last administered on 10/15/18 20:19; Admin Dose 5,000 UNIT; Start 10/15/18 at 21:00; Status Hold Voriconazole 350 mg/Sodium Chloride 150 ml @ 50 mls/hr Q12H IVPB Last administered on 10/16/18 23:38; Admin Dose 50 MLS/HR; Start 10/16/18 at 12:30 KEM SMALL Oct 17, 2018 09:20
--- NOTE | 2018-10-17 11:13 | CONS ---
Assessment/Plan Assessment/Plan Assessment/Plan (Daily) Assessment recommendations; 1. Patient admitted with shortness of breath due to possible underlying malignancy possibly lymphoma with significant cervical supraclavicular mediastinal and retroperitoneal adenopathy. Patient with history of seminoma status post chemotherapy last year. Possibly recurrence of seminoma. 2. Left lower lobe pneumonia likely postobstructive in etiology from external compression. 3. Small bilateral pleural effusions. Continue current supportive care. Patient scheduled for lymph node biopsy. Further recommendations once biopsy results are obtained. Patient possibly also could be transferred to tertiary care center for further care. Consultation Date/Type/Reason Admit Date/Time Oct 12, 2018 at 21:37 Initial Consult Date 10/16/18 Type of Consult Pulmonary Pulmonary consult requested for evaluation of left lower lobe infiltrate as well as pleural effusions. Patient is a pleasant 33-year-old male who was admitted to the hospital with complaints of fever as well as fast heart rate. Upon further evaluation chest x-ray was done as well as CT scan of the chest which is showing left lower lobe consolidation with significant mediastinal as well as abdominal adenopathy with left lower lobe consolidation and bilateral pleural effusions. Patient currently is awaiting left cervical lymph node biopsy today. He denies any shortness of breath at rest, any coughing, sputum production hemoptysis or any further fever. Past medical history; next 1. 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 Status post excision as well as chemotherapy which she finished April of last year. According to the patient the tumor did go into complete remission however over the last few months the patient is again having progressive clinical downhill course with weight loss, fever, severe back pain. Medications; reviewed. Allergies; none. Social history; noncontributory. Family history; patient , has supportive . No show any malignancy in the family. 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 Review of systems; denies any headache, seizures, visual changes. Any sinus symptoms. Denies any chest pain. Still complains of back pain. Denies any dysphagia. Any coughing, sputum production or wheezing. Denies any further fever. Denies any abdominal pain, nausea vomiting. Any melena or hematochezia. He has lost 40 pounds over the last few months. Denies any skin rash. Denies any orthopnea. Any urinary symptoms. General exam; young male, awake alert, currently in no distress. Requesting Provider: BENJAMIN NOONAN Date/Time of Note DATE: 10/17/18 TIME: 11:11 24 HR Interval Summary Free Text/Dictation Patient's overall condition is stable. Scheduled for left cervical lymph node biopsy today. General exam; young male, awake alert, currently no distress. Exam/Review of Systems Exam Vitals Vital Signs Date Temp Pulse Resp B/P (MAP) Pulse Ox O2 O2 Flow FiO2 Time Delivery Rate 10/17/18 117 08:01 10/17/18 98.5 19 140/91 98 07:49 (107) 10/15/18 Room Air 15:28 Intake and Output 10/16/18 10/16/18 10/17/18 1414:59 22:59 06:59 IntakeIntake Total 250 ml 870 ml 930 ml BalanceBalance 250 ml 870 ml 930 ml Exam H EENT exam; supple neck, significant left cervical and supraclavicular lymphadenopathy. Patient has fair dentition. Chest exam; diminished breath sound lung bases. Upper lobes are clear. S1-S2 audible, no murmurs. Regular rhythm. Abdomen exam; soft, no organomegaly. Bowel sounds audible. Extremity exam; no peripheral edema. TONSORIAL ARTIST exam; focal deficit. Results Result Diagram: 10/16/18 0611 10/16/18 0611 Medications Medication Current Medications Amlodipine Besylate (Norvasc) 5 mg DAILY PO Last administered on 10/16/18at 13:19; Admin Dose 5 MG; Start 10/13/18 at 09:00 Acetaminophen/ Hydrocodone Bitart ([place] (5/325)) 1 tab Q6H PRN PO PAIN; Start 10/12/18 at 22:30 Metoprolol Succinate (Toprol Xl) 50 mg DAILY PO Last administered on 10/16/18at 13:19; Admin Dose 50 MG; Start 10/13/18 at 09:00 IV Flush (NS 3 ml) 3 ml PER PROTOCOL IV ; Start 10/12/18 at 22:30 Ondansetron HCl (Zofran Inj) 4 mg Q6H PRN IV NAUSEA/VOMITING; Start 10/12/18 at 22:30 Acetaminophen (Tylenol Tab) 650 mg Q6H PRN PO .PAIN 1-3 OR TEMP Last administered on 10/17/18 01:20; Admin Dose 650 MG; Start 10/12/18 at 22:30 Docusate Sodium (Colace) 100 mg Q12H PRN PO .CONSTIPATION; Start 10/12/18 at 22:30 Bisacodyl (Dulcolax) 5 mg DAILY PRN PO .CONSTIPATION; Start 10/12/18 at 22:30 Enoxaparin Sodium (Lovenox) 40 mg DAILY SC Last administered on 10/14/18 09:04; Admin Dose 40 MG; Start 10/13/18 at 09:00; Status Hold Docusate Sodium (Colace) 100 mg BID PO Last administered on 10/16/18 13:18; Admin Dose 100 MG; Start 10/13/18 at 02:30 Polyethylene Glycol (Miralax) 17 gm DAILY PO Last administered on 10/16/18 13 :19; Admin Dose 17 GM; Start 10/13/18 at 02:30 Vancomycin HCl (Vanco Iv Per Pharmacy) VANCOMYCIN PER PHARMACY PER PROTOCOL XX ; Start 10/13/18 at 06:00 Simethicone (Mylicon) 80 mg QID PRN PO DISTENSION/GAS/BLOATING Last administered on 10/16/18 23:47; Admin Dose 80 MG; Start 10/13/18 at 16:00 Hydromorphone HCl (Dilaudid) 1 mg Q4H PRN IV SEVERE PAIN LEVEL 7-10 Last administered on 10/17/18 09:53; Admin Dose 1 MG; Start 10/14/18 at 12:30 Oseltamivir Phosphate (Tamiflu) 75 mg BID PO Last administered on 10/16/18 21:02; Admin Dose 75 MG; Start 10/15/18 at 09:00; Stop 10/20/18 at 08:59 Doxycycline Hyclate (Vibramycin) 100 mg BID PO Last administered on 10/16/18 21:02; Admin Dose 100 MG; Start 10/15/18 at 09:00; Stop 10/20/18 at 08:59 Meropenem/Sodium Chloride 50 ml @ 100 mls/hr Q8 IVPB Last administered on 10/17/18 05:54; Admin Dose 100 MLS/HR; Start 10/15/18 at 21:00 Vancomycin HCl 250 ml @ 125 mls/hr Q8H IVPB Last administered on 10/17/18 10:27; Admin Dose 125 MLS/HR; Start 10/15/18 at 19:00 Heparin Sodium (Porcine) (Heparin (5000 Units/1ml)) 5,000 unit BID SC Last administered on 10/15/18at 20:19; Admin Dose 5,000 UNIT; Start 10/15/18 at 21:00; Status Hold Voriconazole 350 mg/Sodium Chloride 150 ml @ 50 mls/hr Q12H IVPB Last administered on 10/16/18at 23:38; Admin Dose 50 MLS/HR; Start 10/16/18 at 12:30 FERNANDO COLBERT Oct 17, 2018 11:13
--- NOTE | 2018-10-17 11:59 | PN ---
Date/Time of Note Date/Time of Note DATE: 10/17/18 TIME: 11:56 Assessment/Plan VTE Prophylaxis Risk score (from Nsg)>0 risk: 3 SCD applied (from Nsg): Yes Pharmacological prophylaxis: heparin Lines/Catheters IV Catheter Type (from Nrsg): Saline Lock Assessment/Plan Hospital Course S: surgical biopsy today hopefully O: Constitutional: alert, oriented, no distress Head: atraumatic, normocephalic Neck: non-tender, supple, palpable and visible lymphadenopathy L >>R Respiratory: clear to auscultation, diminished with occ exp wheezing Cardiovascular: tachycardia Gastrointestinal: S/ NT /mildly distended / +BS Extremities: no edema, good radial pulses assessment and plan: 33 yo M with history of pure seminoma with pelvic, perianal, retroperitoneal, perirenal, mediastinal, supraclavicular metastases who presented with fevers, cough and tachycardia. He is being admitted for sepsis 2/2 Pneumonia. He is currently managed as follows : 1. Sepsis likely 2/2 bilateral pneumonia (HCAP) -ID managing abx 2. 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) -seems to be progressing despite treatment -per notes, patient has residual tumors and rising tumor markers -oncology desirous on tissue biopsy (Not needle biopsy ) on lymph nodes to define if this is residual seminoma or new teratoma?, planned for today, appreciate surgical input -Patient also with malignant pleural effusion with associated lung collapse and malignant ascites (not tense) -appreciate oncology review and recs -attempted paracentesis, no fluid -Now also with large left atrial mass, differential includes metastases versus atrial myxoma -cardio recs: Would benefit from a tertiary center, where he could undergo cardiac MRI and possible tissue diagnosis and cardio-oncology specialty consultation 3. severe iron deficiency anemia -likely 2/2 metastatic cancer, s/p 2 units PRBC 4. Tachycardia -less likely 2/2 sepsis based on new hx -cardio consult, BB ? -f/u echo findings 5. s/p TAMARA -likely prerenal from anemia, improved 6. chronic HTN -controlled on current meds -titrate as indicated dispo: -surgical biospy today -paracentesis was unsuccessful. treat bloating symptomatically, likely 2/2 disease burden -continue abx per ID -visualizer to begin working on transfer to higher level of care, see #1 -continue supportive care . Result Diagram: 10/16/18 0611 10/16/18 0611 Exam/Review of Systems Exam Vitals Vital Signs Date Temp Pulse Resp B/P (MAP) Pulse Ox O2 O2 Flow FiO2 Time Delivery Rate 10/17/18 117 08:01 10/17/18 98.5 19 140/91 98 07:49 (107) 10/15/18 Room Air 15:28 Intake and Output 10/16/18 10/16/18 10/17/18 1515:00 23:00 07:00 IntakeIntake Total 250 ml 870 ml 930 ml BalanceBalance 250 ml 870 ml 930 ml Medications Medication Current Medications Amlodipine Besylate (Norvasc) 5 mg DAILY PO Last administered on 10/16/18at 13:19; Admin Dose 5 MG; Start 10/13/18 at 09:00 Acetaminophen/ Hydrocodone Bitart ([place] (5/325)) 1 tab Q6H PRN PO PAIN; Start 10/12/18 at 22:30 Metoprolol Succinate (Toprol Xl) 50 mg DAILY PO Last administered on 10/16/18at 13:19; Admin Dose 50 MG; Start 10/13/18 at 09:00 IV Flush (NS 3 ml) 3 ml PER PROTOCOL IV ; Start 10/12/18 at 22:30 Ondansetron HCl (Zofran Inj) 4 mg Q6H PRN IV NAUSEA/VOMITING; Start 10/12/18 at 22:30 Acetaminophen (Tylenol Tab) 650 mg Q6H PRN PO .PAIN 1-3 OR TEMP Last administered on 10/17/18at 01:20; Admin Dose 650 MG; Start 10/12/18 at 22:30 Docusate Sodium (Colace) 100 mg Q12H PRN PO .CONSTIPATION; Start 10/12/18 at 2 2:30 Bisacodyl (Dulcolax) 5 mg DAILY PRN PO .CONSTIPATION; Start 10/12/18 at 22:30 Enoxaparin Sodium (Lovenox) 40 mg DAILY SC Last administered on 10/14/18at 09:04; Admin Dose 40 MG; Start 10/13/18 at 09:00; Status Hold Docusate Sodium (Colace) 100 mg BID PO Last administered on 10/16/18 13:18; Ad min Dose 100 MG; Start 10/13/18 at 02:30 Polyethylene Glycol (Miralax) 17 gm DAILY PO Last administered on 10/16/18 13:19; Admin Dose 17 GM; Start 10/13/18 at 02:30 Vancomycin HCl (Vanco Iv Per Pharmacy) VANCOMYCIN PER PHARMACY PER PROTOCOL XX ; Start 10/13/18 at 06:00 Simethicone (Mylicon) 80 mg QID PRN PO DISTENSION/GAS/BLOATING Last administered on 10/16/18 23:47; Admin Dose 80 MG; Start 10/13/18 at 16:00 Hydromorphone HCl (Dilaudid) 1 mg Q4H PRN IV SEVERE PAIN LEVEL 7-10 Last administered on 10/17/18 09:53; Admin Dose 1 MG; Start 10/14/18 at 12:30 Oseltamivir Phosphate (Tamiflu) 75 mg BID PO Last administered on 10/16/18 21:02; Admin Dose 75 MG; Start 10/15/18 at 09:00; Stop 10/20/18 at 08:59 Doxycycline Hyclate (Vibramycin) 100 mg BID PO Last administered on 10/16/18 21:02; Admin Dose 100 MG; Start 10/15/18 at 09:00; Stop 10/20/18 at 08:59 Meropenem/Sodium Chloride 50 ml @ 100 mls/hr Q8 IVPB Last administered on 10/17/18 05:54; Admin Dose 100 MLS/HR; Start 10/15/18 at 21:00 Vancomycin HCl 250 ml @ 125 mls/hr Q8H IVPB Last administered on 10/17/18 10:27; Admin Dose 125 MLS/HR; Start 10/15/18 at 19:00 Heparin Sodium (Porcine) (Heparin (5000 Units/1ml)) 5,000 unit BID SC Last administered on 10/15/18 20:19; Admin Dose 5,000 UNIT; Start 10/15/18 at 21:00; Status Hold Voriconazole 350 mg/Sodium Chloride 150 ml @ 50 mls/hr Q12H IVPB Last administered on 10/16/18 23:38; Admin Dose 50 MLS/HR; Start 10/16/18 at 12:30 BENJAMIN NOONAN 13, 2019 11:59
[2018-10-17] MEDS ORDERED: LIDOCAINE 1%/EPI (1:100,000) (MDV) 20 ML ONE (12:37)
[2018-10-17] MEDS ORDERED: BUPIVACAINE 0.25% (MPF) 30 ML INJ ONE (12:37)
[2018-10-17] MEDS ORDERED: MIDAZOLAM 1 MG/ML 2 ML INJ ONE (12:44)
[2018-10-17] MEDS ORDERED: LABETALOL HCL 20MG INJ ONE (12:49)
[2018-10-17] MEDS ORDERED: ONDANSETRON 4 MG INJ IV PRN ×2 (14:00)
[2018-10-17] MEDS ORDERED: ACETAMINOPHEN 325 MG TAB PO PRN (14:00)
[2018-10-17] MEDS ORDERED: HYDROmorphONE 1 MG/5 ML IV SYRINGE IV PRN ×3 (14:00)
[2018-10-17] MEDS ORDERED: LABETALOL HCL 20MG INJ IV PRN (14:00)
[2018-10-17] MEDS ORDERED: NACL 0.9% 3 ML SYG IV SCH (14:00)
--- NOTE | 2018-10-17 14:01 | PAC ---
Date/Time of Note Date/Time of Note DATE: 10/17/18 TIME: 14:01 Post-Anesthesia Notes Post-Anesthesia Note Last documented vital signs BP 140/86 HR 110 Temp 97.8 RR 16 SPo2 96% Vital Signs Date Temp Pulse Resp B/P (MAP) Pulse Ox O2 O2 Flow FiO2 Time Delivery Rate 10/17/18 117 08:01 10/17/18 98.5 19 140/91 98 07:49 (107) 10/15/18 Room Air 15:28 Activity: WNL Respiratory function: WNL Cardiovascular function: WNL Mental status: Baseline Pain reasonably controlled: Yes Hydration appropriate: Yes Nausea/Vomiting absent: Yes BRIANNE EVANS Oct 17, 2018 14:01
--- NOTE | 2018-10-17 14:06 | SIPON ---
Date/Time of Note Date/Time of Note DATE: 10/17/18 TIME: 14:03 Operative Report Preoperative Diagnosis Supraclavicular Lymphadenopathy, Metastatic Seminoma Postoperative Diagnosis Same Operation/Procedure Performed Supraclavicular lymphnode biopsy Surgeon see signature line junior sales assistant none Anesthesia: MAC Estimated blood loss: none Transfusion Required none Specimen Lymph node level 5 - Supraclavicular Grafts/Implants none Complications none YASMINE CHARLES MD Oct 17, 2018 14:05
[2018-10-17] MEDS ORDERED: HYDROmorphONE 1 MG/5 ML IV SYRINGE IV ONE (14:10)
[2018-10-17] MEDS: morphine 2 MG INJ IV PRN (14:39)
[2018-10-17] MEDS: SOD CHLORIDE 0.9% IVPB SCH (15:21)
[2018-10-17] MEDS: VORICONAZOLE IVPB SCH (15:21)
--- NOTE | 2018-10-17 15:58 | CONS ---
Assessment/Plan Assessment/Plan Hospital Course (Demo Recall) - sepsis due to pneumonia, HCAP - fever and leukocytosis improving - pneumonia, HCAP in an immunocompromised Pt. CT on 10/05/2018 showed new areas of alveolar consolidation/atelectasis of lower lobe, L>R. There was near complete LLL atelectasis/consolidation, atelectasis of the lingula, subsegmental atelectasis anterior medial RML, minimal passive atelectasis/dependent related change posterior upper lobes, mo suspicious nodules. - dry cough, concerning for viral bronchitis, fungal pneumonia is also considered - immunocompromised status: metastatic testicular CA, s/p chemo - testicular CA with pelvic, perianal, retroperitoneal, perirenal, mediastinal, supraclavicular metastases, recurrent s/p 4 cycles of chemo last given in 04/2018 - daily fever, due to pneumonia but also due to metastatic CA - h/o hydroureter due to testicular CA s/p insertion of L ureteral JJ stent placement in 01/2018 Recommendations: - Pending: nasopharyngeal swab for influenza RT-PCR (EIA was negative) and for respiratory viruses, urine legionella antigen, procalcitonin (pending), coccidi oides serology, cryptococcus antigen, quantiFERON TB gold - Continue IV vancomycin (10/12/2018-), meropenem (10/14/2018-); - Continue PO doxycycline (10/15/2018-) for atypical coverage, ordered for 5 day s; empiric PO oseltamivir (10/15/2018-) for a high clinical suspicion of influenza bronchitis, ordered for 5 days; and IV voriconazole for empiric antifungal coverage - F/u lymph node biopsy results Management d/w patient, patient's family at the bedside, and with Dr. Gilliland. Thank you Consultation Date/Type/Reason Admit Date/Time Oct 12, 2018 at 21:37 Initial Consult Date 10/14/18 Type of Consult ID Requesting Provider: BENJAMIN NOONAN Date/Time of Note DATE: 10/17/18 TIME: 15:55 24 HR Interval Summary Free Text/Dictation The patient states that when he lays flat it causes his back to be uncomfortable and that he was flat for 2 hours during the lymph node biopsy today as he was told it was deeper than expected so the procedure was prolonged. He states he has been in pain and that the pain medication today isn't kicking in. Denies any other ROS diverting from baseline. No acute issues were reported by nursing. Exam/Review of Systems Exam Vitals Vital Signs Date Temp Pulse Resp B/P (MAP) Pulse Ox O2 O2 Flow FiO2 Time Delivery Rate 10/17/18 97.6 118 20 145/90 96 Room Air 15:43 (108) Intake and Output 10/16/18 10/16/18 10/17/18 1515:00 23:00 07:00 IntakeIntake Total 250 ml 870 ml 930 ml BalanceBalance 250 ml 870 ml 930 ml Allergies Coded Allergies No Known Allergy (Unverified10/12/18) Exam Constitutional: alert, oriented, well developed, other (sitting up in bed eating a jello) Psych: no complaints, nl mood/affect Head: normocephalic, atraumatic Eyes: nl conjunctiva, nl lids, nl sclera ENMT: nl external ears & nose, nl nasal mucosa & septum, mucosa pink and moist Neck: supple, other (+ cervical lymphadenopathy; there is a c/d/i dressing on patient's left neck [bx site]) Respiratory: clear to auscultation, normal air movement, diminished breath sounds (bibasillarly) Cardiovascular: regular rate and rhythm, nl pulses Gastrointestinal: soft, non-tender, bowel sounds (normoactive) Musculoskeletal: nl extremities to inspection Extremities: normal pulses; No edema Neurological: EQUIPMENT OPERATION INSTRUCTOR II-XII intact, nl mental status, nl speech, nl strength Skin: nl turgor; No rash or lesions Results Result Diagram: 10/16/18 0611 10/16/18 0611 Imaging Imaging Abd US 10/16/18 FINDINGS: No ascites is seen. No free fluid is identified within any of the four quadrants of the abdominal pelvic cavity. There is no significant drainable fluid collection. IMPRESSION: 1. No significant ascites identified. Echo 10/16/18 Conclusions: Normal left ventricular systolic function. Large left atrial mass measuring 2.5 x 2.9 cm. Trace tricuspid regurgitation with normal pulmonary pressures. Trivial sized pericardial effusion. Medications Medication Current Medications Acetaminophen/ Hydrocodone Bitart ([place] (5/325)) 1 tab Q6H PRN PO PAIN Last administered on 10/17/18at 14:38; Admin Dose 1 TAB; Start 10/12/18 at 22:30 Metoprolol Succinate (Toprol Xl) 50 mg DAILY PO Last administered on 10/16/18 13:19; Admin Dose 50 MG; Start 10/13/18 at 09:00 IV Flush (NS 3 ml) 3 ml PER PROTOCOL IV ; Start 10/12/18 at 22:30 Ondansetron HCl (Zofran Inj) 4 mg Q6H PRN IV NAUSEA/VOMITING; Start 10/12/18 at 22:30 Acetaminophen (Tylenol Tab) 650 mg Q6H PRN PO .PAIN 1-3 OR TEMP Last administered on 10/17/18 01:20; Admin Dose 650 MG; Start 10/12/18 at 22:30 Docusate Sodium (Colace) 100 mg Q12H PRN PO .CONSTIPATION; Start 10/12/18 at 22:30 Bisacodyl (Dulcolax) 5 mg DAILY PRN PO .CONSTIPATION; Start 10/12/18 at 22:30 Enoxaparin Sodium (Lovenox) 40 mg DAILY SC Last administered on 10/14/18 09:04; Admin Dose 40 MG; Start 10/13/18 at 09:00; Status Hold Docusate Sodium (Colace) 100 mg BID PO Last administered on 10/16/18 13:18; Admin Dose 100 MG; Start 10/13/18 at 02:30 Polyethylene Glycol (Miralax) 17 gm DAILY PO Last administered on 10/16/18 13:19; Admin Dose 17 GM; Start 10/13/18 at 02:30 Vancomycin HCl (Vanco Iv Per Pharmacy) VANCOMYCIN PER PHARMACY PER PROTOCOL XX ; Start 10/13/18 at 06:00 Simethicone (Mylicon) 80 mg QID PRN PO DISTENSION/GAS/BLOATING Last administered on 10/16/18 23:47; Admin Dose 80 MG; Start 10/13/18 at 16:00 Hydromorphone HCl (Dilaudid) 1 mg Q4H PRN IV SEVERE PAIN LEVEL 7-10 Last administered on 10/17/18 09:53; Admin Dose 1 MG; Start 10/14/18 at 12:30 Oseltamivir Phosphate (Tamiflu) 75 mg BID PO Last administered on 3/12/19at 21:02; Admin Dose 75 MG; Start 10/15/18 at 09:00; Stop 10/20/18 at 08:59 Doxycycline Hyclate (Vibramycin) 100 mg BID PO Last administered on 10/16/18at 21:02; Admin Dose 100 MG; Start 10/15/18 at 09:00; Stop 10/20/18 at 08:59 Meropenem/Sodium Chloride 50 ml @ 100 mls/hr Q8 IVPB Last administered on 10/17/18at 15:33; Admin Dose 100 MLS/HR; Start 10/15/18 at 21:00 Vancomycin HCl 250 ml @ 125 mls/hr Q8H IVPB Last administered on 10/17/18at 10:27; Admin Dose 125 MLS/HR; Start 10/15/18 at 19:00 Voriconazole 350 mg/Sodium Chloride 150 ml @ 50 mls/hr Q12H IVPB Last administered on 10/17/18at 15:21; Admin Dose 50 MLS/HR; Start 10/16/18 at 12:30 Miscellaneous Information (*Rx Drug Level Order Reminder*) VANCOMYCIN TROUGH AT 1800 ONCE ONCE XX ; Start 10/17/18 at 18:00; Stop 10/17/18 at 18:01 Morphine Sulfate (morphine) 2 mg Q2H PRN IV PAIN LEVEL 6-10 Last administered on 10/17/18at 14:39; Admin Dose 2 MG; Start 10/17/18 at 14:00 Ondansetron HCl (Zofran Inj) 4 mg Q6H PRN IV NAUSEA AND/OR VOMITING; Start 10/17/18 at 14:00 IV Flush (NS 3 ml) 3 ml PER PROTOCOL IV ; Start 10/17/18 at 14:00 Acetaminophen (Tylenol Tab) 325 mg Q6H PRN PO MILD PAIN(1-3)OR ELEVATED TEMP; Start 10/17/18 at 14:00 Hydromorphone HCl (Dilaudid) 0.2 mg PACU PRN IV MILD PAIN 1-3; Start 10/17/18 at 14:00; Stop 10/17/18 at 19:00 Hydromorphone HCl (Dilaudid) 0.4 mg PACU PRN IV MOD PAIN 4-6; Start 10/17/18 at 14:00; Stop 10/17/18 at 19:00 Hydromorphone HCl (Dilaudid) 0.6 mg PACU PRN IV SEVERE PAIN 7-10 Last administered on 10/17/18at 14:39; Admin Dose 0.6 MG; Start 10/17/18 at 14:00; Stop 10/17/18 at 19:00 Ondansetron HCl (Zofran Inj) 4 mg PACU ORDER PRN IV NAUSEA/VOMITING; Start 10/17/18 at 14:00; Stop 10/17/18 at 19:00 Labetalol HCl (Labetalol) 5 mg PACU ORDER PRN IV HIGH BLOOD PRESSURE; Start 10/17/18 at 14:00; Stop 10/17/18 at 19:00 Metoprolol Tartrate (Lopressor) 25 mg BID PO ; Start 10/17/18 at 21:00 Amlodipine Besylate (Norvasc) 5 mg DAILY PO ; Start 10/18/18 at 09:00 TERESA HELLER NP Oct 17, 2018 15:58
--- NOTE | 2018-10-17 16:05 | OPR ---
DATE OF OPERATION: 10/17/2018 PROCEDURE: Colonoscopy. PREOPERATIVE DIAGNOSES: 1. Supraclavicular lymphadenopathy. 2. Metastatic seminoma. 3. Recent pneumonia for sepsis. POSTOPERATIVE DIAGNOSES: 1. Supraclavicular lymphadenopathy. 2. Metastatic seminoma. 3. Recent pneumonia for sepsis. PROCEDURE PERFORMED: Supraclavicular lymph node biopsy level 5. COMPLICATIONS: None. ESTIMATED BLOOD LOSS: Minimal. SURGEON: Sharan Phelan M.D. TAG METER OPERATOR: None. PATIENT'S HISTORY: The patient is a 33-year-old male with known history of seminoma, status post jose mo with orchiectomy, has had recurrence with metastatic disease to multiple region including large ma tted nodes of the supraclavicular area. A request was made by oncology to reevaluate the inessa basin for clarification of disease and a response rate tissue architectural biopsy was required. Risks an d benefits of the operation, risk of bleeding, infection, risk of great vessel injury, risk of pneumo thorax, risk of thoracic duct injury were discussed with the patient. DESCRIPTION OF PROCEDURE: The patient was brought to the OR for definitive operation. The patient w as brought to the OR, placed in supine position. Sequential compression devices were applied to bila teral lower extremities. Preoperative antibiotic was administered to the patient. O2 nasal cannula was applied. The patient was sedated. Neck was anesthetized with 17 mL of 0.5% Marcaine with epinep hrine and 1% lidocaine with epinephrine. A combination infiltration was performed for complete field block. Next, just at the region of the superior skinfold at the supraclavicular junction in the low er neck, an incision of approximately 4 cm was made. Careful dissection was applied to the level of the platysmus. The platysmus was divided. Next, the fibers of the inferior tissue were divided in t he direction of the skin, followed by parallel to the neck to expose the tumor mass. There was engor gement of the neck vessels, most likely because of the invasion of the mass. Vessels were carefully retracted laterally. The mass was palpated and scoring of the superior capsule was made. An excisio nal biopsy of the capsule was made. Three biopsies were taken and sent to pathology for permanent in formaldehyde. The patient tolerated the procedure well. Dictated By: SHARAN GARBER/JOSE D Conf#: [id number] [facility]#: [id number]
[2018-10-17] MEDS: METOPROLOL 25 MG TAB PO SCH (20:36)
[2018-10-18] VITALS (12 sets, daily range): BP systolic 127–164; BP diastolic 85–100; PULSE 111–153; RESP 18–20
[2018-10-18] MEDS: VORICONAZOLE IVPB SCH ×2 (00:34→14:08)
[2018-10-18] MEDS: SOD CHLORIDE 0.9% IVPB SCH ×2 (00:34→14:08)
[2018-10-18] MEDS: HYDROmorphONE 1 MG/ML SYG IV PRN ×7 (02:59→23:55)
[2018-10-18] MEDS: VANCOMYCIN 1 GM 250 ML IVPB SCH ×3 (03:46→19:34)
[2018-10-18] MEDS: ACETAMINOPHEN 325 MG TAB PO PRN ×3 (05:24→20:53)
[2018-10-18] MEDS: MEROPENEM 1 GM/50ML(PMX) 50 ML IVPB SCH ×3 (05:25→23:00)
--- NOTE | 2018-10-18 05:54 | PN ---
Date/Time of Note Date/Time of Note DATE: 10/18/18 TIME: 05:52 Assessment/Plan Lines/Catheters IV Catheter Type (from Nrs): Saline Lock Assessment/Plan Assessment/Plan patient with metastatic seminoma and possible left atrial mass. agree with transfer to tertiary center for comprehensive oncologic workup and treatment. Exam/Review of Systems Vital Signs Vitals Vital Signs Date Temp Pulse Resp B/P (MAP) Pulse Ox O2 O2 Flow FiO2 Time Delivery Rate 10/18/18 99.9 05:24 10/18/18 130 19 142/94 96 04:07 (110) 10/17/18 Room Air 15:43 Intake and Output 10/17/18 10/17/18 10/18/18 1515:00 23:00 07:00 IntakeIntake Total 600 ml 400 ml 450 ml OutputOutput Total 2 ml BalanceBalance 598 ml 400 ml 450 ml Results Result Diagram: 10/16/18 0611 10/16/18 0611 JANNETH AVILA MD Oct 18, 2018 05:54
[2018-10-18] MEDS: DOXYCYCLINE 100 MG TAB PO SCH ×2 (08:11→21:03)
[2018-10-18] MEDS: OSELTAMIVIR 75 MG CAP PO SCH ×2 (08:11→21:03)
[2018-10-18] MEDS: DOCUSATE SODIUM 100 MG CAP PO SCH ×2 (08:11→21:03)
[2018-10-18] MEDS: METOPROLOL (XL) 50 MG TAB PO SCH (08:12)
[2018-10-18] MEDS: METOPROLOL 25 MG TAB PO SCH (08:12)
[2018-10-18] MEDS: POLYETHYLENE GLYCOL 17 GM PACKET PO SCH (08:13)
[2018-10-18] MEDS: AMLODIPINE 5 MG TAB PO SCH (08:55)
--- NOTE | 2018-10-18 10:00 | CONS ---
Assessment/Plan Assessment/Plan Assessment/Plan (Daily) Assessment recommendations; 1. Patient admitted with shortness of breath due to likely left lower lobe obstructive pneumonia. 2. History of seminoma status post chemotherapy with extensive cervical, supraclavicular, mediastinal and ureteral regular adenopathy. Status post lymph node biopsy yesterday. 3. Small bilateral pleural effusions more pronounced on left side. Likely parapneumonic in etiology. Continue current supportive care. Further recommendations once biopsy results are obtained. Patient being followed by oncologist. Consultation Date/Type/Reason Admit Date/Time Oct 12, 2018 at 21:37 Initial Consult Date 10/16/18 Type of Consult Pulmonary Pulmonary consult requested for evaluation of left lower lobe infiltrate as well as pleural effusions. Patient is a pleasant 33-year-old male who was admitted to the hospital with complaints of fever as well as fast heart rate. Upon further evaluation chest x -ray was done as well as CT scan of the chest which is showing left lower lobe consolidation with significant mediastinal as well as abdominal adenopathy with left lower lobe consolidation and bilateral pleural effusions. Patient currently is awaiting left cervical lymph node biopsy today. He denies any shortness of breath at rest, any coughing, sputum production hemoptysis or any further fever. Past medical history; next 1. 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 Status post excision as well as chemotherapy which she finished April of last year. According to the patient the tumor did go into complete remission however over the last few months the patient is again having progressive clinical downhill course with weight loss, fever, severe back pain. Medications; reviewed. Allergies; none. Social history; noncontributory. Family history; patient , has supportive . No show any malignancy in the family. 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 Review of systems; denies any headache, seizures, visual changes. Any sinus symptoms. Denies any chest pain. Still complains of back pain. Denies any dysphagia. Any coughing, sputum production or wheezing. Denies any further fever. Denies any abdominal pain, nausea vomiting. Any melena or hematochezia. He has lost 40 pounds over the last few months. Denies any skin rash. Denies any orthopnea. Any urinary symptoms. General exam; young male, awake alert, currently in no distress. Requesting Provider: BENJAMIN NOONAN Date/Time of Note DATE: 10/18/18 TIME: 09:58 24 HR Interval Summary Free Text/Dictation Patient's condition is stable overall. Denies any shortness of breath. Underwent left supraclavicular lymph node biopsy yesterday. Results are pending. General exam; young male, awake alert, currently no distress. Exam/Review of Systems Exam Vitals Vital Signs Date Temp Pulse Resp B/P (MAP) Pulse Ox O2 O2 Flow FiO2 Time Delivery Rate 10/18/18 134 08:18 10/18/18 98.5 18 127/85 94 Room Air 07:23 (99) Intake and Output 10/17/18 10/17/18 10/18/18 1515:00 23:00 07:00 IntakeIntake Total 600 ml 400 ml 750 ml OutputOutput Total 2 ml BalanceBalance 598 ml 400 ml 750 ml Exam HEENT exam; supple neck, no JVD. Patient has good dentition. Extensive left cervical and supraclavicular lymphadenopathy. Chest exam; diminished breath sound lung bases. Upper lobes are clear. S1-S2 audible, no murmurs. Regular rhythm. Abdomen exam; soft, nontender. No organomegaly. Bowel sounds audible. Extremity exam; no edema clubbing. 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 Results Result Diagram: 10/16/18 0611 10/18/18 0551 Results 24hrs Laboratory Tests Test 10/17/18 17:45 10/18/18 05:51 Vancomycin Level Trough 17.1 Blood Urea Nitrogen 7 Creatinine 0.79 Medications Medication Current Medications Acetaminophen/ Hydrocodone Bitart ([place] (5/325)) 1 tab Q6H PRN PO PAIN Last administered on 10/17/18at 14:38; Admin Dose 1 TAB; Start 10/12/18 at 22:30 Metoprolol Succinate (Toprol Xl) 50 mg DAILY PO Last administered on 10/18/18at 08:12; Admin Dose 50 MG; Start 10/13/18 at 09:00 IV Flush (NS 3 ml) 3 ml PER PROTOCOL IV ; Start 10/12/18 at 22:30 Ondansetron HCl (Zofran Inj) 4 mg Q6H PRN IV NAUSEA/VOMITING; Start 10/12/18 at 22:30 Acetaminophen (Tylenol Tab) 650 mg Q6H PRN PO .PAIN 1-3 OR TEMP Last administered on 10/18/18 05:24; Admin Dose 650 MG; Start 10/12/18 at 22:30 Docusate Sodium (Colace) 100 mg Q12H PRN PO .CONSTIPATION; Start 10/12/18 at 22:30 Bisacodyl (Dulcolax) 5 mg DAILY PRN PO .CONSTIPATION; Start 10/12/18 at 22:30 Enoxaparin Sodium (Lovenox) 40 mg DAILY SC Last administered on 10/14/18 09:04; Admin Dose 40 MG; Start 10/13/18 at 09:00; Status Hold Docusate Sodium (Colace) 100 mg BID PO Last administered on 10/18/18 08:11; Admin Dose 100 MG; Start 10/13/18 at 02:30 Polyethylene Glycol (Miralax) 17 gm DAILY PO Last administered on 10/18/18 08:13; Admin Dose 17 GM; Start 10/13/18 at 02:30 Vancomycin HCl (Vanco Iv Per Pharmacy) VANCOMYCIN PER PHARMACY PER PROTOCOL XX ; Start 10/13/18 at 06:00 Simethicone (Mylicon) 80 mg QID PRN PO DISTENSION/GAS/BLOATING Last administ ered on 10/16/18 23:47; Admin Dose 80 MG; Start 10/13/18 at 16:00 Hydromorphone HCl (Dilaudid) 1 mg Q4H PRN IV SEVERE PAIN LEVEL 7-10 Last administered on 10/18/18 06:52; Admin Dose 1 MG; Start 10/14/18 at 12:30 Oseltamivir Phosphate (Tamiflu) 75 mg BID PO Last administered on 10/18/18 08:11; Admin Dose 75 MG; Start 10/15/18 at 09:00; Stop 10/20/18 at 08:59 Doxycycline Hyclate (Vibramycin) 100 mg BID PO Last administered on 10/18/18 08:11; Admin Dose 100 MG; Start 10/15/18 at 09:00; Stop 10/20/18 at 08:59 Meropenem/Sodium Chloride 50 ml @ 100 mls/hr Q8 IVPB Last administered on 10/18/18 05:25; Admin Dose 100 MLS/HR; Start 10/15/18 at 21:00 Vancomycin HCl 250 ml @ 125 mls/hr Q8H IVPB Last administered on 10/18/18at 03:46; Admin Dose 125 MLS/HR; Start 10/15/18 at 19:00 Voriconazole 350 mg/Sodium Chloride 150 ml @ 50 mls/hr Q12H IVPB Last administered on 10/18/18 00:34; Admin Dose 50 MLS/HR; Start 10/16/18 at 12:30 Morphine Sulfate (morphine) 2 mg Q2H PRN IV PAIN LEVEL 6-10 Last administered on 10/17/18at 14:39; Admin Dose 2 MG; Start 10/17/18 at 14:00 Ondansetron HCl (Zofran Inj) 4 mg Q6H PRN IV NAUSEA AND/OR VOMITING; Start 10/17/18 at 14:00 IV Flush (NS 3 ml) 3 ml PER PROTOCOL IV ; Start 10/17/18 at 14:00 Acetaminophen (Tylenol Tab) 325 mg Q6H PRN PO MILD PAIN(1-3)OR ELEVATED TEMP; Start 10/17/18 at 14:00 Metoprolol Tartrate (Lopressor) 25 mg BID PO Last administered on 10/18/18 08:12; Admin Dose 25 MG; Start 10/17/18 at 21:00 Amlodipine Besylate (Norvasc) 5 mg DAILY PO Last administered on 10/18/18 08:55; Admin Dose 5 MG; Start 10/18/18 at 09:00 FERNANDO COLBERT 14, 2019 10:00
--- NOTE | 2018-10-18 11:22 | PN ---
Date/Time of Note Date/Time of Note DATE: 10/18/18 TIME: 11:18 Assessment/Plan VTE Prophylaxis Risk score (from Nsg)>0 risk: 3 SCD applied (from Nsg): Yes Pharmacological prophylaxis: heparin Lines/Catheters IV Catheter Type (from Nrsg): [place] Assessment/Plan Hospital Course S: surgical biopsy done yesterday, mild post op pain O: Constitutional: alert, oriented, no distress Head: atraumatic, normocephalic Neck: non-tender, supple, dressing covering L neck Respiratory: clear to auscultation, diminished with occ exp wheezing Cardiovascular: tachycardia Gastrointestinal: S/ NT /mildly distended / +BS Extremities: no edema, good radial pulses assessment and plan: 33 yo M with history of pure seminoma with pelvic, perianal, retroperitoneal, perirenal, mediastinal, supraclavicular metastases who presented with fevers, cough and tachycardia. He is being admitted for sepsis 2/2 Pneumonia. He is currently managed as follows : 1. Sepsis likely 2/2 bilateral pneumonia (HCAP) -ID managing abx 2. 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) -seems to be progressing despite treatment -per notes, patient has residual tumors and rising tumor markers -s/p tissue biopsy 10/17/18, f/u path -Patient also with malignant pleural effusion with associated lung collapse and malignant ascites (not tense) -appreciate oncology review and recs -attempted paracentesis, no fluid -Now also with large left atrial mass, differential includes metastases versus atrial myxoma -cardio recs: Would benefit from a tertiary center, where he could undergo cardiac MRI and possible tissue diagnosis and cardio-oncology specialty consultation 3. severe iron deficiency anemia -likely 2/2 metastatic cancer, s/p 2 units PRBC 4. Tachycardia -likely related to atrial mass 5. s/p TAMARA -likely prerenal from anemia, improved 6. chronic HTN - fair control on current meds -titrate as indicated dispo: -case mgt working on transfer, -patient is not a candidate for o/p f/u based on persistent fevers and tachycardia -continue in house monitoring and mgt -continue supportive care . Result Diagram: 10/16/18 0611 10/18/18 0551 Results 24hrs Laboratory Tests Test 10/17/18 17:45 10/18/18 05:51 Vancomycin Level Trough 17.1 Blood Urea Nitrogen 7 Creatinine 0.79 Exam/Review of Systems Exam Vitals Vital Signs Date Temp Pulse Resp B/P (MAP) Pulse Ox O2 O2 Flow FiO2 Time Delivery Rate 10/18/18 134 08:18 10/18/18 98.5 18 127/85 94 Room Air 07:23 (99) Intake and Output 10/17/18 10/17/18 10/18/18 1515:00 23:00 07:00 IntakeIntake Total 600 ml 400 ml 750 ml OutputOutput Total 2 ml BalanceBalance 598 ml 400 ml 750 ml Results Results 24hrs Laboratory Tests Test 10/17/18 17:45 10/18/18 05:51 Vancomycin Level Trough 17.1 Blood Urea Nitrogen 7 Creatinine 0.79 Medications Medication Current Medications Acetaminophen/ Hydrocodone Bitart ([place] (5/325)) 1 tab Q6H PRN PO PAIN Last administered on 10/17/18at 14:38; Admin Dose 1 TAB; Start 10/12/18 at 22:30 Metoprolol Succinate (Toprol Xl) 50 mg DAILY PO Last administered on 10/18/18at 08:12; Admin Dose 50 MG; Start 10/13/18 at 09:00 IV Flush (NS 3 ml) 3 ml PER PROTOCOL IV ; Start 10/12/18 at 22:30 Ondansetron HCl (Zofran Inj) 4 mg Q6H PRN IV NAUSEA/VOMITING; Start 10/12/18 at 22:30 Acetaminophen (Tylenol Tab) 650 mg Q6H PRN PO .PAIN 1-3 OR TEMP Last administered on 10/18/18at 05:24; Admin Dose 650 MG; Start 10/12/18 at 22:30 Docusate Sodium (Colace) 100 mg Q12H PRN PO .CONSTIPATION; Start 10/12/18 at 22:30 Bisacodyl (Dulcolax) 5 mg DAILY PRN PO .CONSTIPATION; Start 10/12/18 at 22:30 Enoxaparin Sodium (Lovenox) 40 mg DAILY SC Last administered on 10/14/18at 09:04; Admin Dose 40 MG; Start 10/13/18 at 09:00; Status Hold Docusate Sodium (Colace) 100 mg BID PO Last administered on 10/18/18 08:11; Admin Dose 100 MG; Start 10/13/18 at 02:30 Polyethylene Glycol (Miralax) 17 gm DAILY PO Last administered on 10/18/18 08:13; Admin Dose 17 GM; Start 10/13/18 at 02:30 Vancomycin HCl (Vanco Iv Per Pharmacy) VANCOMYCIN PER PHARMACY PER PROTOCOL XX ; Start 10/13/18 at 06:00 Simethicone (Mylicon) 80 mg QID PRN PO DISTENSION/GAS/BLOATING Last administered on 10/16/18 23:47; Admin Dose 80 MG; Start 10/13/18 at 16:00 Hydromorphone HCl (Dilaudid) 1 mg Q4H PRN IV SEVERE PAIN LEVEL 7-10 Last administered on 10/18/18 06:52; Admin Dose 1 MG; Start 10/14/18 at 12:30 Oseltamivir Phosphate (Tamiflu) 75 mg BID PO Last administered on 10/18/18 08:11; Admin Dose 75 MG; Start 10/15/18 at 09:00; Stop 10/20/18 at 08:59 Doxycycline Hyclate (Vibramycin) 100 mg BID PO Last administered on 10/18/18 08:11; Admin Dose 100 MG; Start 10/15/18 at 09:00; Stop 10/20/18 at 08:59 Meropenem/Sodium Chloride 50 ml @ 100 mls/hr Q8 IVPB Last administered on 10/18/18 05:25; Admin Dose 100 MLS/HR; Start 10/15/18 at 21:00 Vancomycin HCl 250 ml @ 125 mls/hr Q8H IVPB Last administered on 10/18/18 03:46; Admin Dose 125 MLS/HR; Start 10/15/18 at 19:00 Voriconazole 350 mg/Sodium Chloride 150 ml @ 50 mls/hr Q12H IVPB Last administered on 10/18/18 00:34; Admin Dose 50 MLS/HR; Start 10/16/18 at 12:30 Morphine Sulfate (morphine) 2 mg Q2H PRN IV PAIN LEVEL 6-10 Last administered on 10/17/18 14:39; Admin Dose 2 MG; Start 10/17/18 at 14:00 Ondansetron HCl (Zofran Inj) 4 mg Q6H PRN IV NAUSEA AND/OR VOMITING; Start 10/17/18 at 14:00 IV Flush (NS 3 ml) 3 ml PER PROTOCOL IV ; Start 10/17/18 at 14:00 Acetaminophen (Tylenol Tab) 325 mg Q6H PRN PO MILD PAIN(1-3)OR ELEVATED TEMP; Start 10/17/18 at 14:00 Metoprolol Tartrate (Lopressor) 25 mg BID PO Last administered on 10/18/18at 08:12; Admin Dose 25 MG; Start 10/17/18 at 21:00 Amlodipine Besylate (Norvasc) 5 mg DAILY PO Last administered on 10/18/18at 08:55; Admin Dose 5 MG; Start 10/18/18 at 09:00 BENJAMIN NOONAN Oct 18, 2018 11:22
--- NOTE | 2018-10-18 21:44 | CONS ---
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 He is gradually more tachycardic this evening secondary to pain and fever. Impression: Sinus tachycardia, multifactorial, due to LA mass, fever, pain Left atrial mass, leading to sinus tachycardia Recc: Patient is being transferred to [facility] for higher level of care for diagnosis and treatment/excision of the left atrial mass Appreciate CT surgery input Treat underlying fever, pain Consultation Date/Type/Reason Admit Date/Time Oct 12, 2018 at 21:37 Initial Consult Date 10/16/18 Type of Consult Cardiology Requesting Provider: BENJAMIN NOONAN Date/Time of Note DATE: 10/18/18 TIME: 21:34 24 HR Interval Summary Free Text/Dictation Heart rate has gradually gone up today, he states he's having a lot of pain, and he is also febrile. Constitutional: febrile Exam/Review of Systems Vital Signs Vitals Vital Signs Date Temp Pulse Resp B/P (MAP) Pulse Ox O2 O2 Flow FiO2 Time Delivery Rate 10/18/18 100.6 20:53 10/18/18 149 20 164/100 92 20:41 (121) 10/18/18 Room Air 15:44 Intake and Output 10/17/18 10/17/18 10/18/18 1515:00 23:00 07:00 IntakeIntake Total 600 ml 400 ml 750 ml OutputOutput Total 2 ml BalanceBalance 598 ml 400 ml 750 ml Exam Constitutional: alert, oriented, well developed Psych: nl mood/affect Head: normocephalic, atraumatic Eyes: nl conjunctiva, EOMI, nl lids, nl sclera ENMT: nl external ears & nose, nl lips & teeth, nl nasal mucosa & septum Neck: supple; No jvd, No bruits Respiratory: clear to auscultation, normal air movement Cardiovascular: regular rate and rhythm, nl pulses; No murmurs/extra sounds Gastrointestinal: soft, nl liver, spleen, non-tender Musculoskeletal: nl extremities to inspection Neurological: nl mental status, nl speech Skin: nl turgor; No rash or lesions Labs Result Diagram: 10/16/18 0611 10/18/18 0551 Results 24hrs Laboratory Tests Test 10/18/18 05:51 Blood Urea Nitrogen 7 Creatinine 0.79 Medications Medications Current Medications Acetaminophen/ Hydrocodone Bitart ([place] (5/325)) 1 tab Q6H PRN PO PAIN Last administered on 10/17/18at 14:38; Admin Dose 1 TAB; Start 10/12/18 at 22:30 Metoprolol Succinate (Toprol Xl) 50 mg DAILY PO Last administered on 10/18/18at 08:12; Admin Dose 50 MG; Start 10/13/18 at 09:00 IV Flush (NS 3 ml) 3 ml PER PROTOCOL IV ; Start 10/12/18 at 22:30 Ondansetron HCl (Zofran Inj) 4 mg Q6H PRN IV NAUSEA/VOMITING; Start 10/12/18 at 22:30 Acetaminophen (Tylenol Tab) 650 mg Q6H PRN PO .PAIN 1-3 OR TEMP Last administered on 10/18/18at 20:53; Admin Dose 650 MG; Start 10/12/18 at 22:30 Docusate Sodium (Colace) 100 mg Q12H PRN PO .CONSTIPATION; Start 10/12/18 at 22:30 Bisacodyl (Dulcolax) 5 mg DAILY PRN PO .CONSTIPATION; Start 10/12/18 at 22:30 Enoxaparin Sodium (Lovenox) 40 mg DAILY SC Last administered on 10/14/18at 09:04; Admin Dose 40 MG; Start 10/13/18 at 09:00; Status Hold Docusate Sodium (Colace) 100 mg BID PO Last administered on 10/18/18at 21:03; Admin Dose 100 MG; Start 10/13/18 at 02:30 Polyethylene Glycol (Miralax) 17 gm DAILY PO Last administered on 10/18/18 08:13; Admin Dose 17 GM; Start 10/13/18 at 02:30 Vancomycin HCl (Vanco Iv Per Pharmacy) VANCOMYCIN PER PHARMACY PER PROTOCOL XX ; Start 10/13/18 at 06:00 Simethicone (Mylicon) 80 mg QID PRN PO DISTENSION/GAS/BLOATING Last administered on 10/16/18at 23:47; Admin Dose 80 MG; Start 10/13/18 at 16:00 Hydromorphone HCl (Dilaudid) 1 mg Q4H PRN IV SEVERE PAIN LEVEL 7-10 Last administered on 10/18/18 19:58; Admin Dose 1 MG; Start 10/14/18 at 12:30 Oseltamivir Phosphate (Tamiflu) 75 mg BID PO Last administered on 10/18/18 21:03; Admin Dose 75 MG; Start 10/15/18 at 09:00; Stop 10/20/18 at 08:59 Doxycycline Hyclate (Vibramycin) 100 mg BID PO Last administered on 10/18/18 21:03; Admin Dose 100 MG; Start 10/15/18 at 09:00; Stop 10/20/18 at 08:59 Meropenem/Sodium Chloride 50 ml @ 100 mls/hr Q8 IVPB Last administered on 10/18/18 14:21; Admin Dose 100 MLS/HR; Start 10/15/18 at 21:00 Vancomycin HCl 250 ml @ 125 mls/hr Q8H IVPB Last administered on 10/18/18 19:34; Admin Dose 125 MLS/HR; Start 10/15/18 at 19:00 Voriconazole 350 mg/Sodium Chloride 150 ml @ 50 mls/hr Q12H IVPB Last administered on 10/18/18 14:08; Admin Dose 50 MLS/HR; Start 10/16/18 at 12:30 Morphine Sulfate (morphine) 2 mg Q2H PRN IV PAIN LEVEL 6-10 Last administered on 10/17/18 14:39; Admin Dose 2 MG; Start 10/17/18 at 14:00 Ondansetron HCl (Zofran Inj) 4 mg Q6H PRN IV NAUSEA AND/OR VOMITING; Start 10/17/18 at 14:00 IV Flush (NS 3 ml) 3 ml PER PROTOCOL IV ; Start 10/17/18 at 14:00 Acetaminophen (Tylenol Tab) 325 mg Q6H PRN PO MILD PAIN(1-3)OR ELEVATED TEMP; Start 10/17/18 at 14:00 Amlodipine Besylate (Norvasc) 5 mg DAILY PO Last administered on 10/18/18 08:55; Admin Dose 5 MG; Start 10/18/18 at 09:00 KEM SMALL 14, 2019 21:44
[2018-10-19] VITALS (10 sets, daily range): BP systolic 130–156; BP diastolic 83–95; PULSE 127–146; RESP 18
[2018-10-19] MEDS: VORICONAZOLE IVPB SCH ×2 (02:02→12:29)
[2018-10-19] MEDS: SOD CHLORIDE 0.9% IVPB SCH ×2 (02:02→12:29)
[2018-10-19] MEDS: morphine 2 MG INJ IV PRN ×2 (02:11→05:05)
[2018-10-19] MEDS: HYDROmorphONE 1 MG/ML SYG IV PRN ×4 (03:54→16:16)
[2018-10-19] MEDS: VANCOMYCIN 1 GM 250 ML IVPB SCH ×2 (05:52→11:04)
--- NOTE | 2018-10-19 06:32 | PN ---
Date/Time of Note Date/Time of Note DATE: 10/19/18 TIME: 06:31 Assessment/Plan VTE Prophylaxis Risk score (from Nsg)>0 risk: 5 SCD applied (from Nsg): Yes Lines/Catheters IV Catheter Type (from Nrsg): Peripheral IV Assessment/Plan Hospital Course S: O: Constitutional: alert, oriented, no distress Head: atraumatic, normocephalic Neck: non-tender, supple, dressing covering L neck Respiratory: clear to auscultation, diminished with occ exp wheezing Cardiovascular: tachycardia Gastrointestinal: S/ NT /mildly distended / +BS Extremities: no edema, good radial pulses assessment and plan: 33 yo M with history of pure seminoma with pelvic, perianal, retroperitoneal, perirenal, mediastinal, supraclavicular metastases who presented with fevers, cough and tachycardia. He is being admitted for sepsis 2/2 Pneumonia. He is currently managed as follows : 1. Sepsis likely 2/2 bilateral pneumonia (HCAP) -ID managing abx 2. 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) -seems to be progressing despite treatment -per notes, patient has residual tumors and rising tumor markers -s/p tissue biopsy 10/17/18, f/u path -Patient also with malignant pleural effusion with associated lung collapse and malignant ascites (not tense) -appreciate oncology review and recs -attempted paracentesis, no fluid -Now also with large left atrial mass, differential includes metastases versus atrial myxoma -cardio recs: Would benefit from a tertiary center, where he could undergo cardiac MRI and possible tissue diagnosis and cardio-oncology specialty consultation 3. severe iron deficiency anemia -likely 2/2 metastatic cancer, s/p 2 units PRBC 4. Tachycardia -likely related to atrial mass 5. s/p TAMARA -likely prerenal from anemia, improved 6. chronic HTN - fair control on current meds -titrate as indicated dispo: -case mgt working on transfer, has been accepted at [facility], awaiting assignment of tele bed -Path report will need to be faxed to [facility] once available -patient is not a candidate for o/p f/u based on persistent fevers and tachycardia -continue in house monitoring and mgt -continue supportive care . Result Diagram: 10/16/18 0611 10/18/18 0551 Exam/Review of Systems Exam Vitals Vital Signs Date Temp Pulse Resp B/P (MAP) Pulse Ox O2 O2 Flow FiO2 Time Delivery Rate 10/19/18 99.6 131 18 156/95 91 04:40 (115) 10/18/18 Room Air 15:44 Intake and Output 10/18/18 10/18/18 10/19/18 1515:00 23:00 07:00 IntakeIntake Total 360 ml 590 ml BalanceBalance 360 ml 590 ml Medications Medication Current Medications Acetaminophen/ Hydrocodone Bitart ([place] (5/325)) 1 tab Q6H PRN PO PAIN Last administered on 10/17/18 14:38; Admin Dose 1 TAB; Start 10/12/18 at 22:30 Metoprolol Succinate (Toprol Xl) 50 mg DAILY PO Last administered on 10/18/18at 08:12; Admin Dose 50 MG; Start 10/13/18 at 09:00 IV Flush (NS 3 ml) 3 ml PER PROTOCOL IV ; Start 10/12/18 at 22:30 Ondansetron HCl (Zofran Inj) 4 mg Q6H PRN IV NAUSEA/VOMITING; Start 10/12/18 at 22:30 Acetaminophen (Tylenol Tab) 650 mg Q6H PRN PO .PAIN 1-3 OR TEMP Last administered on 10/18/18at 20:53; Admin Dose 650 MG; Start 10/12/18 at 22:30 Docusate Sodium (Colace) 100 mg Q12H PRN PO .CONSTIPATION; Start 10/12/18 at 22:30 Bisacodyl (Dulcolax) 5 mg DAILY PRN PO .CONSTIPATION; Start 10/12/18 at 22:30 Enoxaparin Sodium (Lovenox) 40 mg DAILY SC Last administered on 10/14/18at 09:04; Admin Dose 40 MG; Start 10/13/18 at 09:00; Status Hold Docusate Sodium (Colace) 100 mg BID PO Last administered on 10/18/18at 21:03; Admin Dose 100 MG; Start 10/13/18 at 02:30 Polyethylene Glycol (Miralax) 17 gm DAILY PO Last administered on 10/18/18at 08:13; Admin Dose 17 GM; Start 10/13/18 at 02:30 Vancomycin HCl (Vanco Iv Per Pharmacy) VANCOMYCIN PER PHARMACY PER PROTOCOL XX ; Start 10/13/18 at 06:00 Simethicone (Mylicon) 80 mg QID PRN PO DISTENSION/GAS/BLOATING Last administered on 10/16/18 23:47; Admin Dose 80 MG; Start 10/13/18 at 16:00 Hydromorphone HCl (Dilaudid) 1 mg Q4H PRN IV SEVERE PAIN LEVEL 7-10 Last administered on 10/19/18 03:54; Admin Dose 1 MG; Start 10/14/18 at 12:30 Oseltamivir Phosphate (Tamiflu) 75 mg BID PO Last administered on 10/18/18 21:03; Admin Dose 75 MG; Start 10/15/18 at 09:00; Stop 10/20/18 at 08:59 Doxycycline Hyclate (Vibramycin) 100 mg BID PO Last administered on 10/18/18 21:03; Admin Dose 100 MG; Start 10/15/18 at 09:00; Stop 10/20/18 at 08:59 Meropenem/Sodium Chloride 50 ml @ 100 mls/hr Q8 IVPB Last administered on 10/18/18 23:00; Admin Dose 100 MLS/HR; Start 10/15/18 at 21:00 Vancomycin HCl 250 ml @ 125 mls/hr Q8H IVPB Last administered on 10/19/18 05:52; Admin Dose 125 MLS/HR; Start 10/15/18 at 19:00 Voriconazole 350 mg/Sodium Chloride 150 ml @ 50 mls/hr Q12H IVPB Last administered on 10/19/18 02:02; Admin Dose 50 MLS/HR; Start 10/16/18 at 12:30 Morphine Sulfate (morphine) 2 mg Q2H PRN IV PAIN LEVEL 6-10 Last administered on 10/19/18 05:05; Admin Dose 2 MG; Start 10/17/18 at 14:00 Ondansetron HCl (Zofran Inj) 4 mg Q6H PRN IV NAUSEA AND/OR VOMITING; Start 10/17/18 at 14:00 IV Flush (NS 3 ml) 3 ml PER PROTOCOL IV ; Start 10/17/18 at 14:00 Acetaminophen (Tylenol Tab) 325 mg Q6H PRN PO MILD PAIN(1-3)OR ELEVATED TEMP; Start 10/17/18 at 14:00 Amlodipine Besylate (Norvasc) 5 mg DAILY PO Last administered on 10/18/18at 08:55; Admin Dose 5 MG; Start 10/18/18 at 09:00 BENJAMIN NOONAN Oct 19, 2018 06:32
[2018-10-19] MEDS: MEROPENEM 1 GM/50ML(PMX) 50 ML IVPB SCH ×2 (07:21→14:10)
[2018-10-19] MEDS: POLYETHYLENE GLYCOL 17 GM PACKET PO SCH (08:03)
[2018-10-19] MEDS: DOXYCYCLINE 100 MG TAB PO SCH (08:03)
[2018-10-19] MEDS: AMLODIPINE 5 MG TAB PO SCH (08:04)
[2018-10-19] MEDS: OSELTAMIVIR 75 MG CAP PO SCH (08:04)
[2018-10-19] MEDS: METOPROLOL (XL) 50 MG TAB PO SCH (08:05)
[2018-10-19] MEDS: DOCUSATE SODIUM 100 MG CAP PO SCH (08:05)
--- NOTE | 2018-10-19 11:32 | DS ---
Date/Time of Note Date/Time of Note DATE: 10/19/18 TIME: 11:27 Discharge Summary Admission/Discharge Info Admit Date/Time Oct 12, 2018 at 21:37 Discharge Date/Time Discharge Diagnosis 33 yo M with history of pure seminoma with pelvic, perianal, retroperitoneal, perirenal, mediastinal, supraclavicular metastases who presented with fevers, cough and tachycardia. He is being admitted for sepsis 2/2 Pneumonia. He is currently managed as follows : 1. Sepsis likely 2/2 bilateral pneumonia (HCAP) 2. 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) -seems to be progressing despite treatment -per notes, patient has residual tumors and rising tumor markers -s/p tissue biopsy 10/17/18, f/u path -Patient also with malignant pleural effusion with associated lung collapse and malignant ascites (not tense) -attempted paracentesis, no fluid -Now also with large left atrial mass, differential includes metastases versus atrial myxoma -cardio recs: Would benefit from a tertiary center, where he could undergo cardiac MRI and possible tissue diagnosis and cardio-oncology specialty consultation 3. severe iron deficiency anemia -likely 2/2 metastatic cancer, s/p 1 unit PRBC 4. Tachycardia -likely related to atrial mass 5. s/p TAMARA -likely prerenal from anemia, improved 6. chronic HTN - fair control on current meds -titrate as indicated . Patient Condition: Stable Consults Oncology: Cat QUIROS Cardiology: Vernell Morales Surgery: Sharan Mojica MD Infectious disease: Nany Sapp MD Pulmonary : Rupert Cervantes MD . Hospital Course 33-year-old unfortunate male with a history of metastatic testicular seminoma who had presented to emergency room with fever and cough for the last 3 days. He also was noted to have a left lateral neck mass that was concerning for metastasis that was worsening. Initial imaging in the emergency room with a chest x-ray did show patchy left basilar infiltrate with small left pleural effusion and so patient was admitted for sepsis likely secondary to urinary tract infection. However subsequently he underwent a CAT scan of the neck that showed metastatic nodes in the left supraclavicular fossa with areas of inessa necrosis and CT of the chest abdomen and pelvis that showed diffuse metastasis involving paraesophageal adenopathy, involving the liver, involving retroperitoneal and intraperitoneal adenopathy, new to my vision in the left kidney but with left renal stent in place new mild to moderate pelvic ascites as well as new bilateral pleural effusions with near complete atelectasis of left lower lobe. There was also concern for mass-effect on the IVC from adenopathy for which intraluminal extension could not be excluded. Based on the CT, inpatient oncology recommended that patient undergo a surgical tissue biopsy of the nodes in his left lower neck. They did not want fine- needle biopsy, because there was concern that this could be a different cancer from previous seminoma, specifically possibly a teratoma even though this was more likely that the patient had progression of his prior seminoma. In interim though he was also treated with broad-spectrum antibiotics under the care of ID for which multiple cultures were sent all of which have so far been negative. He was also found to be persistently tachycardic, this was originally thought to be secondary to sepsis, but patient did report that he had been tachycardic even before feeling sick and then echocardiogram showed a left atrial mass. Regarding sepsis: Patient has been on antifungal, antibacterial, vancomycin, as well as antiviral Tamiflu, with improvement in WBC count even though he continues to have fever spikes. Blood cultures have been negative, urine culture has been negative, influenza screen was also negative. He is currently continued on that regimen. Regarding metastatic seminoma: Patient is status post tissue biopsy intraoperatively of the lymph nodes in his left neck. The pathology is still pending at this time. Pathology will be faxed over to [facility] once available. We will defer to oncology on how to proceed after that. Patient's outpatient oncologist is Dr. Abhay Pérez Regarding persistent tachycardia and left atrial mass: Patient is being transferred to [facility] for higher level of care. Cardiology feels he needs a cardiac MRI at this time and possible resection of the mass. Decision on if or how to resect the mass can only be made after cardiac MRI has been done. Unfortunately that cannot be done at this facility hence warranting higher level of care. Patient has been accepted by cardiothoracic surgery at [facility]. Patient also with chronic he was transfused 1 unit of packed red cells hypochromic microcytic anemia:, Hemoglobin has stayed stable since Regarding mild to moderate ascites seen on CT: Ultrasound-guided paracentesis was attempted but was unsuccessful as there was 2 L fluid. Regarding left-sided pleural effusion with associated possible lung collapse and left lower lobe, pulmonary is recommending awaiting biopsy results prior to any kind of intervention. Patient remains clinically and hemodynamically stable aside from tachycardia. New complaint today is left lower extremity nerve like pain. Patient complaining of knee pain radiating from his groin down his left leg. As of this time I have recommended possible lower extremity Dopplers to evaluate, but as patient is being transferred, he can follow-up with accepting hospitalist at [facility]. Patient has been evaluated in detail in detail, and is stable for discharge . Home Meds Active Scripts Hydrocodone/Acetaminophen ([place] 5-325 Tablet) 1 Each Tablet, 1 TAB PO Q6H PRN for PAIN, #20 TAB Prov:KIN BUENO 09/12/18 Amlodipine Besylate* (Norvasc*) 5 Mg Tablet, 5 MG PO DAILY, #60 TAB Prov:HAFSA BARRERA 01/09/18 Metoprolol Succinate* (Toprol XL*) 50 Mg Tab.er.24h, 50 MG PO DAILY, #60 TAB Prov:HAFSA BARRERA 01/09/18 Reported Medications Hydromorphone Hcl* (Dilaudid*) 2 Mg Tablet, 2 MG PO Q3H PRN for PAIN, TAB 10/12/18 Amoxicillin/Potassium Clav (Amox-Clav 875-125 mg Tablet) 875-125 mg Tab, 1 TAB PO BID, #20 TAB 10/12/18 Methyl Salicylate/Menthol ([place] Greaseless Cream) 57 Gm Cream..g., 57 GM TP 09/12/18 Hydrochlorothiazide* (Hydrochlorothiazide*) 12.5 Mg Tablet, 12.5 MG PO DAILY for 90 Days, #90 09/12/18 Discontinued Reported Medications Ibuprofen* (Ibuprofen*) 600 Mg Tablet, 600 MG PO Q8 PRN for PRN, TAB 01/05/18 Follow-up Plan Transferred to [facility] . Primary Care Provider Torsten Lee MD Time spent on discharge: > 30 minutes BENJAMIN NOONAN Oct 19, 2018 11:32
--- NOTE | 2018-10-19 12:40 | CONS ---
Consult Date/Type/Reason Admit Date/Time Oct 12, 2018 at 21:37 Initial Consult Date 10/16/18 Type of Consult Pulmonary Requesting Provider: BENJAMIN NOONAN Date/Time of Note DATE: 10/19/18 TIME: 12:40 Subjective Patient stable no respiratory distress Objective Vital Signs Date Temp Pulse Resp B/P (MAP) Pulse Ox O2 O2 Flow FiO2 Time Delivery Rate 10/19/18 143 12:16 10/19/18 101.3 18 135/86 97 Room Air 11:48 (102) Intake and Output 10/18/18 10/18/18 10/19/18 1515:00 23:00 07:00 IntakeIntake Total 360 ml 590 ml 2000 ml BalanceBalance 360 ml 590 ml 2000 ml Exam GENERAL: VITAL SIGNS: per chart NECK: Supple. No JVD or lymphadenopathy. CARDIAC EXAM: S1, S2. No added sounds or murmurs. CHEST: clear bilaterally, No added sounds, rales or wheezes ABDOMEN: Soft, nontender. No guarding or rebound. EXTREMITIES: No cyanosis, clubbing or edema. NEUROLOGIC: Generalized weakness. No focal deficits. Results/Medications Result Diagram: 10/16/18 0611 10/18/18 0551 Medications Current Medications Acetaminophen/ Hydrocodone Bitart ([place] (5/325)) 1 tab Q6H PRN PO PAIN Last administered on 10/17/18at 14:38; Admin Dose 1 TAB; Start 10/12/18 at 22:30 Metoprolol Succinate (Toprol Xl) 50 mg DAILY PO Last administered on 10/19/18at 08:05; Admin Dose 50 MG; Start 10/13/18 at 09:00 IV Flush (NS 3 ml) 3 ml PER PROTOCOL IV ; Start 10/12/18 at 22:30 Ondansetron HCl (Zofran Inj) 4 mg Q6H PRN IV NAUSEA/VOMITING; Start 10/12/18 at 22:30 Acetaminophen (Tylenol Tab) 650 mg Q6H PRN PO .PAIN 1-3 OR TEMP Last administered on 10/18/18at 20:53; Admin Dose 650 MG; Start 10/12/18 at 22:30 Docusate Sodium (Colace) 100 mg Q12H PRN PO .CONSTIPATION; Start 10/12/18 at 22:30 Bisacodyl (Dulcolax) 5 mg DAILY PRN PO .CONSTIPATION; Start 10/12/18 at 22:30 Enoxaparin Sodium (Lovenox) 40 mg DAILY SC Last administered on 10/14/18 09:04; Admin Dose 40 MG; Start 10/13/18 at 09:00; Status Hold Docusate Sodium (Colace) 100 mg BID PO Last administered on 10/19/18 08:05; Admin Dose 100 MG; Start 10/13/18 at 02:30 Polyethylene Glycol (Miralax) 17 gm DAILY PO Last administered on 10/19/18 08:03; Admin Dose 17 GM; Start 10/13/18 at 02:30 Vancomycin HCl (Vanco Iv Per Pharmacy) VANCOMYCIN PER PHARMACY PER PROTOCOL XX ; Start 10/13/18 at 06:00 Simethicone (Mylicon) 80 mg QID PRN PO DISTENSION/GAS/BLOATING Last administered on 10/16/18 23:47; Admin Dose 80 MG; Start 10/13/18 at 16:00 Hydromorphone HCl (Dilaudid) 1 mg Q4H PRN IV SEVERE PAIN LEVEL 7-10 Last administered on 10/19/18 12:21; Admin Dose 1 MG; Start 10/14/18 at 12:30 Oseltamivir Phosphate (Tamiflu) 75 mg BID PO Last administered on 10/19/18 08:04; Admin Dose 75 MG; Start 10/15/18 at 09:00; Stop 10/20/18 at 08:59 Doxycycline Hyclate (Vibramycin) 100 mg BID PO Last administered on 10/19/18 08:03; Admin Dose 100 MG; Start 10/15/18 at 09:00; Stop 10/20/18 at 08:59 Meropenem/Sodium Chloride 50 ml @ 100 mls/hr Q8 IVPB Last administered on 10/19/18 07:21; Admin Dose 100 MLS/HR; Start 10/15/18 at 21:00 Vancomycin HCl 250 ml @ 125 mls/hr Q8H IVPB Last administered on 10/19/18 11:04; Admin Dose 125 MLS/HR; Start 10/15/18 at 19:00 Voriconazole 350 mg/Sodium Chloride 150 ml @ 50 mls/hr Q12H IVPB Last administered on 3/15/19at 12:29; Admin Dose 50 MLS/HR; Start 10/16/18 at 12:30 Morphine Sulfate (morphine) 2 mg Q2H PRN IV PAIN LEVEL 6-10 Last administered on 10/19/18at 05:05; Admin Dose 2 MG; Start 10/17/18 at 14:00 Ondansetron HCl (Zofran Inj) 4 mg Q6H PRN IV NAUSEA AND/OR VOMITING; Start 10/17/18 at 14:00 IV Flush (NS 3 ml) 3 ml PER PROTOCOL IV ; Start 10/17/18 at 14:00 Acetaminophen (Tylenol Tab) 325 mg Q6H PRN PO MILD PAIN(1-3)OR ELEVATED TEMP; Start 10/17/18 at 14:00 Amlodipine Besylate (Norvasc) 5 mg DAILY PO Last administered on 10/19/18at 08:04; Admin Dose 5 MG; Start 10/18/18 at 09:00 Assessment/Plan Hospital Course (Demo Recall) Assessment recommendations; 1. Patient admitted with shortness of breath due to likely left lower lobe obstructive pneumonia. 2. History of seminoma status post chemotherapy with extensive cervical, supraclavicular, mediastinal and ureteral regular adenopathy. Status post lymph node biopsy yesterday. 3. Small bilateral pleural effusions more pronounced on left side. Likely parapneumonic in etiology. Agree with discharge planning ESSIE FELDMAN MD, [facility] Oct 19, 2018 12:40
--- NOTE | 2018-10-19 13:48 | CONS ---
Assessment/Plan Assessment/Plan Hospital Course (Demo Recall) - sepsis due to pneumonia, HCAP - fever and leukocytosis improving - pneumonia, HCAP in an immunocompromised Pt. CT on 10/05/2018 showed new areas of alveolar consolidation/atelectasis of lower lobe, L>R. There was near complete LLL atelectasis/consolidation, atelectasis of the lingula, subsegmental atelectasis anterior medial RML, minimal passive atelectasis/dependent related change posterior upper lobes, mo suspicious nodules. - dry cough, concerning for viral bronchitis, fungal pneumonia is also considered - immunocompromised status: metastatic testicular CA, s/p chemo - testicular CA with pelvic, perianal, retroperitoneal, perirenal, mediastinal, supraclavicular metastases, recurrent s/p 4 cycles of chemo last given in 04/2018 - daily fever, due to pneumonia but also due to metastatic CA - h/o hydroureter due to testicular CA s/p insertion of L ureteral JJ stent placement in 01/2018 Resulted: TB Quant Gold negative, Crypto not detected, Histo <0.5, Influenza A/B EIA not detected, Influenza A/B PCR not detected, Urine legionella not detected, Respiratory virus panel negative Recommendations: - Pending: procalcitonin (pending), coccidioides serology, - Continue IV vancomycin (10/12/2018-), meropenem (10/14/2018-); - Continue PO doxycycline (10/15/2018-) for atypical coverage, ordered for 5 days; empiric PO oseltamivir (10/15/2018-) for a high clinical suspicion of influenza bronchitis, ordered for 5 days; and IV voriconazole for empiric antifungal coverage - [place] culture now and HIV screen - ordered - F/u lymph node biopsy results Management d/w patient, and with Dr. Gilliland. Thank you Consultation Date/Type/Reason Admit Date/Time Oct 12, 2018 at 21:37 Initial Consult Date 10/14/18 Type of Consult ID Requesting Provider: BENJAMIN NOONAN Date/Time of Note DATE: 10/19/18 TIME: 13:37 24 HR Interval Summary Free Text/Dictation The patient has planning for transfer to higher level tertiary care at [facility]. This will occur at 1800 today. Patient febrile 101.3. Per d/w patient, he states when he has fevers usually his face becomes very hot but today he did not feel feverish. He states that overnight his left thigh began to have an aching pain that was radiating down towards his knee and that he thought his knee was swollen. Now he says he does not feel it anymore and that his knee is improved. States last night he could not bend his knee but today he is able to. Denies cough, n/v/d, dysuria, pruritis, rash. Exam/Review of Systems Exam Vitals Vital Signs Date Temp Pulse Resp B/P (MAP) Pulse Ox O2 O2 Flow FiO2 Time Delivery Rate 10/19/18 143 12:16 10/19/18 101.3 18 135/86 97 Room Air 11:48 (102) Intake and Output 10/18/18 10/18/18 10/19/18 1515:00 23:00 07:00 IntakeIntake Total 360 ml 590 ml 2000 ml BalanceBalance 360 ml 590 ml 2000 ml Allergies Coded Allergies No Known Allergy (Unverified10/12/18) Exam Constitutional: alert, oriented, well developed, other (resting comfortably in bed. Psych: no complaints, nl mood/affect Head: normocephalic, atraumatic Eyes: nl conjunctiva, nl lids, nl sclera ENMT: nl external ears & nose, nl nasal mucosa & septum, mucosa pink and moist Neck: supple, other (+ cervical lymphadenopathy; there is a c/d/i dressing on patient's left neck [bx site]) Respiratory: clear to auscultation, normal air movement, diminished breath sounds (bibasillarly) Cardiovascular: regular rate and rhythm, nl pulses Gastrointestinal: soft, non-tender, bowel sounds (normoactive) Musculoskeletal: nl extremities to inspection, other (pt's boyd knees with full ROM when tested in bed. Extremities: normal pulses; No edema Neurological: [employer] II-XII intact, nl mental status, nl speech, nl strength Skin: nl turgor; No rash or lesions Results Result Diagram: 10/16/18 0611 10/18/18 0551 Medications Medication Current Medications Acetaminophen/ Hydrocodone Bitart ([place] (5/325)) 1 tab Q6H PRN PO PAIN Last administered on 10/17/18at 14:38; Admin Dose 1 TAB; Start 10/12/18 at 22:30 Metoprolol Succinate (Toprol Xl) 50 mg DAILY PO Last administered on 10/19/18 08:05; Admin Dose 50 MG; Start 10/13/18 at 09:00 IV Flush (NS 3 ml) 3 ml PER PROTOCOL IV ; Start 10/12/18 at 22:30 Ondansetron HCl (Zofran Inj) 4 mg Q6H PRN IV NAUSEA/VOMITING; Start 10/12/18 at 22:30 Acetaminophen (Tylenol Tab) 650 mg Q6H PRN PO .PAIN 1-3 OR TEMP Last administered on 10/18/18 20:53; Admin Dose 650 MG; Start 10/12/18 at 22:30 Docusate Sodium (Colace) 100 mg Q12H PRN PO .CONSTIPATION; Start 10/12/18 at 22:30 Bisacodyl (Dulcolax) 5 mg DAILY PRN PO .CONSTIPATION; Start 10/12/18 at 22:30 Enoxaparin Sodium (Lovenox) 40 mg DAILY SC Last administered on 10/14/18 09:04; Admin Dose 40 MG; Start 10/13/18 at 09:00; Status Hold Docusate Sodium (Colace) 100 mg BID PO Last administered on 10/19/18 08:05; Admin Dose 100 MG; Start 10/13/18 at 02:30 Polyethylene Glycol (Miralax) 17 gm DAILY PO Last administered on 10/19/18 08:03; Admin Dose 17 GM; Start 10/13/18 at 02:30 Vancomycin HCl (Vanco Iv Per Pharmacy) VANCOMYCIN PER PHARMACY PER PROTOCOL XX ; Start 10/13/18 at 06:00 Simethicone (Mylicon) 80 mg QID PRN PO DISTENSION/GAS/BLOATING Last administered on 10/16/18 23:47; Admin Dose 80 MG; Start 10/13/18 at 16:00 Hydromorphone HCl (Dilaudid) 1 mg Q4H PRN IV SEVERE PAIN LEVEL 7-10 Last administered on 10/19/18 12:21; Admin Dose 1 MG; Start 10/14/18 at 12:30 Oseltamivir Phosphate (Tamiflu) 75 mg BID PO Last administered on 10/19/18 08:04; Admin Dose 75 MG; Start 10/15/18 at 09:00; Stop 10/20/18 at 08:59 Doxycycline Hyclate (Vibramycin) 100 mg BID PO Last administered on 10/19/18at 08:03; Admin Dose 100 MG; Start 10/15/18 at 09:00; Stop 10/20/18 at 08:59 Meropenem/Sodium Chloride 50 ml @ 100 mls/hr Q8 IVPB Last administered on 10/19/18at 07:21; Admin Dose 100 MLS/HR; Start 10/15/18 at 21:00 Vancomycin HCl 250 ml @ 125 mls/hr Q8H IVPB Last administered on 10/19/18at 11:04; Admin Dose 125 MLS/HR; Start 10/15/18 at 19:00 Voriconazole 350 mg/Sodium Chloride 150 ml @ 50 mls/hr Q12H IVPB Last administered on 10/19/18at 12:29; Admin Dose 50 MLS/HR; Start 10/16/18 at 12:30 Morphine Sulfate (morphine) 2 mg Q2H PRN IV PAIN LEVEL 6-10 Last administered on 10/19/18at 05:05; Admin Dose 2 MG; Start 10/17/18 at 14:00 Ondansetron HCl (Zofran Inj) 4 mg Q6H PRN IV NAUSEA AND/OR VOMITING; Start 10/17/18 at 14:00 IV Flush (NS 3 ml) 3 ml PER PROTOCOL IV ; Start 10/17/18 at 14:00 Acetaminophen (Tylenol Tab) 325 mg Q6H PRN PO MILD PAIN(1-3)OR ELEVATED TEMP; Start 10/17/18 at 14:00 Amlodipine Besylate (Norvasc) 5 mg DAILY PO Last administered on 10/19/18at 08:04; Admin Dose 5 MG; Start 10/18/18 at 09:00 TERESA HELLER NP Oct 19, 2018 13:47
[2018-10-19] MEDS: ACETAMINOPHEN 325 MG TAB PO PRN (16:16)
--- NOTE | 2018-10-19 17:48 | CONS ---
Assessment/Plan Assessment/Plan Assessment/Plan (Daily) Supraclavicular lymph node biopsy performed but unfortunately is not diagnostic due to crush artifact. Further cardiac work-up revealed left atrial mass on TTE. Cardiology and cardiothoracic surgery recommend transfer to tertiary care center for further evaluation and management. His primary oncologist, Dr. Adrian, was made aware of the plan to transfer to [facility] today. Consultation Date/Type/Reason Admit Date/Time Oct 12, 2018 at 21:37 Initial Consult Date 10/14/18 Type of Consult Hematology-Oncology Consult Requesting Provider: BENJAMIN NOONAN Date/Time of Note DATE: 10/19/18 TIME: 17:44 24 HR Interval Summary Free Text/Dictation . Exam/Review of Systems Exam Vitals Vital Signs Date Temp Pulse Resp B/P (MAP) Pulse Ox O2 O2 Flow FiO2 Time Delivery Rate 10/19/18 99.0 17:07 10/19/18 146 16:22 10/19/18 18 130/87 95 Room Air 15:17 (101) Intake and Output 10/18/18 10/18/18 10/19/18 1515:00 23:00 07:00 IntakeIntake Total 360 ml 590 ml 2000 ml BalanceBalance 360 ml 590 ml 2000 ml Results Result Diagram: 10/16/18 0611 10/18/18 0551 Medications Medication Current Medications Acetaminophen/ Hydrocodone Bitart ([place] (5/325)) 1 tab Q6H PRN PO PAIN Last administered on 10/17/18at 14:38; Admin Dose 1 TAB; Start 10/12/18 at 22:30 Metoprolol Succinate (Toprol Xl) 50 mg DAILY PO Last administered on 10/19/18at 08:05; Admin Dose 50 MG; Start 10/13/18 at 09:00 IV Flush (NS 3 ml) 3 ml PER PROTOCOL IV ; Start 10/12/18 at 22:30 Ondansetron HCl (Zofran Inj) 4 mg Q6H PRN IV NAUSEA/VOMITING; Start 10/12/18 at 22:30 Acetaminophen (Tylenol Tab) 650 mg Q6H PRN PO .PAIN 1-3 OR TEMP Last administered on 10/19/18at 16:16; Admin Dose 650 MG; Start 10/12/18 at 22:30 Docusate Sodium (Colace) 100 mg Q12H PRN PO .CONSTIPATION; Start 10/12/18 at 22:30 Bisacodyl (Dulcolax) 5 mg DAILY PRN PO .CONSTIPATION; Start 10/12/18 at 22:30 Enoxaparin Sodium (Lovenox) 40 mg DAILY SC Last administered on 10/14/18 09:04; Admin Dose 40 MG; Start 10/13/18 at 09:00; Status Hold Docusate Sodium (Colace) 100 mg BID PO Last administered on 10/19/18 08:05; Admin Dose 100 MG; Start 10/13/18 at 02:30 Polyethylene Glycol (Miralax) 17 gm DAILY PO Last administered on 10/19/18 08:03; Admin Dose 17 GM; Start 10/13/18 at 02:30 Vancomycin HCl (Vanco Iv Per Pharmacy) VANCOMYCIN PER PHARMACY PER PROTOCOL XX ; Start 10/13/18 at 06:00 Simethicone (Mylicon) 80 mg QID PRN PO DISTENSION/GAS/BLOATING Last administered on 10/16/18at 23:47; Admin Dose 80 MG; Start 10/13/18 at 16:00 Hydromorphone HCl (Dilaudid) 1 mg Q4H PRN IV SEVERE PAIN LEVEL 7-10 Last administered on 10/19/18 16:16; Admin Dose 1 MG; Start 10/14/18 at 12:30 Oseltamivir Phosphate (Tamiflu) 75 mg BID PO Last administered on 10/19/18 08:04; Admin Dose 75 MG; Start 10/15/18 at 09:00; Stop 10/20/18 at 08:59 Doxycycline Hyclate (Vibramycin) 100 mg BID PO Last administered on 10/19/18 08:03; Admin Dose 100 MG; Start 10/15/18 at 09:00; Stop 10/20/18 at 08:59 Meropenem/Sodium Chloride 50 ml @ 100 mls/hr Q8 IVPB Last administered on 10/19/18 14:10; Admin Dose 100 MLS/HR; Start 10/15/18 at 21:00 Vancomycin HCl 250 ml @ 125 mls/hr Q8H IVPB Last administered on 10/19/18 11:04; Admin Dose 125 MLS/HR; Start 10/15/18 at 19:00 Voriconazole 350 mg/Sodium Chloride 150 ml @ 50 mls/hr Q12H IVPB Last administered on 10/19/18at 12:29; Admin Dose 50 MLS/HR; Start 10/16/18 at 12:30 Morphine Sulfate (morphine) 2 mg Q2H PRN IV PAIN LEVEL 6-10 Last administered on 10/19/18at 05:05; Admin Dose 2 MG; Start 10/17/18 at 14:00 Ondansetron HCl (Zofran Inj) 4 mg Q6H PRN IV NAUSEA AND/OR VOMITING; Start 10/17/18 at 14:00 IV Flush (NS 3 ml) 3 ml PER PROTOCOL IV ; Start 10/17/18 at 14:00 Acetaminophen (Tylenol Tab) 325 mg Q6H PRN PO MILD PAIN(1-3)OR ELEVATED TEMP; Start 10/17/18 at 14:00 Amlodipine Besylate (Norvasc) 5 mg DAILY PO Last administered on 10/19/18at 08:04; Admin Dose 5 MG; Start 10/18/18 at 09:00 NATASHA KLEIN MD Oct 19, 2018 17:48
--- NOTE | 2018-10-19 17:57 | RADRPT ---
Vent Rate: 162 bpm RR Interval: [address] Interval: 112 msec QRS Duration: 78 msec QT Interval: 250 msec QTC Interval: 410 msec P-R-T [place]: 54 - 64 - 55 degrees Poor data quality, interpretation may be adversely affected Sinus tachycardia Otherwise normal ECG Electronically Signed By: Alpesh Shearer
== END 2018-10-19 18:53 | disposition short-term general hospital (02) | DRG 853 ==
LOC: E/R 19:42 → PP2 21:37 → 6WM 10-15 21:20
PROVIDERS: ADMIT Family Medicine; ATTEND Family Medicine
PROC: 30233N1 Transfusion of Nonautologous Red Blood Cells into Peripheral Vein, Percutaneous Approach (ICD-10-PCS; 2018-10-14)
PROC: 07B20ZX Excision of Left Neck Lymphatic, Open Approach, Diagnostic (ICD-10-PCS; principal; 2018-10-17 11:30)
DX: A41.9 Sepsis, unspecified organism (principal); J18.9 Pneumonia, unspecified organism; N17.9 Acute kidney failure, unspecified; J91.0 Malignant pleural effusion; J98.19 Other pulmonary collapse; R18.0 Malignant ascites; C77.8 Secondary and unspecified malignant neoplasm of lymph nodes of multiple regions; C79.00 Secondary malignant neoplasm of unspecified kidney and renal pelvis; C78.00 Secondary malignant neoplasm of unspecified lung; C78.7 Secondary malignant neoplasm of liver and intrahepatic bile duct; C79.89 Secondary malignant neoplasm of other specified sites; D63.0 Anemia in neoplastic disease; I10 Essential (primary) hypertension; R73.03 Prediabetes; M25.562 Pain in left knee; Z85.47 Personal history of malignant neoplasm of testis
CPT/HCPCS: 36415; 36430; 70492; 71045; 71260; 74177; 76705; 80053; 80061; 80202; 81001; 82565; 82728; 83036; 83540; 83605; 83690; 83735; 83880; 84100; 84145; 84443; 84484; 84520; 85014; 85018; 85025; 85045; 85610; 85730; 86480; 86635; 86641; 86703; 86850; 86900; 86901; 86920; 87040; 87086; 87275; 87276; 87279; 87280; 87385; 87400; 87449; 87502; 88307; 88341; 88342; 93005; 93306; J0456; J0696; J1170; J1644; J1650; J2185; J2250; J2270; J2543; J2916; J3370; J3475; J7030; J7050; P9016; Q9967

== ENCOUNTER 2018-11-14 12:47 | Inpatient (IN) | payer BC ==
[~2018-11-14] VITALS: Ht 167.6 cm; Wt 75.4 kg
[~2018-11-14 12:47] MED LIST changes: +AMOX1TAB10 PO; +HYDR2TAB36 PO; -IBUP-1542 PO
[2018-11-14] MEDS ORDERED: SOD CHLORIDE 0.9% 500 ML IV STA (13:37)
--- NOTE | 2018-11-14 13:38 | ERD ---
ER Documentation Chief Complaint Chief Complaint NOSE BLEEDING ONSET 45 MINS AGO,ON ELIQUIS FOR HX OF PE,TESICULAR CANCER HPI 83-year-old man with a history of metastatic testicular carcinoma status post 5 days of chemotherapy about a week ago presents with epistaxis. He states this is his third episode of bleeding today. He does have a recent history of anemia and required transfusion of PRBCs last week, states since transfusion he has had continued dizziness, generalized weakness, and lightheadedness. He denies blood per rectum or melena, no cough, no fevers or chills, no vomiting or diarrhea. Patient was transferred from this hospital about a month ago to [facility] for suspected atrial myxoma although patient states he was later diagnosed with a pulmonary embolism and clots in the ventricle, and in fact he had no atrial myxoma and did not require surgical intervention. Since diagnosis of PE he has been using apixaban daily ROS All systems reviewed and are negative except as per history of present illness. Medications Home Meds Reported Medications Filgrastim* (Neupogen*) Unknown Strength Soln, 1 SC DAILY, VIAL 11/14/18 Apixaban* (Eliquis*) 5 Mg Tablet, 5 MG PO BID, TAB 11/14/18 Metoprolol Succinate* (Toprol XL*) 50 Mg Tab.er.24h, 50 MG PO DAILY, #30 TAB 11/14/18 Discontinued Reported Medications Hydromorphone Hcl* (Dilaudid*) 2 Mg Tablet, 2 MG PO Q3H PRN for PAIN, TAB 10/12/18 Amoxicillin/Potassium Clav (Amox-Clav 875-125 mg Tablet) 875-125 mg Tab, 1 TAB PO BID, #20 TAB 10/12/18 Methyl Salicylate/Menthol (Bengay Greaseless Cream) 57 Gm Cream..g., 57 GM TP 09/12/18 Hydrochlorothiazide* (Hydrochlorothiazide*) 12.5 Mg Tablet, 12.5 MG PO DAILY for 90 Days, #90 09/12/18 Discontinued Scripts Hydrocodone/Acetaminophen ([place] 5-325 Tablet) 1 Each Tablet, 1 TAB PO Q6H PRN for PAIN, #20 TAB Prov:KIN BUENO 09/12/18 Amlodipine Besylate* (Norvasc*) 5 Mg Tablet, 5 MG PO DAILY, #60 TAB Prov:HAFSA BARRERA 01/09/18 Metoprolol Succinate* (Toprol XL*) 50 Mg Tab.er.24h, 50 MG PO DAILY, #60 TAB Prov:HAFSA BARRERA 01/09/18 Allergies Allergies: Coded Allergies: No Known Allergy (Unverified , 11/14/18) PMhx/Soc Immunocompromise state, recent pneumonia, metastatic testicular carcinoma, left ureteral double-J stent, recent pulmonary embolism anticoagulated with apixaban, anemia, left atrial mass (although at [facility] he was told he had a small mass outside of the heart and while at that hospital he did develop a pulmonary embolism and was placed on apixaban therapy, so no intra-atrial or intraventricular mass currently) History of Surgery: Yes (Left testicular removed, stent on left kidney) Anesthesia Reaction: No Hx Neurological Disorder: No Hx Respiratory Disorders: No Hx Cardiac Disorders: Yes (HTN) Hx Psychiatric Problems: No Hx Miscellaneous Medical Probl: No Hx Alcohol Use: No Hx Substance Use: No Hx Tobacco Use: No Physical Exam Vitals Vital Signs Date Temp Pulse Resp B/P (MAP) Pulse Ox O2 O2 Flow FiO2 Time Delivery Rate 11/14/18 114 24 111/75 100 Room Air 14:00 (87) 11/14/18 97.9 120 18 122/66 100 12:49 (84) Physical Exam Const: No acute distress, afebrile, appears dehydrated HEENT: Pale conjunctival, pupils equal round reactive to light, no cervical spine deformity, dry mucous membranes, left epistaxis Resp: Clear to auscultation bilaterally Cardio: Tachycardic and regular Abd: Soft, non tender, non distended. Normal bowel sounds Skin: No petechiae or rashes Back: No midline or flank tenderness Ext: No cyanosis, or edema Neur: Awake and alert x3, no focal deficits or facial asymmetry Psych: Normal Mood and Affect Result Diagram: 11/14/18 1356 11/14/18 1356 Results 24 hrs Laboratory Tests Test 11/14/18 13:56 White Blood Count 8.9 10^3/ul Red Blood Count 2.97 10^6/ul Hemoglobin 7.1 g/dl Hematocrit 21.9 % Mean Corpuscular Volume 73.7 fl Mean Corpuscular Hemoglobin 23.9 pg Mean Corpuscular Hemoglobin Concent 32.4 g/dl Red Cell Distribution Width 19.8 % Platelet Count 42 10^3/UL Mean Platelet Volume 9.6 fl Immature Granulocytes % 11.400 % Neutrophils % % Segmented Neutrophils % (Manual) 45 % Band Neutrophils % (Manual) 24 % Lymphocytes % % Lymphocytes % (Manual) 14 % Monocytes % % Monocytes % (Manual) 11 % Eosinophils % % Basophils % % Metamyelocytes % (manual) 1 % Promyelocytes % (Manual) 1 % Blast Cells % (Manual) 4.0 % Nucleated Red Blood Cells % 1 % Immature Granulocytes # 1.020 10^3/ul Neutrophils # 10^3/ul Neutrophils # (Manual) 4.2 10^3/ul Band Neutrophils # 2.1 10^3/ul Lymphocytes (Manual) 1.2 10^3/ul Lymphocytes # 10^3/ul Monocytes # 10^3/ul Monocytes # (Manual) 0.9 10^3/ul Eosinophils # 10^3/ul Basophils # 10^3/ul Metamyelocytes # 0.0 10^3/ul Promyelocytes # 0.0 10^3/ul Nucleated Red Blood Cells # 10^3/ul Pathologist Review (Hematology) White Cell Morphology Comment @See below Platelet Estimate DECREASED Polychromasia 1+ Hypochromasia 2+ Anisocytosis 2+ Microcytosis 2+ Red Cell Morphology Comment @See below Prothrombin Time 15.3 Sec Prothrombin Time Ratio 1.2 INR International Normalized Ratio 1.20 Activated Partial Thromboplast Time 34.8 Sec Path Consult Signing Pathologist RAMON HAIDER MD Sodium Level 139 mmol/L Potassium Level 3.1 mmol/L Chloride Level 108 mmol/L Carbon Dioxide Level 22 mmol/L Anion Gap 9 Blood Urea Nitrogen 12 mg/dl Creatinine 0.93 mg/dl Est Glomerular Filtrat Rate mL/min > 60 mL/min Glucose Level 110 mg/dl Calcium Level 9.0 mg/dl Lipase 381 U/L Current Medications Medications Dose Sig/Vasyl Start Time Status Last (Trade) Ordered Route PRN Stop Time Admin Dose Reason Admin Sodium 500 ml @ Q1H STAT 11/14/18 DC 11/14/18 Chloride 500 mls/hr IV 13:37 14:06 11/14/18 14:36 1 mg ONCE STAT 11/14/18 DC 11/14/18 Hydromorphone IV 14:50 14:55 HCl 11/14/18 14:51 (Dilaudid) Potassium 1,000 ml @ Q10H IV 11/14/18 DC Chloride/Dext 100 mls/hr 15:10 melvin/ Sod Cl 11/14/18 15:15 Procedures/MDM IV line was established patient was placed on cardiac cath technologist rhythm strip revealed a sinus tachycardia at 110 bpm with upright P and T waves. Patient was afebrile I administered 500 cc normal saline IV and hydromorphone 1 mg IV for complaints of pain. Nasal clip was applied to the naris for epistaxis which resolved here in the ER after about 30 minutes. CBC reveals anemia at 7.1, electrolytes revealed mild hypokalemia, platelets low at 42,000 Given the patient's recent bleeding and apixaban therapy I administered PRBC IV transfusion 2 units over 4 hours Patient will be admitted to telemetry setting for continued management and transfusion Departure Diagnosis: Primary Impression: Epistaxis Additional Impressions: Symptomatic anemia Thrombocytopenia Testicular carcinoma Laterality: unspecified laterality Qualified Codes: C62.90 - Malignant neoplasm of unspecified testis, unspecified whether descended or undescended Condition: BRUCE Silva MD Nov 14, 2018 13:38
[2018-11-14] MEDS ORDERED: METO-319 PO (14:32)
[2018-11-14] MEDS ORDERED: APIX5TAB PO (14:32)
[2018-11-14] MEDS ORDERED: [UNRECOGNIZED DRUG - CODE] SC (14:35)
[2018-11-14] MEDS ORDERED: HYDROmorphONE 2 MG/ML SYG IV STA (14:50)
[2018-11-14] MEDS ORDERED: D5W-0.45 NACL + KCL 20 MEQ 1,000 ML IV SCH (15:10)
[2018-11-14] MEDS ORDERED: POTASSIUM CHLORIDE 100 ML IVPB SCH (15:30)
[2018-11-14] MEDS ORDERED: morphine 2 MG INJ IV PRN (15:30)
[2018-11-14] MEDS ORDERED: ACETAMINOPHEN 325 MG TAB PO PRN (15:30)
[2018-11-14] MEDS ORDERED: ONDANSETRON 4 MG INJ IV PRN (15:30)
[2018-11-14] MEDS ORDERED: NACL 0.9% 3 ML SYG IV SCH (15:30)
[2018-11-14] MEDS ORDERED: SOD CHLORIDE 0.9% 1,000 ML IV SCH (15:30)
--- NOTE | 2018-11-14 16:28 | HP ---
Date/Time of Note Date/Time of Note DATE: 11/14/18 TIME: 16:28 Assessment/Plan VTE Prophylaxis Pharmacological prophylaxis: NA/contraindicated, other Pharm contraindication: bleeding Lines/Catheters IV Catheter Type (from Nrs): PICC Line Central line still needed: No Assessment/Plan Hospital Course Patient is a male with a past medical history significant for testicular carcinoma, seminoma with metastases throughout the thorax which was diagnosed previously extensively during previous admission at [facility] who presents for persistent epistaxis. Patient was recently discharged from [facility] after he was transferred over here for higher level of care where he had multiple interventions including MRI of the heart, pleural effusion removal, and multiple bouts of antibiotics for multiple issues including pneumonia. Currently patient feels well, however has been placed on Eliquis at discharge from [facility] as he was diagnosed recently with PE and possible cardiac thrombus. Patient's has been suffering from nosebleed even at the other hospital however it was very mild and patient's hemoglobin had stayed stable. Patient stated that within the past week the nosebleeds have become more frequent and more severe which prompted him to come to the ED. Leopoldo gauthier otherwise has no other symptoms, patient states that his tachycardia right now is actually better than what it has been earlier in the week, patient denies chest pain, shortness of breath, headache, abdominal pain, nausea, vomiting, leg pain, urinary or bowel dysfunction. Objective Physical exam General: Patient is laying in bed and answers questions appropriately Mentation: Patient is alert and oriented 4, Head: Normocephalic atraumatic Eyes: EOMI, pupils reactive to light Neck: Supple, nontender, midline Respiratory: Clear to auscultation bilaterally Cardiovascular: regular rate, no obvious murmurs Gastrointestinal: non-tender to palpation, bowel sounds heard. Neurological: Moves all extremities spontaneously Skin: No new skin lesions Assessment and plan Severe anemia 2/2 epistaxis -Secondary to chronic disease as well as exacerbated by excessive epistaxis secondary to anticoagulation for PE with Eliquis -2 units will be ordered -Momentarily stable, not bleeding at this time, however will need to closely monitor -Patient's platelets are severely low likely possibly secondary to chemotherapy as well as other effects of metastatic carcinoma, I spoke with patient's oncol ogist associate, Dr. Owusu, who stated that patient's platelet heart too low to restart Eliquis at this time and patient will need at least a platelet of above 50. She will see the patient tomorrow. -Hold Eliquis Thrombocytopenia -Likely cause of bleeding, possibly due to effects of chemotherapy, will defer to oncology recommendations Metastatic testicular carcinoma, seminoma -Patient on chemotherapy outpatient with oncology, patient's oncologist associate has been consulted. -Recommendations appreciated, likely outpatient follow-up Tachycardia -Patient actually states that his tachycardia of 120 at this time is the best that is been in 1 month, patient has no symptoms at this time, will gently hydrate and continue patient's home metoprolol 50 XL Elevated lipase -No abdominal pain, likely secondary to other issues with cancer, monitor closely History of PE with questionable cardiac thrombus -Diagnosed at [facility] earlier this month, sent home on Eliquis, currently taking Eliquis twice a day Hypokalemia -Replete as needed History of hypertension -Metoprolol, BP is within normal limits at this time Disposition -Hold Eliquis, give packed red blood cell, awaiting oncologist recommendation for restarting of Eliquis Result Diagram: 11/14/18 1356 11/14/18 1356 Results 24hrs Laboratory Tests Test 11/14/18 13:56 White Blood Count 8.9 Red Blood Count 2.97 L Hemoglobin 7.1 L Hematocrit 21.9 L Mean Corpuscular Volume 73.7 L Mean Corpuscular Hemoglobin 23.9 L Mean Corpuscular Hemoglobin Concent 32.4 Red Cell Distribution Width 19.8 H Platelet Count 42 #L Mean Platelet Volume 9.6 Immature Granulocytes % 11.400 H Neutrophils % Segmented Neutrophils % (Manual) 45 Band Neutrophils % (Manual) 24 H Lymphocytes % Lymphocytes % (Manual) 14 L Monocytes % Monocytes % (Manual) 11 Eosinophils % Basophils % Metamyelocytes % (manual) 1 H Promyelocytes % (Manual) 1 H Blast Cells % (Manual) 4.0 H Nucleated Red Blood Cells % 1 H Immature Granulocytes # 1.020 H Neutrophils # Neutrophils # (Manual) 4.2 Band Neutrophils # 2.1 H Lymphocytes (Manual) 1.2 Lymphocytes # Monocytes # Monocytes # (Manual) 0.9 Eosinophils # Basophils # Metamyelocytes # 0.0 Promyelocytes # 0.0 Nucleated Red Blood Cells # Pathologist Review (Hematology) White Cell Morphology Comment @See below Platelet Estimate DECREASED Polychromasia 1+ Hypochromasia 2+ Anisocytosis 2+ Microcytosis 2+ Red Cell Morphology Comment @See below Prothrombin Time 15.3 H Prothrombin Time Ratio 1.2 INR International Normalized Ratio 1.20 Activated Partial Thromboplast Time 34.8 Path Consult Signing Pathologist RAMON HAIDER MD Sodium Level 139 Potassium Level 3.1 L Chloride Level 108 Carbon Dioxide Level 22 Anion Gap 9 Blood Urea Nitrogen 12 Creatinine 0.93 Est Glomerular Filtrat Rate mL/min > 60 Glucose Level 110 Calcium Level 9.0 Lipase 381 H HPI/ROS Admit Date/Time Admit Date/Time PMH/Family/Social Past Medical History Medications Current Medications IV Flush (NS 3 ml) 3 ml PER PROTOCOL IV ; Start 11/14/18 at 15:30 Ondansetron HCl (Zofran Inj) 4 mg Q6H PRN IV NAUSEA/VOMITING; Start 11/14/18 at 15:30 Acetaminophen (Tylenol Tab) 650 mg Q6H PRN PO .PAIN 1-3 OR TEMP; Start 11/14/18 at 15:30 Morphine Sulfate (morphine) 2 mg Q4H PRN IV .PAIN 7-10; Start 11/14/18 at 15:30 Pantoprazole (Protonix Iv) 40 mg DAILY@06 IV ; Start 11/15/18 at 06:00 Sodium Chloride 1,000 ml @ 50 mls/hr Q20H IV ; Start 11/14/18 at 15:30 Potassium Chloride (Klor-Con 20) 40 meq Q4H PO ; Start 11/14/18 at 16:30; Stop 11/14/18 at 20:31; Status UNV Metoprolol Succinate (Toprol Xl) 50 mg DAILY PO ; Start 11/15/18 at 09:00; Status UNV Coded Allergies: No Known Allergy (Unverified , 11/14/18) Past Surgical History Past Surgical Hx: other Family History Significant Family History: no pertinent family hx Social History Smoking Status: Never smoker Exam/Review of Systems Vital Signs Vitals Vital Signs Date Temp Pulse Resp B/P (MAP) Pulse Ox O2 O2 Flow FiO2 Time Delivery Rate 11/14/18 114 24 111/75 100 Room Air 14:00 (87) 11/14/18 97.9 12:49 BRUCE DAVENOPRT Nov 14, 2018 16:28
[2018-11-14] MEDS ORDERED: POTASSIUM CHLORIDE (SR) 20 MEQ TAB PO SCH (16:30)
[2018-11-14 18:22] VITALS: Ht 167.6 cm; Wt 75.4 kg
[2018-11-14] MEDS ORDERED: OXYCODONE/ACETAMINOPHEN (10/325) TAB PO PRN (19:00)
[2018-11-14 19:59] VITALS: BP 107/69; PULSE 110; RESP 19
[2018-11-14 20:15] VITALS: BP 119/69; PULSE 110; RESP 19
[2018-11-14] MEDS: POTASSIUM CHLORIDE 20 MEQ POWDER FOR ORAL SOLN PO SCH (20:47)
[2018-11-14] MEDS: HYDROmorphONE 0.5 MG/0.5 ML SYG IV PRN (20:48)
[2018-11-15] MEDS: HYDROmorphONE 0.5 MG/0.5 ML SYG IV PRN ×4 (01:12→13:26)
[2018-11-15 01:28] VITALS: BP 118/76; PULSE 108; RESP 19
[2018-11-15] MEDS ORDERED: PANTOPRAZOLE 40 MG INJ IV SCH (06:00)
[2018-11-15 08:07] VITALS: BP 120/84; PULSE 108; RESP 18
[2018-11-15] MEDS: POTASSIUM CHLORIDE 20 MEQ POWDER FOR ORAL SOLN PO SCH (08:55)
[2018-11-15] MEDS ORDERED: METOPROLOL (XL) 50 MG TAB PO SCH (09:00)
--- NOTE | 2018-11-15 09:34 | PN ---
Date/Time of Note Date/Time of Note DATE: 11/15/18 TIME: 09:31 Assessment/Plan VTE Prophylaxis Risk score (from Ns)>0 risk: 5 SCD applied (from Ns): Yes Pharmacological prophylaxis: NA/contraindicated Pharm contraindication: bleeding, thrombocytopenia Lines[facility] Central line still needed: Yes Assessment/Plan Hospital Course Patient is a male with a past medical history significant for testicular carcinoma, seminoma with metastases throughout the thorax which was diagnosed previously extensively during previous admission at [facility] who presents for persistent epistaxis. Patient was recently discharged from [facility] after he was transferred over here for higher level of care where he had multiple interventions including MRI of the heart, pleural effusion removal, and multiple bouts of antibiotics for multiple issues including pneumonia. Currently patient feels well, however has been placed on Eliquis at discharge from [facility] as he was diagnosed recently with PE and possible cardiac thrombus. Patient's has been suffering from nosebleed even at the other hospital however it was very mild and patient's hemoglobin had stayed stable. Patient stated that within the past week the nosebleeds have become more frequent and more severe which prompted him to come to the ED. Patient otherwise has no other symptoms. He was admitted and transfused 1 unit if packed red cells yesterday and hgb is improved today. no further nose bleeds at this time Objective Physical exam General: Patient is laying in bed and answers questions appropriately Mentation: Patient is alert and oriented 4, Head: Normocephalic atraumatic Eyes: EOMI, pupils reactive to light Neck: Supple, nontender, midline Respiratory: Clear to auscultation bilaterally Cardiovascular: regular rate, no obvious murmurs Gastrointestinal: non-tender to palpation, bowel sounds heard. Neurological: Moves all extremities spontaneously Skin: No new skin lesions Assessment and plan Severe anemia 2/2 epistaxis -Secondary to chronic disease as well as exacerbated by excessive epistaxis secondary to anticoagulation for PE with Eliquis -s/p 1 unit PRBC -Patient's platelets are severely low secondary to chemotherapy as well as other effects of metastatic carcinoma, will confirm with oncology -Continue to Hold Eliquis Thrombocytopenia -Likely cause of bleeding, possibly due to effects of chemotherapy, no indication for platelet transfusion for now Metastatic testicular carcinoma, seminoma -Patient on chemotherapy outpatient with oncology, patient's oncologist associate has been consulted. -Recommendations appreciated, likely outpatient follow-up Tachycardia -Patient actually states that his tachycardia of 120 at this time is the best that is been in 1 month, patient has no symptoms at this time, will gently hydrate and continue patient's home metoprolol 50 XL -improved HR Elevated lipase -No abdominal pain, likely secondary to other issues with cancer, monitor closely History of PE with questionable cardiac thrombus -Diagnosed at [facility] earlier this month, sent home on Eliquis, was taking Eliquis twice a day Hypokalemia -Replete as needed History of hypertension -Metoprolol, BP is within normal limits at this time Disposition -patient desirous of d/c, though wants something for pain at this time -will speak wit his oncologist for further recommendations and discharge requirements Result Diagram: 11/15/18 0459 11/15/18 0459 Results 24hrs Laboratory Tests Test 11/14/18 13:56 11/15/18 04:00 11/15/18 04:59 11/15/18 06:36 White Blood 8.9 12.6 #H Count Red Blood Count 2.97 L 3.30 L Hemoglobin 7.1 L 8.1 L Hematocrit 21.9 L 25.1 L Mean Corpuscular 73.7 L 76.1 L Volume Mean Corpuscular 23.9 L 24.5 L Hemoglobin Mean Corpuscular 32.4 32.3 Hemoglobin Letty nt Red Cell 19.8 H 20.6 H Distribution Width Platelet Count 42 #L 39 L Mean Platelet 9.6 9.1 Volume Immature 11.400 H 15.100 H Granulocytes % Neutrophils % Segmented 45 66 Neutrophils % (Manual) Band Neutrophils 24 H 2 % (Manual) Lymphocytes % Lymphocytes % 14 L 14 L (Manual) Monocytes % Monocytes % 11 7 (Manual) Eosinophils % Basophils % Metamyelocytes % 1 H (manual) Promyelocytes % 1 H 6 H (Manual) Blast Cells % 4.0 H (Manual) Nucleated Red 1 H 1 H Blood Cells % Immature 1.020 H 1.910 H Granulocytes # Neutrophils # Neutrophils # 4.2 8.3 H (Manual) Band Neutrophils 2.1 H 0.2 # Lymphocytes 1.2 1.7 (Manual) Lymphocytes # Monocytes # Monocytes # 0.9 0.8 (Manual) Eosinophils # Basophils # Metamyelocytes # 0.0 Promyelocytes # 0.0 0.7 H Nucleated Red Blood Cells # Pathologist Review (Hematolo gy) White Cell @See below Morphology Comment Platelet DECREASED DECREASED Estimate Polychromasia 1+ 3+ Hypochromasia 2+ 1+ Anisocytosis 2+ 3+ Microcytosis 2+ 3+ Red Cell @See below Morphology Comment Prothrombin Time 15.3 H Prothrombin Time 1.2 Ratio INR 1.20 International Normalized Ratio Activated 34.8 Partial Thrombop last Time Path Consult RAMON HAIDER Signing Patholog , ist Sodium Level 139 142 Potassium Level 3.1 L 3.5 Chloride Level 108 112 H Carbon Dioxide 22 24 Level Anion Gap 9 6 Blood Urea 12 11 Nitrogen Creatinine 0.93 0.95 Est Glomerular > 60 > 60 Filtrat Rate mL/min Glucose Level 110 86 Calcium Level 9.0 8.9 Lipase 381 H Hemoglobin A1c 5.6 Myelocytes % 5 H (Manual) Myelocytes # 0.6 H Toxic 1+ Granulation Magnesium Level 1.9 Total Bilirubin 0.2 Direct Bilirubin 0.00 Indirect 0.2 Bilirubin Aspartate Amino 26 Transf (AST/SGOT ) Alanine 60 Aminotransferase (ALT/SGPT) Alkaline 303 H Phosphatase Total Protein 7.5 Albumin 3.4 Globulin 4.10 H Albumin/Globulin 0.82 Ratio Lab Scanned BLOOD TRANSFUSI Report ON Exam/Review of Systems Exam Vitals Vital Signs Date Temp Pulse Resp B/P (MAP) Pulse Ox O2 O2 Flow FiO2 Time Delivery Rate 11/15/18 97.8 108 18 120/84 98 Room Air 08:07 (96) Intake and Output 11/14/18 11/14/18 11/15/18 1414:59 22:59 06:59 IntakeIntake Total 850 ml BalanceBalance 850 ml Results Results 24hrs Laboratory Tests Test 11/14/18 13:56 11/15/18 04:00 11/15/18 04:59 11/15/18 06:36 White Blood 8.9 12.6 #H Count Red Blood Count 2.97 L 3.30 L Hemoglobin 7.1 L 8.1 L Hematocrit 21.9 L 25.1 L Mean Corpuscular 73.7 L 76.1 L Volume Mean Corpuscular 23.9 L 24.5 L Hemoglobin Mean Corpuscular 32.4 32.3 Hemoglobin Letty nt Red Cell 19.8 H 20.6 H Distribution Width Platelet Count 42 #L 39 L Mean Platelet 9.6 9.1 Volume Immature 11.400 H 15.100 H Granulocytes % Neutrophils % Segmented 45 66 Neutrophils % (Manual) Band Neutrophils 24 H 2 % (Manual) Lymphocytes % Lymphocytes % 14 L 14 L (Manual) Monocytes % Monocytes % 11 7 (Manual) Eosinophils % Basophils % Metamyelocytes % 1 H (manual) Promyelocytes % 1 H 6 H (Manual) Blast Cells % 4.0 H (Manual) Nucleated Red 1 H 1 H Blood Cells % Immature 1.020 H 1.910 H Granulocytes # Neutrophils # Neutrophils # 4.2 8.3 H (Manual) Band Neutrophils 2.1 H 0.2 # Lymphocytes 1.2 1.7 (Manual) Lymphocytes # Monocytes # Monocytes # 0.9 0.8 (Manual) Eosinophils # Basophils # Metamyelocytes # 0.0 Promyelocytes # 0.0 0.7 H Nucleated Red Blood Cells # Pathologist Review (Hematolo gy) White Cell @See below Morphology Comment Platelet DECREASED DECREASED Estimate Polychromasia 1+ 3+ Hypochromasia 2+ 1+ Anisocytosis 2+ 3+ Microcytosis 2+ 3+ Red Cell @See below Morphology Comment Prothrombin Time 15.3 H Prothrombin Time 1.2 Ratio INR 1.20 International Normalized Ratio Activated 34.8 Partial Thrombop last Time Path Consult RAMON HAIDER Signing Patholog MD ist Sodium Level 139 142 Potassium Level 3.1 L 3.5 Chloride Level 108 112 H Carbon Dioxide 22 24 Level Anion Gap 9 6 Blood Urea 12 11 Nitrogen Creatinine 0.93 0.95 Est Glomerular > 60 > 60 Filtrat Rate mL/min Glucose Level 110 86 Calcium Level 9.0 8.9 Lipase 381 H Hemoglobin A1c 5.6 Myelocytes % 5 H (Manual) Myelocytes # 0.6 H Toxic 1+ Granulation Magnesium Level 1.9 Total Bilirubin 0.2 Direct Bilirubin 0.00 Indirect 0.2 Bilirubin Aspartate Amino 26 Transf (AST/SGOT ) Alanine 60 Aminotransferase (ALT/SGPT) Alkaline 303 H Phosphatase Total Protein 7.5 Albumin 3.4 Globulin 4.10 H Albumin/Globulin 0.82 Ratio Lab Scanned BLOOD TRANSFUSI Report ON Imaging Imaging PROCEDURE: CT Chest, Abdomen and Pelvis with contrast. CLINICAL INDICATION: 33-year-old male. Metastatic testicular seminoma. IMPRESSION: 1. Enlarging left supraclavicular fossa adenopathy from 09/12/2018. 2. Sub centimeter, but enlarging superior mediastinal lymph nodes. 3. Enlarging distal para esophageal adenopathy. Enlarging adenopathy posterior to the descending thoracic aorta. 4. New bilateral pleural effusions with near complete atelectasis of the left lower lobe, subsegmental atelectasis involving the right lower lobe and lingula. 5. New multiple hepatic metastatic disease. 6. Mixed response of retroperitoneal and intraperitoneal adenopathy from 2018. Overall, disease has slightly increased. 7. New tumor invasion involving the left kidney with left internal renal stent in place. 8. Mild to moderate pelvic ascites, new. This could be metastatic ascites is that surrounds attenuating portion of the distal sigmoid colon. 9. Mass effect on the IVC due to adenopathy. Intraluminal extension is not exc luded. RPTAT: HLRS Jose Humphries Physician Date Time Electronically viewed and signed by Jose Humphries Physician on 10/14/2018 19:40 Medications Medication Current Medications IV Flush (NS 3 ml) 3 ml PER PROTOCOL IV ; Start 11/14/18 at 15:30 Ondansetron HCl (Zofran Inj) 4 mg Q6H PRN IV NAUSEA/VOMITING; Start 11/14/18 at 15:30 Acetaminophen (Tylenol Tab) 650 mg Q6H PRN PO .PAIN 1-3 OR TEMP; Start 11/14/18 at 15:30 Pantoprazole (Protonix Iv) 40 mg DAILY@06 IV Last administered on 11/15/18at 05:17; Admin Dose 40 MG; Start 11/15/18 at 06:00 Sodium Chloride 1,000 ml @ 50 mls/hr Q20H IV Last administered on 11/14/18at 20:48; Admin Dose 50 MLS/HR; Start 11/14/18 at 15:30 Metoprolol Succinate (Toprol Xl) 50 mg DAILY PO Last administered on 11/15/18at 08:56; Admin Dose 50 MG; Start 11/15/18 at 09:00 Oxycodone/ Acetaminophen (Endocet (10/ 325)) 1 tab Q4H PRN PO PAIN LEVEL 6-10 Last administered on 11/14/18 19:57; Admin Dose 1 TAB; Start 11/14/18 at 19:00 Hydromorphone HCl (Dilaudid) 0.5 mg Q4H PRN IV BREAKTHROUGH PAIN Last administered on 11/15/18 09:12; Admin Dose 0.5 MG; Start 11/14/18 at 19:00 Potassium Chloride (Potassium Chloride Pwd/Soln) 40 meq BID PO Last administered on 11/15/18 08:55; Admin Dose 40 MEQ; Start 11/14/18 at 21:00 BENJAMIN NOONAN Nov 15, 2018 09:33
[2018-11-15] MEDS ORDERED: HYDROmorphONE 0.5 MG/0.5 ML SYG IV STA (13:42)
[2018-11-15 14:15] VITALS: BP 110/78; PULSE 100; RESP 18
[2018-11-15] MEDS ORDERED: HYDR2TAB36 PO (14:21)
--- NOTE | 2018-11-15 15:23 | DS ---
DATE OF ADMISSION: 11/14/2018 DATE OF DISCHARGE: 11/15/2018 FINAL DIAGNOSES: 1. Severe anemia secondary to ongoing epistaxis: Status post 1 unit of packed red cells, stable hemoglobin, bleeding has resolved. 2. Epistaxis: Resolved. 3. Chronic thrombocytopenia, likely secondary to recent chemotherapy: Stable. No indication for platelet transfusion at this time. 4. Metastatic testicular carcinoma and seminoma. The patient was continued on chemo as outpatient. Next session next week. 5. Chronic tachycardia on metoprolol XL. 6. Incidental finding of an elevated lipase without clinical evidence of pancreatitis. 7. 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 8. Hypertension. CONSULTS ON THE CASE: We spoke via telephone with the patient's outpatient oncologist, Dr. Abhay Adrian. A partner of his was supposed to see the patient in the hospital, but has not reviewed the patient quite as yet. INTERVENTIONS: The patient received 1 unit of packed red cells. DISPOSITION: To home. ACTIVITIES: As tolerated. FOLLOWUP: The patient is going to follow up with oncology next week for continuation of outpatient chemotherapy. DISCHARGE CONDITION: Stable. DISCHARGE MEDICATIONS: The patient will be continued on his home: 1. Eliquis. 2. Metoprolol. For other information, please review the patient's chart. HOSPITAL COURSE: Full details are available in chart for review. In summary, this is a 33-year-old male with a known history of very aggressive metastatic seminoma, who is being managed as outpatient with Dr. Adrian and was recently here with sepsis and was found to be very tachycardic and he was also diagnosed at that time with a cardiac mass that could have been a new cancer versus metastasis. Based on this, he was referred to tertiary center, but he says that nothing was done. Instead, he was discharged to continue chemo as an outpatient. He came in because he has been having epistaxis because he was recently started on apixaban for recent PE. His hemoglobin was low. Based on this, his apixaban was held and he was transfused with good results. The epistaxis had stopped. We discussed extensively with his outpatient oncologist if we could resume the medication. The oncologist at this time has recommended that we continue apixaban weighing the risks of pulmonary embolism which could lead to versus epistaxis. The patient was also part of this discussion and he agreed with this plan. He was notified that at the first sign of bleeding, he was to stop taking the drug and call his oncologist or come to the nearest ER. We also did agree that at this time it will be okay for him to continue the apixaban and see his oncologist in the office next week as previously planned. Other than that, he is stable and is requesting to be discharged. I do not see any other barriers to discharge. The patient is to be discharged in stable condition. Time spent on coordination, speaking with the doctors and the patient multiple times so far has been almost 2 hours. For further information and clarification, please review the patient's chart. Dictated By: BENJAMIN NOONAN MD BA/NTS Conf#: [id number] DID#: [id number] CC: BRUCE DAVENPORT MD;*EndCC* MTDD
== END 2018-11-15 15:12 | disposition home or self-care (01) | DRG 812 ==
LOC: E/R 12:47 → MS1 15:23
PROVIDERS: ADMIT Internal Medicine; ATTEND Family Medicine
PROC: 093K7ZZ Control Bleeding in Nasal Mucosa and Soft Tissue, Via Natural or Artificial Opening (ICD-10-PCS; principal; 2018-11-14)
PROC: 30233N1 Transfusion of Nonautologous Red Blood Cells into Peripheral Vein, Percutaneous Approach (ICD-10-PCS; 2018-11-14)
DX: D64.9 Anemia, unspecified (principal); R04.0 Epistaxis; C62.90 Malignant neoplasm of unspecified testis, unspecified whether descended or undescended; D69.6 Thrombocytopenia, unspecified; R00.0 Tachycardia, unspecified; I10 Essential (primary) hypertension; E87.6 Hypokalemia
CPT/HCPCS: 36415; 36430; 80048; 80053; 83036; 83690; 83735; 85025; 85610; 85730; 86850; 86900; 86901; 86920; 96374; C9113; J1170; J7030; J7040; P9016